=== PATIENT | female | born 1945 | race Caucasian/White ===

== ENCOUNTER 2021-02-09 11:41 | Inpatient (IN) ==
[2021-02-09] MEDS ORDERED: ACETAMINOPHEN 325 MG TAB PO PRN (12:32)
[2021-02-09] MEDS ORDERED: ONDANSETRON INJ 2 MG/ML 2 ML VIAL IV PRN (12:32)
[2021-02-09] MEDS ORDERED: POLYETHYLENE (MIRALAX) 17 GM PACK PO PRN (12:32)
[2021-02-09] MEDS ORDERED: POTASSIUM CHLORIDE 10 MEQ / 100ML WTR IV STA ×2 (12:43→13:04)
[2021-02-09] MEDS ORDERED: CARBOHYDRATES FOR HYPOGLYCEMIA PO PRN ×2 (12:44→16:30)
[2021-02-09] MEDS ORDERED: DEXTROSE 50% 50 ML SYRINGE IV PRN ×2 (12:44→16:30)
[2021-02-09] MEDS ORDERED: GLUCAGON FOR INJ 1 MG VIAL SQ PRN (12:44)
[2021-02-09] MEDS ORDERED: GLUCOSE 10 TABS/TUBE PO PRN ×2 (12:44→16:30)
[2021-02-09] MEDS ORDERED: GLUCOSE 40% GEL 15 GM TUBE PO PRN ×2 (12:44→16:30)
[2021-02-09] MEDS ORDERED: MAGNESIUM SULFATE / D5W 1 GM/100 ML BAG IV STA (13:03)
[2021-02-09 13:47] LABS: Appearance Urine Clear (Clear); Bacteria Urine Automated 4+ (Negative); Bilirubin Urine Negative (Negative); Blood Urine Negative (Negative); Cast Urine Automated 0 /lpf (0-5); Color Urine Yellow; Epithelial Cell Urine Auto 0-5 /lpf (0-5); Glucose Urine UA Negative (Negative); Ketones Urine Negative (Negative); Leukocyte Esterase Urine 3+ (Negative); Nitrite Urine Negative (Negative); Protein Urine Negative (Negative); RBC Urine Automated 0-4 /hpf (0-4); Specific Gravity Urine 1.011 (1.000-1.030); Urobilinogen Urine Negative (Negative); WBC Urine Automated >30 /hpf (0-5); pH Urine 7.5 (4.5-7.5)
--- NOTE | 2021-02-09 14:49 | XRay Report ---
XR chest 2V PA/lateral HISTORY: Shortness of breath. Evaluate for mass. COMPARISON: Chest 11/24/2019. FINDINGS: No pneumothorax. No pleural effusions. The lungs are hyperexpanded with apical predominant emphysematous changes. Interstitial thickening at the lung bases favor vascular crowding from the emp hysema. Otherwise, no focal lung consolidations to suggest pneumonia. No evidence for pulmonary edema . Stable right hilar prominence and a linear scarlike density within the right midlung zone. Old post traumatic changes again noted within the left humeral head/neck. IMPRESSION: No significant change compared to the prior study. No acute process. Emphysema. ACT 112: Negative or not required by law. Electronically signed by: Austin Pacheco M.D. 02/09/2021 2:48 PM
[2021-02-09 15:27] LABS: Base Excess ABG 10.1 mEq/L (-9-1.8); HCO3 ABG 33 mmol/L (19-24); Oxygen Saturation ABG 99.1 % (90-95); PCO2 ABG 38 mmHg (35-46); PO2 ABG 137 mmHg (80-95)
[2021-02-09 15:36] LABS: Allen Test Pos (Pos)
[2021-02-09 15:38] LABS: pH ABG 7.56 (7.35-7.45)
--- NOTE | 2021-02-09 16:13 | History & Physical Report ---
Date of Service February 09, 2021 Assessment & Plan (1) Metabolic alkalosis: Plan: pt has a significant metabolic alkalosis secondary to dirlevy conley in the face of her typically compensated respiratory acidosis, making it difficult to compensate, will be given acetazolamide to help reduce serum bicarbinate levels given Ph is > 7.55 (2) Hyponatremia: Plan: Patient has severe hyponatremia her only symptoms are fatigue patient's urine sodium however is curiously low. Patient be volume restricted she appears euvolemic on exam awaiting osmolalities nephrology consultation is considering hypertonic saline certainly need to replete her other electrolytes (3) Hypokalemia: Plan: Patient's hypokalemia is significant she has received diuretics as an outpatient will currently replete with 30 mEq IV she received 20 p.o. in the emergency department she is due to receive another 80 p.o. over the next 12 hours (4) Chronic respiratory failure with hypoxia, on home O2 therapy: Plan: Patient suffers from COPD secondary to tobacco use she typically is on 3 L of oxygen at home with 4 L with exertion. (5) COPD (chronic obstructive pulmonary disease): Plan: Patient will continue on her inhaled medications at this time, she typically is on fluticasone salmeterol she will be offered duo nebs as needed if need be Patient is in a metabolic alkalosis at this point in time Dr. Carbajal saw the patient was ordered acetazolamide, (6) Lower extremity edema: (7) DVT prophylaxis: Plan: (Abuse for DVT prevention Plan: Clear etiology of lower extremity edema certainly in the face of oxygen requiring chronic lung disease cor pulmonale or pulmonary hypertension may be at play echocardiogram will be pending to evaluate right-sided heart pressures. Another consideration could be made thromboembolism as the patient recently had orthopedic surgery. Considerations for CT scan of the chest could be undertaken given the previous [facility] the [facility]. History of Present Illness Primary Care Provider: [facility] 75-year-old female who is a resident of [facility] for subacute rehab after sustaining a right hip fracture and repair November 29, 2020. Since November the patient's had progressive lower extremity swelling. She reportedly went to [facility] on DVT prevention after her hip. Patient subsequently had increasing shortness of breath and was referred to Dr. Francisco Carbajal for evaluation of his baseline COPD who typically wears 3 L of oxygen at rest and 4 L with exertion. When at Dr. Carbajal's office he noticed her outpatient laboratories had shown significant hyponatremia and hypokalemia and recommended she come to the hospital for evaluation. The patient's only complaint is severe fatigue she has a resting tremor which various medications have been tried to reduce she denies drinking excessive water she states she has had normal bowel and bladder function for her without excess of either she however does have a poor appetite and has been depressed lately. [facility] did [facility] her antidepressant and they have been trying various agents including ropinirole primidone and gabapentin to help tremors and restless leg. Interestingly the patient also said Covid this past August after having 1 of 2 vaccines. I personally spoke to Dr. Carbajal and Dr. Setpan Bennett regarding her hyponatremia. Dr. Ziegler rattling machine tender requests that if the patient's urine osmolality is not significantly low to give her 150 cc of 3% saline over 3 hours Allergies Allergy/AdvReac Type Severity Reaction Status Date / Time NSAIDS (Non-Steroidal AdvReac Gastrointestinal Verified 02/09/21 10:57 Anti-Inflamma Upset Sulfa (Sulfonamide AdvReac Gastrointestinal Verified 02/09/21 10:57 Antibiotics) Upset Home Medications Medication Instructions Recorded Confirmed Type alprazolam 0.5 mg tablet 0.5 mg PO Q12 11/24/19 02/09/21 History atorvastatin 10 mg tablet 10 mg PO HS 11/24/19 02/09/21 History calcium carbonate 500 mg (1,250 1 tab PO BID 11/24/19 02/09/21 History mg)-vitamin D3 200 unit tablet (Oyster Shell Calcium-Vit D3) citalopram 40 mg tablet 40 mg PO QAM 11/24/19 02/09/21 History cyanocobalamin (vitamin B-12) 1,000 mcg PO QAM 11/24/19 02/09/21 History 1,000 mcg tablet (Vitamin B-12) fluticasone propionate 115 2 puff INHALATION BID 11/24/19 02/09/21 History mcg-salmeterol 21 mcg/actuation HFA inhaler (Advair HFA) metformin 500 mg tablet 500 mg PO BID 11/24/19 02/09/21 History multivitamin (Multiple Vitamins) 1 tab PO QAM 11/24/19 02/09/21 History acetaminophen 500 mg tablet 1,000 mg PO TID PRN 02/09/21 02/09/21 History (Tylenol Extra Strength) aripiprazole 10 mg tablet 10 mg PO QAM 02/09/21 02/09/21 History cholecalciferol (vitamin D3) 125 5,000 unit PO QAM 02/09/21 02/09/21 History mcg (5,000 unit) capsule furosemide 20 mg tablet 40 mg PO BID PRN tab 02/09/21 02/09/21 History latanoprost 0.005 % eye drops 1 drp OPHTHALMIC (EYE) DAILY 02/09/21 02/09/21 History magnesium hydroxide 400 mg/5 mL 5 ml PO DAILY PRN 02/09/21 02/09/21 History oral suspension (Milk of Magnesia) metolazone 2.5 mg tablet 2.5 mg PO QAM PRN tab 02/09/21 02/09/21 History metoprolol tartrate 25 mg tablet 12.5 mg PO BID tab 02/09/21 02/09/21 History omeprazole 20 mg capsule,delayed 20 mg PO QAM 02/09/21 02/09/21 History release ondansetron HCl 4 mg tablet 4 mg PO Q4H PRN 02/09/21 02/09/21 History (Zofran) oxycodone 5 mg capsule 5 mg PO Q8H PRN 02/09/21 02/09/21 History oxycodone 5 mg capsule 10 mg PO Q6H PRN 02/09/21 02/09/21 History potassium chloride 20 mEq oral 40 meq PO TID 02/09/21 02/09/21 History packet primidone 50 mg tablet 50 mg PO QAM PRN tab 02/09/21 02/09/21 History ropinirole 0.25 mg tablet 0.25 mg PO HS 02/09/21 02/09/21 History trazodone 50 mg tablet 75 mg PO DAILY tab 02/09/21 02/09/21 History Past Med/Surg History Medical History Benzodiazepine dependence Breast CA Chronic respiratory failure with hypoxia, on home O2 therapy COPD (chronic obstructive pulmonary disease) Diverticulosis Glaucoma Hyperlipidemia Hypertension IBS (irritable bowel syndrome) Insomnia Nodule of right lung Osteoporosis RLS (restless legs syndrome) Rosacea Sensorineural deafness Tremor Urethral prolapse Urinary incontinence Vitamin D deficiency Surgical History H/O colonoscopy H/O right cataract extraction H/O right mastectomy History of esophagogastroduodenoscopy (EGD) History of tonsillectomy Hx of tubal ligation Status post myringotomy with insertion of tube Family History Other Cancer Colonic polyp Coronary heart disease Hypertension IBS (irritable bowel syndrome) Stroke Social History Smoking Status: Former smoker Tobacco Type: Cigarettes Number of Years Since Quit: 4; Hx Alcohol Use: No Preferred Language: Georgian Communication Ability: Effective Litigation Specialist Required: No Beliefs That Will Affect Care: None [facility] Current Living Situation Comment[facility] Feels Safe at Home: Yes Assistive Devices: Oxygen - Continuous Review of Systems Review of Systems: Mild distress and moderate fatigue no headache, no visual changes no speech or swallowing issues no chest pain, pressure or palpitations Baseline shortness of breath baseline sputum production with no change in color quantity or consistency, cough or wheezes no abdominal pain, nausea or vomiting, diarrhea or constipation no dysuria, hematuria or frequency Improving hip pain bilateral lower extremity swelling to knees no back pain, CVA tenderness or radicular pain no bruising, bleeding or rashes no focal signs of weakness or numbness or altered sensation no complaints of anxiety or depression.. Physical Exam Physical Exam: The patient appeared well nourished and normally developed. Vital signs as documented. Head exam is normocephalic atraumatic Neck is without JVD, thyromegaly, or carotid bruits. Lungs are clear to auscultation, no focal loss of breath sounds Cardiac exam, Rhythm is regular.. No murmurs, rubs or gallops. Abdominal exam reveals normal bowel sounds, soft non tender, no masses Extremities are trace to 1+ bilaterally lower extremity edema, both pedal pulses are present Neurologic exam is alert and oriented, he is of some clinical manifestations of parkinsonism. She does have some resting tremor but no pill-rolling tremor seems to extinguish when attention is paid to it Psychologically is without concerns for anxiety or depression Results & Data Results & Data ([facility]) Vital Signs (Past 12 Hours) Vital Signs Temp Pulse Resp BP Pulse Ox 02/09/21 11:46 97.9 F 73 18 107/63 99 Diagnostic Findings Chest X-Ray 02/09/21 12:46 XR chest 2V PA/lateral HISTORY: Shortness of breath. Evaluate for mass. COMPARISON: Chest 11/24/2019. FINDINGS: No pneumothorax. No pleural effusions. The lungs are hyperexpanded with apical predominant emphysematous changes. Interstitial thickening at the lung bases favor vascular crowding from the emphysema. Otherwise, no focal lung consolidations to suggest pneumonia. No evidence for pulmonary edema. Stable right hilar prominence and a linear scarlike density within the right midlung zone. Old posttraumatic changes again noted within the left humeral head/neck. IMPRESSION: No significant change compared to the prior study. No acute process. Emphysema. ACT 112: Negative or not required by law. Electronically signed by: Austin Pacheco M.D. 02/09/2021 2:48 PM Code Status & VTE Plan Code Status DNR VTE Prophylaxis Plan VTE Prophylaxis will be ordered: Yes PG Care Time/CCT Total # of Minutes Spent Total Time Spent with Patient: Total time spent is greater than 50% in coordination of care (as documented) at patient's floor/unit and/or counseling patient: Coding Level of Care Code 78365 Initial Inpt Care Lvl 3 Diagnoses Hyponatremia E87.1 Hypokalemia E87.6 Chronic respiratory failure with hypoxia, on home O2 therapy J96.11; Z99.81 COPD (chronic obstructive pulmonary disease) J44.9 COPD type: unspecified COPD Lower extremity edema R60.0 Metabolic alkalosis E87.3 DVT prophylaxis Z29.9 (1) COPD (chronic obstructive pulmonary disease) COPD type: unspecified COPD Qualified Code(s): J44.9 - Chronic obstructive pulmonary disease, unspecified
[2021-02-09] MEDS ORDERED: POTASSIUM CHLORIDE 10 MEQ / 100ML WTR IV ONE (16:19)
[2021-02-09 16:30] LABS: BUN Creatinine Ratio 14.1 (10-20); Blood Urea Nitrogen 13 mg/dl (7-18); Calcium 8.7 mg/dl (8.5-10.1); Carbon Dioxide 35 mmol/L (21-32); Chloride 70 mmol/L (98-107); Est GFR (African American) 73.5 ml/min; Est GFR (Non-African American) 63.4 ml/min; Glucose 169 mg/dl (70-99); Sodium 114 mmol/L (136-145)
[2021-02-09] MEDS ORDERED: GLUCAGON FOR INJ 1 MG VIAL IM PRN (16:30)
[2021-02-09] MEDS: POTASSIUM CHLORIDE / WTR 10 MEQ/100 ML PLCT IV SCH ×2 (16:46→17:46)
--- NOTE | 2021-02-09 19:36 | Nephrology Consultation ---
Date of Consultation February 09, 2021 Assessment & Plan (1) Hyponatremia: Severe, chronic hyponatremia. Assessment suggests that Haylee may have mild symptoms including confusion, mild nausea, and poor appetite. She has a normal serum creatinine. Dysnatremia is related to diuretic use, notably the use of metolazone. This has been complicated by poor solute intake. Urine sodium is low at 15. She is intravascularly contracted and will need to be closely monitored as hypokalemia and intravascular volume are corrected. She certainly has the ability to autocorrect. Urine osmolality suggestive of decreased EAV as well as possible SIADH. Certainly multiple medications as well as underlying lung disease may contribute to SIADH. At this time, goal will be slow immediate correction of ~2-3 mmol/L. Avoid correction >0.5 mmol/L/hr. A bolus of 150 ml 3% saline is ordered to infuse over 3 hours. Metabolic profile will then be rechecked and monitored every 4 hours. TTE pending. (2) Hypokalemia: Attributed to diuretics and poor oral intake. IV replacement has been provided repeat labs pending. (3) Metabolic alkalosis: Related to volume contraction and diuretics. Acetazolimide has been provided. I expect this to improve with IV salt replacement as well. History of Present Illness Reason for Consultation: Hyponatremia Requesting Physician: aJmes Spivey Attending Physician: James Spivey History of Present Illness Mrs. Haylee Plaza is a 75 year old female with COPD, significant smoking history, dementia, depression, RLS, NIDDM, OA/DJD who was referred from the lmonology clinic to the ER today for evaluation of hyponatremia. I discussed the patient's condition with Dr. Carbajal earlier today. Haylee is a resident at [facility] following [facility]IF for a right hip fracture in November. Since admission to subacute rehab, she has experienced progressive lower extremity edema. She has been on increasing doses of diuretics and was referred to Dr. Carbajal for additional evaluation. Laboratory studies over the past month have demonstrated progressive hyponatremia and hypokalemia. Serum sodium: 136 on January 31; 130 on February 02; 125 on February 06; and 116 on February 08. I discussed the patient's condition and plan of care with Dr. Spivey earlier today. I saw and evaluated Haylee in the ER this evening. She was not aware of the reason for the admission. She states that her breathing is comfortable. She denies any GI symptoms, including diarrhea. She does note that her appetite has been very poor. aHylee states that she has been feeling well recently. She is a very poor hi storian however. She told Stephen was able to tell me her name and date of . She did not know the date including month or year. She told me that she lives in [place] and after I asked if she was a resident at [facility] recalled the facility. She was not able to tell me the name of the hospital or the SNF that she resides. She was not able to name the president. She did tell me that she has been very tired and depressed recently. She also noted that she has been struggling with severe RLS. It is noted that citalopram was recently increased and various medications including ropinirole, primidone, and gabapentin have been used to control tremors and restless legs. In the ER, she was treated with 30 mEq IV KCl and 1 gram magnesium sulfate. Serum sodium 114 mmol/L and potassium 3.0 mmol/L. Urine osmolality 290. ABG demonstrating a metabolic alkalosis with pH 7.55 for which acetazolamide was prescribed. Allergies Allergy/AdvReac Type Severity Reaction Status Date / Time NSAIDS (Non-Steroidal AdvReac Gastrointestinal Verified 02/09/21 10:57 Anti-Inflamma Upset Sulfa (Sulfonamide AdvReac Gastrointestinal Verified 02/09/21 10:57 Antibiotics) Upset Home Medications Medication Instructions Recorded Confirmed Type alprazolam 0.5 mg tablet 0.5 mg PO Q12 11/24/19 02/09/21 History atorvastatin 10 mg tablet 10 mg PO HS 11/24/19 02/09/21 History calcium carbonate 500 mg (1,250 1 tab PO BID 11/24/19 02/09/21 History mg)-vitamin D3 200 unit tablet (Oyster Shell Calcium-Vit D3) citalopram 40 mg tablet 40 mg PO QAM 11/24/19 02/09/21 History cyanocobalamin (vitamin B-12) 1,000 mcg PO QAM 11/24/19 02/09/21 History 1,000 mcg tablet (Vitamin B-12) fluticasone propionate 115 2 puff INHALATION BID 11/24/19 02/09/21 History mcg-salmeterol 21 mcg/actuation HFA inhaler (Advair HFA) metformin 500 mg tablet 500 mg PO BID 11/24/19 02/09/21 History multivitamin (Multiple Vitamins) 1 tab PO QAM 11/24/19 02/09/21 History acetaminophen 500 mg tablet 1,000 mg PO TID PRN 02/09/21 02/09/21 History (Tylenol Extra Strength) aripiprazole 10 mg tablet 10 mg PO QAM 02/09/21 02/09/21 History cholecalciferol (vitamin D3) 125 5,000 unit PO QAM 02/09/21 02/09/21 History mcg (5,000 unit) capsule furosemide 20 mg tablet 40 mg PO BID PRN tab 02/09/21 02/09/21 History latanoprost 0.005 % eye drops 1 drp OPHTHALMIC (EYE) DAILY 02/09/21 02/09/21 History magnesium hydroxide 400 mg/5 mL 5 ml PO DAILY PRN 02/09/21 02/09/21 History oral suspension (Milk of Magnesia) metolazone 2.5 mg tablet 2.5 mg PO QAM PRN tab 02/09/21 02/09/21 History metoprolol tartrate 25 mg tablet 12.5 mg PO BID tab 02/09/21 02/09/21 History omeprazole 20 mg capsule,delayed 20 mg PO QAM 02/09/21 02/09/21 History release ondansetron HCl 4 mg tablet 4 mg PO Q4H PRN 02/09/21 02/09/21 History (Zofran) oxycodone 5 mg capsule 5 mg PO Q8H PRN 02/09/21 02/09/21 History oxycodone 5 mg capsule 10 mg PO Q6H PRN 02/09/21 02/09/21 History potassium chloride 20 mEq oral 40 meq PO TID 02/09/21 02/09/21 History packet primidone 50 mg tablet 50 mg PO QAM PRN tab 02/09/21 02/09/21 History ropinirole 0.25 mg tablet 0.25 mg PO HS 02/09/21 02/09/21 History trazodone 50 mg tablet 75 mg PO DAILY tab 02/09/21 02/09/21 History Patient History Medical History Benzodiazepine dependence Breast CA Chronic respiratory failure with hypoxia, on home O2 therapy COPD (chronic obstructive pulmonary disease) Diverticulosis Glaucoma Hyperlipidemia Hypertension IBS (irritable bowel syndrome) Insomnia Nodule of right lung Osteoporosis RLS (restless legs syndrome) Rosacea Sensorineural deafness Tremor Urethral prolapse Urinary incontinence Vitamin D deficiency Surgical History H/O colonoscopy H/O right cataract extraction H/O right mastectomy History of esophagogastroduodenoscopy (EGD) History of tonsillectomy Hx of tubal ligation Status post myringotomy with insertion of tube Family History Other Cancer Colonic polyp Coronary heart disease Hypertension IBS (irritable bowel syndrome) Stroke Social History Smoking Status: Former smoker Tobacco Type: Cigarettes Number of Years Since Quit: 4; Hx Alcohol Use: No Preferred Language: Irish Feels Safe at Home: Yes Review of Systems Constitutional: + fatigue and + anorexia; no weight loss, no weight gain and no problem reported Eyes: no problem reported Ear, Nose, Mouth, Throat: no problem reported Respiratory: no problem reported Cardiovascular: no problem reported Gastrointestinal: no problem reported Musculoskeletal: no problem reported Integumentary: no problem reported Neurologic: no problem reported Psychiatric: no problem reported Endocrine: no problem reported Hematologic / Lymphatic: no problem reported Physical Exam Constitutional: well developed; no acute distress Eyes: no scleral abnormality and no corneal abnormality ENMT: Mouth: no oral mucosal abnormality and oral mucous membranes not dry Neck: normal visual inspection and trachea midline Respiratory: normal respiratory effort Auscultation: lungs clear to auscultation bilaterally Cardiovascular: Rate/Rhythm: regular rate Heart Sounds: normal S1 and normal S2 Extremities: + edema Musculoskeletal: Extremities: no cyanosis and no clubbing Skin: normal turgor; no lesions Neurologic: Motor/Sensory: no tremor and no asterixis Psychiatric: Orientation: alert and oriented x 3 Results & Data ([facility]) Vital Signs (Past 12 Hours) Vital Signs Temp Pulse Resp BP Pulse Ox 02/09/21 17:00 70 15 119/57 L 98 02/09/21 16:30 71 14 113/49 L 97 02/09/21 16:00 74 22 111/55 L 95 02/09/21 15:30 76 25 H 96 02/09/21 15:01 77 17 95 02/09/21 14:30 78 18 110/62 97 02/09/21 14:00 75 17 116/63 93 02/09/21 11:46 36.6 C 73 18 107/63 99 Laboratory Results Laboratory Results - last 24 hr 02/09/21 02/09/21 02/09/21 12:50 12:50 13:24 ABG pH ABG pCO2 ABG pO2 ABG HCO3 ABG O2 Saturation ABG Base Excess Tico Test Barometric Pressure Oxygen Given Sodium Potassium Chloride Carbon Dioxide Anion Gap BUN Creatinine Est Cr Clr Drug Dosing Est GFR ( Amer) Est GFR (Non-Af Amer) BUN/Creatinine Ratio Glucose POC Glucose Osmolality Calcium Urine Color Yellow Urine Appearance Clear Urine pH 7.5 Ur Specific Rolla 1.011 Urine Protein Negative Urine Glucose (UA) Negative Urine Ketones Negative Urine Blood Negative Urine Nitrite Negative Urine Bilirubin Negative Urine Urobilinogen Negative Ur Leukocyte Esterase 3+ H Urine WBC (Auto) >30 H Urine RBC (Auto) 0-4 U Hyaline Cast (Auto) 0 U Epithel Cells (Auto) 0-5 Urine Bacteria (Auto) 4+ H Urine Osmolality Ur Random Sodium COVID-19 Eval Order Covid19 at [facility] SARS-CoV-2 (PCR) NEGATIVE 02/09/21 02/09/21 02/09/21 13:24 13:24 15:12 ABG pH ABG pCO2 ABG pO2 ABG HCO3 ABG O2 Saturation ABG Base Excess Tico Test Barometric Pressure Oxygen Given Sodium Potassium Chloride Carbon Dioxide Anion Gap BUN Creatinine Est Cr Clr Drug Dosing Est GFR ( Amer) Est GFR (Non-Af Amer) BUN/Creatinine Ratio Glucose POC Glucose Osmolality Cancelled Calcium Urine Color Urine Appearance Urine pH Ur Specific Roll[place] Urine Protein Urine Glucose (UA) Urine Ketones Urine Blood Urine Nitrite Urine Bilirubin Urine Urobilinogen Ur Leukocyte Esterase Urine WBC (Auto) Urine RBC (Auto) U Hyaline Cast (Auto) U Epithel Cells (Auto) Urine Bacteria (Auto) Urine Osmolality 297 L Ur Random Sodium 15 COVID-19 Eval Order SARS-CoV-2 (PCR) 02/09/21 02/09/21 02/09/21 15:12 15:57 15:57 ABG pH 7.56 H* ABG pCO2 38 ABG pO2 137 H ABG HCO3 33 H ABG O2 Saturation 99.1 H ABG Base Excess 10.1 H Tico Test Pos Barometric Pressure 734.2 Oxygen Given 4L Sodium 114 L* Potassium 3.0 L Chloride 70 L Carbon Dioxide 35 H Anion Gap 10.0 BUN 13 Creatinine 0.90 Est Cr Clr Drug Dosing Not Reportable Est GFR ( Amer) 73.5 Est GFR (Non-Af Amer) 63.4 BUN/Creatinine Ratio 14.1 Glucose 169 H POC Glucose Osmolality 250 L Calcium 8.7 Urine Color Urine Appearance Urine pH Ur Specific Roll[place] Urine Protein Urine Glucose (UA) Urine Ketones Urine Blood Urine Nitrite Urine Bilirubin Urine Urobilinogen Ur Leukocyte Esterase Urine WBC (Auto) Urine RBC (Auto) U Hyaline Cast (Auto) U Epithel Cells (Auto) Urine Bacteria (Auto) Urine Osmolality Ur Random Sodium COVID-19 Eval Order SARS-CoV-2 (PCR) 02/09/21 02/09/21 18:22 19:34 ABG pH ABG pCO2 ABG pO2 ABG HCO3 ABG O2 Saturation ABG Base Excess Tico Test Barometric Pressure Oxygen Given Sodium Pending Potassium Pending Chloride Pending Carbon Dioxide Pending Anion Gap Pending BUN Pending Creatinine Pending Est Cr Clr Drug Dosing Pending Est GFR ( Amer) Pending Est GFR (Non-Af Amer) Pending BUN/Creatinine Ratio Pending Glucose Pending POC Glucose 180 H Osmolality Calcium Pending Urine Color Urine Appearance Urine pH Ur Specific Roll[place] Urine Protein Urine Glucose (UA) Urine Ketones Urine Blood Urine Nitrite Urine Bilirubin Urine Urobilinogen Ur Leukocyte Esterase Urine WBC (Auto) Urine RBC (Auto) U Hyaline Cast (Auto) U Epithel Cells (Auto) Urine Bacteria (Auto) Urine Osmolality Ur Random Sodium COVID-19 Eval Order SARS-CoV-2 (PCR) PG Care Time/CCT Total # of Minutes Spent Total Time Spent with Patient: Total time spent is greater than 50% in coordination of care (as documented) at patient's floor/unit and/or counseling patient: 40 minutes Coding Level of Care Code 47906 Inpt Consult Level 5 Diagnoses Hypokalemia E87.6 Hyponatremia E87.1 Metabolic alkalosis E87.3
[2021-02-09] MEDS ORDERED: SODIUM CHLORIDE 3 % 500 ML IV SCH (20:00)
[2021-02-09] MEDS ORDERED: PATIENT'S HEIGHT AND/OR WEIGHT NEEDED SCH (20:00)
[2021-02-09 20:31] LABS: BUN Creatinine Ratio 16.5 (10-20); Calcium 8.9 mg/dl (8.5-10.1); Creatinine Clr Calc Pharmacy 67.4 ml/min; Est GFR (African American) 90.2 ml/min; Est GFR (Non-African American) 77.8 ml/min; Potassium 3.2 mmol/L (3.5-5.1)
[2021-02-09] MEDS ORDERED: POTASSIUM CHLORIDE CRTAB 20 MEQ TABCR PO SCH ×2 (21:00)
[2021-02-09] MEDS: INSULIN ASPART 100 UNITS/ML 3 ML PEN SC SCH ×2 (22:16→22:18)
[2021-02-09] MEDS: ENOXAPARIN INJ 40 MG/0.4 ML SYR SQ SCH (22:19)
[2021-02-09] MEDS: acetaZOLAMIDE 250 MG TAB PO SCH (22:20)
[2021-02-09] MEDS: METOPROLOL TARTRATE 25 MG TAB PO SCH (22:20)
[2021-02-10] LABS: BUN Creatinine Ratio 16.3 (10-20); Calcium 8.8 mg/dl (8.5-10.1); Creatinine Clr Calc Pharmacy 72.1 ml/min; Est GFR (African American) 97.9 ml/min; Est GFR (Non-African American) 84.5 ml/min; Potassium 2.7 mmol/L (3.5-5.1)
[2021-02-10] MEDS ORDERED: SODIUM CHLORIDE 3 % 500 ML IV SCH (00:30)
[2021-02-10] MEDS: POTASSIUM CHLORIDE / WTR 10 MEQ/100 ML PLCT IV SCH ×9 (00:40→12:35)
[2021-02-10 03:46] LABS: Hematocrit (blood only) 28.6 % (37-47); Hemoglobin 9.1 g/dL (12.0-16.0); Mean Corpuscular Hgb Conc 31.8 g/dL (32-36); Mean Corpuscular Volume 69.1 fL (80-100); Mean Platelet Volume 9.8 fL (7.4-10.4); Platelet Count 305 K/uL (130-400); RDW Coefficient of Variation 15.1 % (11.5-14.5); RDW Standard Deviation 37.9 fL (36.4-46.3); Red Blood Count 4.14 M/uL (4.2-5.4); White Blood Count 8.43 K/uL (4.8-10.8)
[2021-02-10 04:09] LABS: BUN Creatinine Ratio 17.9 (10-20); Calcium 8.6 mg/dl (8.5-10.1); Creatinine Clr Calc Pharmacy 77.6 ml/min; Est GFR (African American) 101.6 ml/min; Est GFR (Non-African American) 87.6 ml/min; Magnesium 2.1 mg/dl (1.8-2.4); Potassium 2.7 mmol/L (3.5-5.1)
[2021-02-10] MEDS ORDERED: POTASSIUM CHLORIDE CRTAB 20 MEQ TABCR PO STA (04:21)
[2021-02-10 04:42] LABS: Phosphorus 2.7 mg/dl (2.5-4.9)
[2021-02-10] MEDS ORDERED: POTASSIUM CHLORIDE 10 MEQ / 100ML WTR IV STA (07:22)
[2021-02-10] MEDS: FLUTICASONE/VILANTEROL 200/25MCG 14 PUFFS/INHALER INH SCH (08:13)
[2021-02-10] MEDS: acetaZOLAMIDE 250 MG TAB PO SCH ×2 (08:14→16:10)
[2021-02-10] MEDS: METOPROLOL TARTRATE 25 MG TAB PO SCH ×2 (08:14→21:04)
[2021-02-10] MEDS: MULTIVITAMIN TAB PO SCH (08:15)
[2021-02-10 08:16] LABS: Estimated Average Glucose 169 mg/dl; Hemoglobin A1C 7.5 % (4.5-5.6)
[2021-02-10] MEDS: POTASSIUM CHLORIDE CRTAB 20 MEQ TABCR PO SCH ×3 (08:16→21:04)
[2021-02-10] MEDS: INSULIN ASPART 100 UNITS/ML 3 ML PEN SC SCH ×4 (08:20→21:13)
--- NOTE | 2021-02-10 08:40 | Pulmonology Progress Note ---
Date of Service February 10, 2021 Assessment & Plan (1) COPD (chronic obstructive pulmonary disease): Plan: Impression: 75-year-old female with advanced COPD admitted with symptomatic hyponatremia. Her x-ray is stable. Recommendations: 1. COPD: Continue Breo. We will add Incruse to her regimen. She is not wheezing or bronchospastic currently. No indication for steroids or antibiotics at this point time. 2. Chronic hypoxemic respiratory failure: Continue supplemental oxygen titrated to keep saturations at or above 88%. 3. Management of the patient's electrolyte abnormalities and acid-base status is deferred to nephrology and the patient's primary admitting service. Defer evaluation of her lower extremity edema to the primary service as well. Patient's respiratory status appears to be stable at this point time. I think that her dyspnea may be attributable to her underlying electrolyte abnormalities. Recommend PT and OT evaluations. We will follow up with her tomorrow COPD type: unspecified COPD Qualified Code(s): J44.9 - Chronic obstructive pulmonary disease, unspecified (2) Chronic respiratory failure with hypoxia, on home O2 therapy: (3) Metabolic alkalosis: Admission and Anticipated Discharge Date Admission Date: February 09, 2021 Subjective Patient seen and examined. EMR reviewed. The patient is sitting up at the bedside. She complains of continued shortness of breath and generalized malaise. She is not coughing or expectorating significant phlegm. Review of Systems Review of Systems: Unchanged from prior Physical Exam Constitutional: well developed; no acute distress Eyes: no scleral abnormality and no corneal abnormality ENMT: Mouth: no oral mucosal abnormality and oral mucous membranes not dry Neck: normal visual inspection and trachea midline Respiratory: normal respiratory effort Auscultation: lungs clear to auscultation bilaterally Cardiovascular: Rate/Rhythm: regular rate Heart Sounds: normal S1 and normal S2 Extremities: + edema Musculoskeletal: Extremities: no cyanosis and no clubbing Skin: normal turgor; no lesions Neurologic: Motor/Sensory: no tremor and no asterixis Psychiatric: Orientation: alert and oriented x 3 Results & Data Results & Data ([facility]) Vital Signs (Past 12 Hours) Vital Signs Temp Pulse Pulse Pulse Resp BP Pulse Ox 02/10/21 08:00 36.7 C 88 18 102/63 99 02/10/21 06:12 70 02/10/21 03:54 36.6 C 70 18 120/71 96 07/15/21 23:37 37.0 C 18 110/66 95 Laboratory Results 02/10/21 03:34 Arterial blood gas 7.5 6/38/137/33 Sodium last evening was 117 with potassium of 2.7. Chemistries this morning are pending Serum osmolality 250 Hemoglobin A1c 7.5 Urine awesome to 97 Urine sodium 15 Diagnostic Findings Chest x-ray was independently reviewed. It demonstrated emphysematous changes with no acute findings. PG Care Time/CCT Total # of Minutes Spent Total Time Spent with Patient: Total time spent is greater than 50% in coordination of care (as documented) at patient's floor/unit and/or counseling patient: Coding Level of Care Code 99544 Subseq Hosp Care Lvl 3 Diagnoses COPD (chronic obstructive pulmonary disease) J44.9 COPD type: unspecified COPD Chronic respiratory failure with hypoxia, on home O2 therapy J96.11; Z99.81 Metabolic alkalosis E87.3
[2021-02-10 09:29] LABS: BUN Creatinine Ratio 15.1 (10-20); Calcium 8.2 mg/dl (8.5-10.1); Creatinine Clr Calc Pharmacy 73.2 ml/min; Est GFR (African American) 99.6 ml/min; Potassium 3.1 mmol/L (3.5-5.1)
[2021-02-10] MEDS ORDERED: SODIUM CHLORIDE 1 GM TABLET PO STA ×2 (10:05→17:28)
[2021-02-10] MEDS: UMECLIDINIUM BROMIDE 62.5MCG/BLISTER 7 PUFFS/INHALER INH SCH (10:05)
--- NOTE | 2021-02-10 10:09 | Nephrology Progress Note ---
Date of Service February 10, 2021 Assessment & Plan (1) Hyponatremia: Plan: Attributed to diuretics and poor oral solute intake. Appropriate improvement overnight with fluid restriction and 150 ml of hypertonic saline. Haylee continues to require a large amount of potassium replacement this AM. Prior to most recent labs, 20 mEq of potassium had been given IV. An additional 30 mEq IV and 40 mEq PO are ordered. I have ordered 1 gm of PO NaCl and a repeat metabolic profile for this afternoon. Urine osmolality will also be measured, I suspect she may start to correct since diuretics have been held and intravascular volume restored. Volume status acceptable. Continue to hold diuretics. Encourage dietary protein intake. Daily fluid restriction 1.2 L. TTE pending. (2) Hypokalemia: Plan: IV and PO replacement ordered. Repeat labs this afternoon including K+ and Mg+. (3) Metabolic alkalosis: Plan: Related to volume contraction and diuretics. Acetazolamide has been provided. Admission and Anticipated Discharge Date Admission Date: February 09, 2021 Subjective No acute events overnight. Haylee was upset and emotional this AM. She is frustrated about being in the hospital and her IVs are making her uncomfortable. Appetite remains poor. She denies any shortness of breath. No nausea reported. No GI complaints. Review of Systems Constitutional: + anorexia; no problem reported Eyes: no problem reported Ear, Nose, Mouth, Throat: no problem reported Respiratory: no problem reported Cardiovascular: no problem reported Gastrointestinal: no problem reported Musculoskeletal: no problem reported Integumentary: no problem reported Neurologic: no problem reported Psychiatric: no problem reported Endocrine: no problem reported Hematologic / Lymphatic: no problem reported Physical Exam Constitutional: well developed; no acute distress Eyes: no scleral abnormality and no corneal abnormality ENMT: Mouth: no oral mucosal abnormality and oral mucous membranes not dry Neck: normal visual inspection and trachea midline Respiratory: normal respiratory effort Auscultation: lungs clear to auscultation bilaterally Cardiovascular: Rate/Rhythm: regular rate Heart Sounds: normal S1 and normal S2 Extremities: + edema Musculoskeletal: Extremities: no cyanosis and no clubbing Skin: normal turgor; no lesions Neurologic: Motor/Sensory: no tremor and no asterixis Psychiatric: Orientation: alert and oriented x 3 Results & Data ([facility]) Vital Signs (Past 12 Hours) Vital Signs Temp Pulse Pulse Pulse Resp BP Pulse Ox 02/10/21 08:00 36.7 C 87 88 18 102/63 99 02/10/21 06:12 70 02/10/21 03:54 36.6 C 70 18 120/71 96 02/09/21 23:37 37.0 C 18 110/66 95 Laboratory Results Laboratory Results - last 24 hr 02/09/21 02/09/21 02/09/21 12:50 12:50 13:24 WBC RBC Hgb Hct MCV MCH MCHC RDW Std Deviation RDW Coeff of Zen Plt Count MPV ABG pH ABG pCO2 ABG pO2 ABG HCO3 ABG O2 Saturation ABG Base Excess [place] Test Barometric Pressure Oxygen Given Sodium Potassium Chloride Carbon Dioxide Anion Gap BUN Creatinine Est Cr Clr Drug Dosing Est GFR ( Amer) Est GFR (Non-Af Amer) BUN/Creatinine Ratio Glucose POC Glucose Estimat Average Glucose Hemoglobin A1c Osmolality Calcium Phosphorus Magnesium Urine Color Yellow Urine Appearance Clear Urine pH 7.5 Ur Specific [place] 1.011 Urine Protein Negative Urine Glucose (UA) Negative Urine Ketones Negative Urine Blood Negative Urine Nitrite Negative Urine Bilirubin Negative Urine Urobilinogen Negative Ur Leukocyte Esterase 3+ H Urine WBC (Auto) >30 H Urine RBC (Auto) 0-4 U Hyaline Cast (Auto) 0 U Epithel Cells (Auto) 0-5 Urine Bacteria (Auto) 4+ H Urine Osmolality Ur Random Sodium Nasal Screen MRSA (PCR) COVID-19 Eval Order Covid19 at [facility] SARS-CoV-2 (PCR) NEGATIVE 02/09/21 02/09/21 02/09/21 13:24 13:24 15:12 WBC RBC Hgb Hct MCV MCH MCHC RDW Std Deviation RDW Coeff of Zen Plt Count MPV ABG pH ABG pCO2 ABG pO2 ABG HCO3 ABG O2 Saturation ABG Base Excess [place] Test Barometric Pressure Oxygen Given Sodium Potassium Chloride Carbon Dioxide Anion Gap BUN Creatinine Est Cr Clr Drug Dosing Est GFR ( Amer) Est GFR (Non-Af Amer) BUN/Creatinine Ratio Glucose POC Glucose Estimat Average Glucose Hemoglobin A1c Osmolality Cancelled Calcium Phosphorus Magnesium Urine Color Urine Appearance Urine pH Ur Specific [place] Urine Protein Urine Glucose (UA) Urine Ketones Urine Blood Urine Nitrite Urine Bilirubin Urine Urobilinogen Ur Leukocyte Esterase Urine WBC (Auto) Urine RBC (Auto) U Hyaline Cast (Auto) U Epithel Cells (Auto) Urine Bacteria (Auto) Urine Osmolality 297 L Ur Random Sodium 15 Nasal Screen MRSA (PCR) COVID-19 Eval Order SARS-CoV-2 (PCR) 02/09/21 02/09/21 02/09/21 15:12 15:57 15:57 WBC RBC Hgb Hct MCV MCH MCHC RDW Std Deviation RDW Coeff of Zen Plt Count MPV ABG pH 7.56 H* ABG pCO2 38 ABG pO2 137 H ABG HCO3 33 H ABG O2 Saturation 99.1 H ABG Base Excess 10.1 H [place]ico Test Pos Barometric Pressure 734.2 Oxygen Given 4L Sodium 114 L* Potassium 3.0 L Chloride 70 L Carbon Dioxide 35 H Anion Gap 10.0 BUN 13 Creatinine 0.90 Est Cr Clr Drug Dosing Not Reportable Est GFR ( Amer) 73.5 Est GFR (Non-Af Amer) 63.4 BUN/Creatinine Ratio 14.1 Glucose 169 H POC Glucose Estimat Average Glucose Hemoglobin A1c Osmolality 250 L Calcium 8.7 Phosphorus Magnesium Urine Color Urine Appearance Urine pH Ur Specific [place] Urine Protein Urine Glucose (UA) Urine Ketones Urine Blood Urine Nitrite Urine Bilirubin Urine Urobilinogen Ur Leukocyte Esterase Urine WBC (Auto) Urine RBC (Auto) U Hyaline Cast (Auto) U Epithel Cells (Auto) Urine Bacteria (Auto) Urine Osmolality Ur Random Sodium Nasal Screen MRSA (PCR) COVID-19 Eval Order SARS-CoV-2 (PCR) 02/09/21 02/09/21 02/09/21 18:22 19:34 20:00 WBC RBC Hgb Hct MCV MCH MCHC RDW Std Deviation RDW Coeff of Zen Plt Count MPV ABG pH ABG pCO2 ABG pO2 ABG HCO3 ABG O2 Saturation ABG Base Excess [place] Test Barometric Pressure Oxygen Given Sodium 117 L* Potassium 3.2 L Chloride 73 L Carbon Dioxide 36 H Anion Gap 8.0 BUN 13 Creatinine 0.76 Est Cr Clr Drug Dosing 67.4 Est GFR ( Amer) 90.2 Est GFR (Non-Af Amer) 77.8 BUN/Creatinine Ratio 16.5 Glucose 152 H POC Glucose 180 H Estimat Average Glucose Hemoglobin A1c Osmolality Calcium 8.9 Phosphorus Magnesium Urine Color Urine Appearance Urine pH Ur Specific [place] Urine Protein Urine Glucose (UA) Urine Ketones Urine Blood Urine Nitrite Urine Bilirubin Urine Urobilinogen Ur Leukocyte Esterase Urine WBC (Auto) Urine RBC (Auto) U Hyaline Cast (Auto) U Epithel Cells (Auto) Urine Bacteria (Auto) Urine Osmolality Ur Random Sodium Nasal Screen MRSA (PCR) Negative COVID-19 Eval Order SARS-CoV-2 (PCR) 02/09/21 02/09/21 02/10/21 20:23 23:04 03:34 WBC 8.43 RBC 4.14 L Hgb 9.1 L Hct 28.6 L MCV 69.1 L MCH 22.0 L MCHC 31.8 L RDW Std Deviation 37.9 RDW Coeff of Zen 15.1 H Plt Count 305 MPV 9.8 ABG pH ABG pCO2 ABG pO2 ABG HCO3 ABG O2 Saturation ABG Base Excess [place] Test Barometric Pressure Oxygen Given Sodium 117 L* Potassium 2.7 L D Chloride 73 L Carbon Dioxide 36 H Anion Gap 8.0 BUN 12 Creatinine 0.71 Est Cr Clr Drug Dosing 72.1 Est GFR ( Amer) 97.9 Est GFR (Non-Af Amer) 84.5 BUN/Creatinine Ratio 16.3 Glucose 153 H POC Glucose 169 H Estimat Average Glucose Hemoglobin A1c Osmolality Calcium 8.8 Phosphorus Magnesium Urine Color Urine Appearance Urine pH Ur Specific [place] Urine Protein Urine Glucose (UA) Urine Ketones Urine Blood Urine Nitrite Urine Bilirubin Urine Urobilinogen Ur Leukocyte Esterase Urine WBC (Auto) Urine RBC (Auto) U Hyaline Cast (Auto) U Epithel Cells (Auto) Urine Bacteria (Auto) Urine Osmolality Ur Random Sodium Nasal Screen MRSA (PCR) COVID-19 Eval Order SARS-CoV-2 (PCR) 02/10/21 02/10/21 02/10/21 03:34 03:34 07:14 WBC RBC Hgb Hct MCV MCH MCHC RDW Std Deviation RDW Coeff of Zen Plt Count MPV ABG pH ABG pCO2 ABG pO2 ABG HCO3 ABG O2 Saturation ABG Base Excess [place] Test Barometric Pressure Oxygen Given Sodium 119 L* Potassium 2.7 L Chloride 79 L Carbon Dioxide 34 H Anion Gap 5.0 BUN 12 Creatinine 0.66 Est Cr Clr Drug Dosing 77.6 Est GFR ( Amer) 101.6 Est GFR (Non-Af Amer) 87.6 BUN/Creatinine Ratio 17.9 Glucose 137 H POC Glucose 170 H Estimat Average Glucose 169 Hemoglobin A1c 7.5 H Osmolality Calcium 8.6 Phosphorus 2.7 Magnesium 2.1 Urine Color Urine Appearance Urine pH Ur Specific [place] Urine Protein Urine Glucose (UA) Urine Ketones Urine Blood Urine Nitrite Urine Bilirubin Urine Urobilinogen Ur Leukocyte Esterase Urine WBC (Auto) Urine RBC (Auto) U Hyaline Cast (Auto) U Epithel Cells (Auto) Urine Bacteria (Auto) Urine Osmolality Ur Random Sodium Nasal Screen MRSA (PCR) COVID-19 Eval Order SARS-CoV-2 (PCR) 02/10/21 08:14 WBC RBC Hgb Hct MCV MCH MCHC RDW Std Deviation RDW Coeff of Zen Plt Count MPV ABG pH ABG pCO2 ABG pO2 ABG HCO3 ABG O2 Saturation ABG Base Excess [place] Test Barometric Pressure Oxygen Given Sodium 118 L* Potassium 3.1 L Chloride 80 L Carbon Dioxide 29 Anion Gap 8.0 BUN 11 Creatinine 0.70 Est Cr Clr Drug Dosing 73.2 Est GFR ( Amer) 99.6 Est GFR (Non-Af Amer) 86.0 BUN/Creatinine Ratio 15.1 Glucose 180 H POC Glucose Estimat Average Glucose Hemoglobin A1c Osmolality Calcium 8.2 L Phosphorus Magnesium Urine Color Urine Appearance Urine pH Ur Specific [place] Urine Protein Urine Glucose (UA) Urine Ketones Urine Blood Urine Nitrite Urine Bilirubin Urine Urobilinogen Ur Leukocyte Esterase Urine WBC (Auto) Urine RBC (Auto) U Hyaline Cast (Auto) U Epithel Cells (Auto) Urine Bacteria (Auto) Urine Osmolality Ur Random Sodium Nasal Screen MRSA (PCR) COVID-19 Eval Order SARS-CoV-2 (PCR) PG Care Time/CCT Total # of Minutes Spent Total Time Spent with Patient: Total time spent is greater than 50% in coordination of care (as documented) at patient's floor/unit and/or counseling patient: Coding Level of Care Code 90878 Subseq Hosp Care Lvl 3 Diagnoses Hyponatremia E87.1 Hypokalemia E87.6 Metabolic alkalosis E87.3
--- NOTE | 2021-02-10 12:21 | XCELERA ---
[id number]
--- NOTE | 2021-02-10 13:18 | Electrocardiogram Report ---
Test Reason : Blood Pressure : / mmHG Vent. Rate : 073 BPM Atrial Rate : 073 BPM P-R Int : 120 ms QRS Dur : 078 ms QT Int : 444 ms P-R-T Axes : 074 068 080 degrees QTc Int : 489 ms Poor data quality, interpretation may be adversely affected Sinus rhythm with Premature atrial complexes Nonspecific ST abnormality Abnormal ECG When compared with ECG of 25-NOV-2019 00:19, Premature atrial complexes are now Present Confirmed by Kobe Aguilar ([id number]) on 02/10/2021 1:17:59 PM Referred By: [facility] Confirmed By:Ashish Aguilar
[2021-02-10 15:55] LABS: Albumin Level 3.6 gm/dl (3.4-5.0); BUN Creatinine Ratio 18.4 (10-20); Calcium 8.8 mg/dl (8.5-10.1); Creatinine Clr Calc Pharmacy 81.3 ml/min; Est GFR (African American) 103.1 ml/min; Phosphorus 2.4 mg/dl (2.5-4.9); Potassium 3.6 mmol/L (3.5-5.1)
[2021-02-10] MEDS ORDERED: POTASSIUM PHOS 3 MMOL/1 ML INFUSION IV STA (17:28)
[2021-02-10] MEDS ORDERED: POTASSIUM PHOSPHATE 15 MMOL in SODIUM CHLORIDE 0.9% 250 ML IV ONE (18:00)
--- NOTE | 2021-02-10 19:42 | Hospitalist Progress Note ---
Date of Service February 10, 2021 Assessment & Plan (1) Metabolic alkalosis: Plan: pt has a significant metabolic alkalosis secondary to manolo conley in the face of her typically compensated respiratory acidosis, making it difficult to compensate, will be given acetazolamide to help reduce serum bicarbinate levels given Ph is > 7.55 Patient continues to be stable her serum bicarbonate is reduced after acetazolamide. (2) Hyponatremia: Plan: Patient has severe hyponatremia her only symptoms are fatigue patient sodium has improved. Nephrology has given oral sodium chloride 1 g p.o. (3) Hypokalemia: Plan: Patient's hypokalemia replete at this time she is receive significant potassium replacement we will continue to follow (4) Chronic respiratory failure with hypoxia, on home O2 therapy: Plan: Patient suffers from COPD secondary to tobacco use she typically is on 3 L of oxygen at home with [address] Collins started Umeclidinium [place] 1 puffs (0.1429 INHALER) she remains on her beta agonist steroid inhaler (5) COPD (chronic obstructive pulmonary disease): Plan: Patient will continue on her inhaled medications at this time, she typically is on fluticasone Vilanterol, addition of Umeclidinium she will be offered duo nebs as needed if need be Patient is in a metabolic alkalosis at this point in time Dr. Carbajal saw the patient was ordered acetazolamide, (6) Lower extremity edema: Plan: Echocardiogram does not support significant cor pulmonale for lower extremity edema at this time (7) DVT prophylaxis: Plan: (Abuse for DVT prevention Admission and Anticipated Discharge Date Admission Date: February 09, 2021 Subjective Patient does not feel much different overnight her numbers are improving. She is not having no shortness of breath. She did not have significant issues with restless legs or tremor despite cessation of many of her medications that were targeted treating this. Nephrology is pleased with her improvement although being cautiously optimistic with her hyponatremia. Review of Systems Review of Systems: Mild distress and moderate fatigue no headache, no visual changes no speech or swallowing issues no chest pain, pressure or palpitations Baseline shortness of breath baseline sputum production with no change in color quantity or consistency, cough or wheezes no abdominal pain, nausea or vomiting, diarrhea or constipation no dysuria, hematuria or frequency Improving hip pain bilateral lower extremity swelling to knees no back pain, CVA tenderness or radicular pain no bruising, bleeding or rashes no focal signs of weakness or numbness or altered sensation no complaints of anxiety or depression.. Physical Exam Physical Exam: The patient appeared well nourished and normally developed. Vital signs as documented. Head exam is normocephalic atraumatic Neck is without JVD, thyromegaly, or carotid bruits. Lungs are clear to auscultation, no focal loss of breath sounds Cardiac exam, Rhythm is regular.. No murmurs, rubs or gallops. Abdominal exam reveals normal bowel sounds, soft non tender, no masses Extremities are trace to 1+ bilaterally lower extremity edema, both pedal pulses are present Neurologic exam is alert and oriented, he is of some clinical manifestations of parkinsonism. She does have some resting tremor but no pill-rolling tremor seems to extinguish when attention is paid to it Psychologically is without concerns for anxiety or depression Results & Data Results & Data ([facility]) Vital Signs (Past 12 Hours) Vital Signs Temp Pulse Pulse Resp BP Pulse Ox 02/10/21 19:08 98.2 F 93 H 19 111/79 97 02/10/21 15:49 98.6 F 78 20 124/73 98 02/10/21 12:00 98.2 F 87 18 119/59 L 98 02/10/21 08:00 98.1 F 87 88 18 102/63 99 PG Care Time/CCT Total # of Minutes Spent Total Time Spent with Patient: Total time spent is greater than 50% in coordination of care (as documented) at patient's floor/unit and/or counseling patient: Coding Level of Care Code 11815 Subseq Hosp Care Lvl 3 Diagnoses Metabolic alkalosis E87.3 Hyponatremia E87.1 Hypokalemia E87.6 Chronic respiratory failure with hypoxia, on home O2 therapy J96.11; Z99.81 COPD (chronic obstructive pulmonary disease) J44.9 COPD type: unspecified COPD Lower extremity edema R60.0 DVT prophylaxis Z29.9 (1) COPD (chronic obstructive pulmonary disease) COPD type: unspecified COPD Qualified Code(s): J44.9 - Chronic obstructive pulmonary disease, unspecified
[2021-02-10] MEDS: ENOXAPARIN INJ 40 MG/0.4 ML SYR SQ SCH (21:04)
[2021-02-10] MEDS: LATANOPROST 0.005% OP SOLN 2.5 ML BTL OP SCH (21:05)
[2021-02-10] MEDS: traZODone HCL 50 MG TAB PO SCH (21:12)
[2021-02-11] MEDS: INSULIN ASPART 100 UNITS/ML 3 ML PEN SC SCH ×4 (07:53→20:59)
[2021-02-11] MEDS: MULTIVITAMIN TAB PO SCH (08:02)
[2021-02-11] MEDS: POTASSIUM CHLORIDE CRTAB 20 MEQ TABCR PO SCH (08:02)
[2021-02-11] MEDS: acetaZOLAMIDE 250 MG TAB PO SCH (08:02)
[2021-02-11] MEDS: METOPROLOL TARTRATE 25 MG TAB PO SCH ×2 (08:03→20:45)
[2021-02-11] MEDS: UMECLIDINIUM BROMIDE 62.5MCG/BLISTER 7 PUFFS/INHALER INH SCH (08:04)
[2021-02-11] MEDS: FLUTICASONE/VILANTEROL 200/25MCG 14 PUFFS/INHALER INH SCH (08:04)
[2021-02-11 08:32] LABS: Hematocrit (blood only) 30.2 % (37-47); Hemoglobin 9.2 g/dL (12.0-16.0); Mean Corpuscular Hgb Conc 30.5 g/dL (32-36); Mean Corpuscular Volume 72.2 fL (80-100); Mean Platelet Volume 10.4 fL (7.4-10.4); Platelet Count 330 K/uL (130-400); RDW Coefficient of Variation 15.8 % (11.5-14.5); RDW Standard Deviation 41.2 fL (36.4-46.3); Red Blood Count 4.18 M/uL (4.2-5.4); White Blood Count 4.98 K/uL (4.8-10.8)
[2021-02-11 09:15] LABS: BUN Creatinine Ratio 14.1 (10-20); Calcium 9.1 mg/dl (8.5-10.1); Creatinine Clr Calc Pharmacy 75.2 ml/min; Est GFR (African American) 101.1 ml/min; Est GFR (Non-African American) 87.2 ml/min; Magnesium 2.2 mg/dl (1.8-2.4); Potassium 3.7 mmol/L (3.5-5.1)
--- NOTE | 2021-02-11 10:35 | Pulmonology Progress Note ---
Date of Service February 11, 2021 Assessment & Plan (1) COPD (chronic obstructive pulmonary disease): Plan: Impression: 75-year-old female with advanced COPD admitted with symptomatic hyponatremia. She is improved with the addition of Incruse to her regimen. Recommendations: 1. COPD: Continue Breo and Incruse. She should be discharged on this regimen. She is not wheezing or bronchospastic currently. No indication for steroids or antibiotics at this point time. 2. Chronic hypoxemic respiratory failure: Continue supplemental oxygen titrated to keep saturations at or above 88%. 3. Management of the patient's electrolyte abnormalities and acid-base status i s deferred to nephrology and the patient's primary admitting service. Defer evaluation of her lower extremity edema to the primary service as well. Patient's respiratory status appears to be stable at this point time. Pulmonary will sign off at this point in time. I will be happy to see her back in the outpatient setting to follow her obstructive lung disease. Feel free to call us with additional questions. COPD type: unspecified COPD Qualified Code(s): J44.9 - Chronic obstructive pulmonary disease, unspecified (2) Chronic respiratory failure with hypoxia, on home O2 therapy: (3) Metabolic alkalosis: Admission and Anticipated Discharge Date Admission Date: February 09, 2021 Subjective Patient seen and examined. EMR reviewed. Patient states her breathing is better. She feels the increase is be beneficial. She is not coughing wheezing or expectorating phlegm. No chest pain or palpitations. Her respiratory status is stable. Review of Systems Review of Systems: Unchanged from prior Physical Exam Constitutional: well developed; no acute distress Eyes: no scleral abnormality and no corneal abnormality ENMT: Mouth: no oral mucosal abnormality and oral mucous membranes not dry Neck: normal visual inspection and trachea midline Respiratory: normal respiratory effort Auscultation: lungs clear to auscultation bilaterally Cardiovascular: Rate/Rhythm: regular rate Heart Sounds: normal S1 and normal S2 Extremities: + edema Musculoskeletal: Extremities: no cyanosis and no clubbing Skin: normal turgor; no lesions Neurologic: Motor/Sensory: no tremor and no asterixis Psychiatric: Orientation: alert and oriented x 3 Results & Data Results & Data ([facility]) Vital Signs (Past 12 Hours) Vital Signs Temp Pulse Pulse Resp BP Pulse Ox 02/11/21 08:18 36.5 C 90 18 105/56 L 100 02/11/21 07:30 62 02/11/21 04:10 36.8 C 68 19 99/56 L 97 02/10/21 23:30 37.0 C 70 17 108/66 100 Laboratory Results 02/11/21 07:40 02/11/21 07:40 PG Care Time/CCT Total # of Minutes Spent Total Time Spent with Patient: Total time spent is greater than 50% in coordination of care (as documented) at patient's floor/unit and/or counseling patient: Coding Level of Care Code 19999 Subseq Hosp Care Lvl 2 Diagnoses COPD (chronic obstructive pulmonary disease) J44.9 COPD type: unspecified COPD Chronic respiratory failure with hypoxia, on home O2 therapy J96.11; Z99.81 Metabolic alkalosis E87.3
--- NOTE | 2021-02-11 10:36 | Nephrology Progress Note ---
Date of Service February 11, 2021 Assessment & Plan (1) Hyponatremia: Plan: * Attributed to thiazide diuretic and poor oral solute intake * Serum sodium is improved. Will provide 2g NaCl po x1 this am * Clinically volume contracted. Continue to hold diuretics. Avoid thiazide diuretics due to hyponatremia * Daily fluid restriction 1.2 L * TTE 02/10: LVEF 60-65%. Normal LV and RV systolic function, mild dilation of IVC (2) Hypokalemia: Plan: * K and Mg have corrected. Will monitor * Will reduce KCl to 40 mEq daily (3) Metabolic alkalosis: Plan: * Related to volume contraction and diuretics. Improved following Acetazolamide administration Admission and Anticipated Discharge Date Admission Date: February 09, 2021 Subjective Ms. Plaza was seen & examined in her hospital room this morning. She reports improved strength and denies GI upset from NaCl tablet. Review of Systems Constitutional: no fever and no weakness Eyes: no problem reported Ear, Nose, Mouth, Throat: no problem reported Respiratory: no cough and no dyspnea Cardiovascular: no chest pain, no palpitations and no edema Gastrointestinal: no abdominal pain, no nausea, no vomiting and no diarrhea/loose stools Genitourinary: no dysuria and no hematuria Musculoskeletal: no back pain Integumentary: no rash Neurologic: no confusion Physical Exam Constitutional: not in distress Eyes: PERRL, conjunctivae normal, anicteric sclerae ENMT: Mouth: + dry oral mucous membranes Neck: trachea midline, no thyromegaly Respiratory: normal respiratory effort, lungs clear to auscultation Cardiovascular: RRR, no murmur, no edema Gastrointestinal (Abdomen): normal bowel sounds, soft, nontender, no hepatosplenomegaly Musculoskeletal: Extremities: no cyanosis Skin: + turgor decreased Neurologic: awake; not confused Results & Data ([facility]) Vital Signs (Past 12 Hours) Vital Signs Temp Pulse Pulse Resp BP Pulse Ox 02/11/21 08:18 36.5 C 90 18 105/56 L 100 02/11/21 07:30 62 02/11/21 04:10 36.8 C 68 19 99/56 L 97 02/10/21 23:30 37.0 C 70 17 108/66 100 Laboratory Tests 02/11/21 02/11/21 02/11/21 07:40 07:40 07:40 WBC 4.98 Hgb 9.2 L Hct 30.2 L Plt Count 330 Sodium 129 L D Potassium 3.7 Chloride 97 L Carbon Dioxide 27 BUN 10 Creatinine 0.67 Glucose 147 H Calcium 9.1 Phosphorus 3.4 D Magnesium 2.2 PG Care Time/CCT Total # of Minutes Spent Total Time Spent with Patient: Total time spent is greater than 50% in coordination of care (as documented) at patient's floor/unit and/or counseling patient: Coding Level of Care Code 47127 Subseq Hosp Care Lvl 3 Diagnoses Hyponatremia E87.1 Hypokalemia E87.6 Metabolic alkalosis E87.3
[2021-02-11] MEDS ORDERED: SODIUM CHLORIDE 1 GM TABLET PO ONE (10:44)
--- NOTE | 2021-02-11 16:04 | Hospitalist Progress Note ---
Date of Service February 11, 2021 Assessment & Plan (1) Metabolic alkalosis: Plan: pt has a significant metabolic alkalosis secondary to manolo conley in the face of her typically compensated respiratory acidosis, making it difficult to compensate, will be given acetazolamide to help reduce serum bicarbinate levels given Ph is > 7.55 Patient continues to be stable her serum bicarbonate is reduced after acetazolamide. We will stop acetazolamide and see if her bicarbonate remains in reasonable range (2) Hyponatremia: Plan: Patient has severe hyponatremia her only symptoms are fatigue patient sodium has improved. Nephrology has given oral sodium chloride 1 g p.o. no GI upset from sodium tablets sodium is improved but still below 130 (3) Hypokalemia: Plan: Patient's hypokalemia replete at this time she is replete (4) Chronic respiratory failure with hypoxia, on home O2 therapy: Plan: Patient suffers from COPD secondary to tobacco use she typically is on 3 L of oxygen at home with [address] Collins started Umeclidinium [place] 1 puffs (0.1429 INHALER) she remains on her beta agonist steroid inhaler (5) COPD (chronic obstructive pulmonary disease): Plan: Patient will continue on her inhaled medications at this time, she typically is on fluticasone Vilanterol, addition of Umeclidinium she will be offered duo nebs as needed if need be Patient is in a metabolic alkalosis at this point in time Dr. Carbajal saw the patient was ordered acetazolamide, hold this now and see what her bicarbonate does (6) Lower extremity edema: Plan: Echocardiogram does not support significant cor pulmonale for lower extremity edema at this time (7) UTI (urinary tract infection): Plan: Urinary tract infection present on admission patient has some urinary incontinence we will treat her Citrobacter with cefdinir p.o. (8) DVT prophylaxis: Plan: Enoxaparin for DVT prevention Patient is markedly deconditioned will need PT OT evaluations to determine her fitness to return back to [facility] facility Admission and Anticipated Discharge Date Admission Date: February 09, 2021 Subjective Mrs. Plaza was seen twice today once in the presence of her daughter. She still is fairly motionless she was having some mild swallowing trouble after eating lunch and she does have some resting tremor which goes away with intention. Her electrolytes have improved dramatically her lower extremity swelling is slight she is at her baseline oxygen level but she is markedly deconditioned and was found incidentally to have a urinary tract infection present on admission of Citrobacter Review of Systems Review of Systems: Mild distress and moderate fatigue no headache, no visual changes no speech or swallowing issues no chest pain, pressure or palpitations Baseline shortness of breath baseline sputum production with no change in color quantity or consistency, cough or wheezes, occasionally is post prandial coughing no abdominal pain, nausea or vomiting, diarrhea or constipation no dysuria, hematuria or frequency Improving hip pain bilateral lower extremity swelling to knees no back pain, CVA tenderness or radicular pain no bruising, bleeding or rashes no focal signs of weakness or numbness or altered sensation no complaints of anxiety or depression.. Physical Exam Physical Exam: The patient appeared well nourished and normally developed. Vital signs as documented. Head exam is normocephalic atraumatic Neck is without JVD, thyromegaly, or carotid bruits. Lungs are clear to auscultation, no focal loss of breath sounds Cardiac exam, Rhythm is regular.. No murmurs, rubs or gallops. Abdominal exam reveals normal bowel sounds, soft non tender, no masses Extremities are trace to 1+ bilaterally lower extremity edema, both pedal pulses are present Neurologic exam is alert and oriented, he is of some clinical manifestations of parkinsonism. She does have some resting tremor but no pill-rolling tremor seems to extinguish when attention is paid to it Psychologically is without concerns for anxiety or depression Results & Data Results & Data ([facility]) Vital Signs (Past 12 Hours) Vital Signs Temp Pulse Pulse Resp BP Pulse Ox 02/11/21 15:00 84 02/11/21 12:14 98.2 F 106 H 18 103/57 L 96 02/11/21 08:18 97.7 F 90 18 105/56 L 100 02/11/21 07:30 62 02/11/21 04:10 98.2 F 68 19 99/56 L 97 PG Care Time/CCT Total # of Minutes Spent Total Time Spent with Patient: Total time spent is greater than 50% in coordination of care (as documented) at patient's floor/unit and/or counseling patient: Coding Level of Care Code 90692 Subseq Hosp Care Lvl 3 Diagnoses Metabolic alkalosis E87.3 Hyponatremia E87.1 Hypokalemia E87.6 Chronic respiratory failure with hypoxia, on home O2 therapy J96.11; Z99.81 COPD (chronic obstructive pulmonary disease) J44.9 COPD type: unspecified COPD Lower extremity edema R60.0 DVT prophylaxis Z29.9 UTI (urinary tract infection) N39.0 (1) COPD (chronic obstructive pulmonary disease) COPD type: unspecified COPD Qualified Code(s): J44.9 - Chronic obstructive pulmonary disease, unspecified
[2021-02-11] MEDS: traZODone HCL 50 MG TAB PO SCH (20:44)
[2021-02-11] MEDS: ENOXAPARIN INJ 40 MG/0.4 ML SYR SQ SCH (20:45)
[2021-02-11] MEDS: LATANOPROST 0.005% OP SOLN 2.5 ML BTL OP SCH (20:46)
[2021-02-11] MEDS: CEFDINIR 300 MG CAP PO SCH (20:59)
[2021-02-12 06:37] LABS: Hemoglobin 8.6 g/dL (12.0-16.0); Mean Corpuscular Hemoglobin 21.5 pg (25-34); Mean Corpuscular Hgb Conc 29.7 g/dL (32-36); Mean Corpuscular Volume 72.5 fL (80-100); Mean Platelet Volume 10.4 fL (7.4-10.4); Platelet Count 316 K/uL (130-400); RDW Coefficient of Variation 16.4 % (11.5-14.5); RDW Standard Deviation 42.9 fL (36.4-46.3); White Blood Count 6.31 K/uL (4.8-10.8)
[2021-02-12 07:21] LABS: BUN Creatinine Ratio 22.8 (10-20); Calcium 9.1 mg/dl (8.5-10.1); Creatinine Clr Calc Pharmacy 68.1 ml/min; Est GFR (African American) 93.2 ml/min; Est GFR (Non-African American) 80.4 ml/min; Potassium 4.3 mmol/L (3.5-5.1)
[2021-02-12] MEDS: UMECLIDINIUM BROMIDE 62.5MCG/BLISTER 7 PUFFS/INHALER INH SCH (07:54)
[2021-02-12] MEDS: FLUTICASONE/VILANTEROL 200/25MCG 14 PUFFS/INHALER INH SCH (07:55)
[2021-02-12] MEDS: METOPROLOL TARTRATE 25 MG TAB PO SCH (07:56)
[2021-02-12] MEDS: CEFDINIR 300 MG CAP PO SCH ×2 (07:57→20:48)
[2021-02-12] MEDS: MULTIVITAMIN TAB PO SCH (07:59)
[2021-02-12] MEDS ORDERED: PANTOprazole 40 MG in SYRINGE 0 ML IV ONE (08:00)
[2021-02-12] MEDS ORDERED: POTASSIUM CHLORIDE CRTAB 20 MEQ TABCR PO SCH (09:00)
[2021-02-12] MEDS: INSULIN ASPART 100 UNITS/ML 3 ML PEN SC SCH ×4 (09:21→20:55)
--- NOTE | 2021-02-12 09:28 | Nephrology Progress Note ---
Date of Service February 12, 2021 Assessment & Plan (1) Hyponatremia: Plan: * Attributed to thiazide diuretic and poor oral solute intake * Corrected. Will stop NaCl supplement and recheck serum sodium in am * Continue to hold diuretics. Avoid thiazide diuretics due to hyponatremia * Daily fluid restriction 1.2 L * TTE 02/10: LVEF 60-65%. Normal LV and RV systolic function, mild dilation of IVC (2) Hypokalemia: Plan: * Corrected. Will stop KCl suplement (3) Metabolic alkalosis: Plan: * Corrected. Remains stable off Acetazolamide (4) Anemia: Plan: * Hgb trending down. Will order iron studies Admission and Anticipated Discharge Date Admission Date: February 09, 2021 Subjective Ms. Plaza was seen & examined in her hospital room this morning. She was sitting up in a chair eating breakfast. She remains weak but voiced no other medical concerns. Review of Systems Constitutional: no fever Eyes: no problem reported Ear, Nose, Mouth, Throat: no problem reported Respiratory: no cough and no dyspnea Cardiovascular: no chest pain, no palpitations and no edema Gastrointestinal: no abdominal pain, no nausea, no vomiting and no diarrhea/loose stools Genitourinary: no dysuria and no hematuria Musculoskeletal: no back pain Integumentary: no rash Neurologic: no confusion Psychiatric: no problem reported Endocrine: no problem reported Hematologic / Lymphatic: no problem reported Physical Exam Constitutional: not in distress Eyes: PERRL, conjunctivae normal, anicteric sclerae ENMT: Mouth: + dry oral mucous membranes Neck: trachea midline, no thyromegaly Respiratory: normal respiratory effort, lungs clear to auscultation Cardiovascular: RRR, no murmur, no edema Gastrointestinal (Abdomen): normal bowel sounds, soft, nontender, no hepatosplenomegaly Musculoskeletal: Extremities: no cyanosis Skin: + turgor decreased Neurologic: awake; not confused Results & Data ([place]) Vital Signs (Past 12 Hours) Vital Signs Temp Pulse Resp BP Pulse Ox 02/12/21 07:33 36.7 C 80 16 93/57 L 98 02/11/21 22:54 36.8 C 69 16 103/67 100 Laboratory Results Laboratory Tests 02/12/21 02/12/21 05:23 05:23 WBC 6.31 Hgb 8.6 L Hct 29.0 L Plt Count 316 Sodium 136 D Potassium 4.3 D Chloride 105 Carbon Dioxide 26 BUN 17 D Creatinine 0.74 Glucose 138 H PG Care Time/CCT Total # of Minutes Spent Total Time Spent with Patient: Total time spent is greater than 50% in coordination of care (as documented) at patient's floor/unit and/or counseling patient: Coding Level of Care Code 35574 Subseq Hosp Care Lvl 3 Diagnoses Hyponatremia E87.1 Hypokalemia E87.6 Metabolic alkalosis E87.3 Anemia D64.9
--- NOTE | 2021-02-12 12:43 | Hospitalist Progress Note ---
Date of Service February 12, 2021 Assessment & Plan (1) Metabolic alkalosis: Plan: pt has a significant metabolic alkalosis secondary to manolo conley in the face of her typically compensated respiratory acidosis, making it difficult to compensate, will be given acetazolamide to help reduce serum bicarbinate levels given Ph is > 7.55 Patient continues to be stable. 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 Collins started Umeclidinium [place] 1 puffs (0.1429 INHALER) she remains on her beta agonist steroid inhaler (5) COPD (chronic obstructive pulmonary disease): Plan: Patient will continue on her inhaled medications at this time, she typically is on fluticasone Vilanterol, addition of Umeclidinium she will be offered duo nebs as needed if need be (6) Lower extremity edema: Plan: Echocardiogram does not support significant cor pulmonale for lower extremity edema at this time. lower blood pressure will stop metopolol (7) UTI (urinary tract infection): Plan: Urinary tract infection present on admission patient has some urinary incontinence we will treat her Citrobacter with cefdinir p.o. (8) DVT prophylaxis: Plan: Enoxaparin for DVT prevention Patient is markedly deconditioned will need PT OT evaluations to determine her fitness to return back to [facility] facility (9) Parkinsonian features: Plan: will try 1/2 dose of sinemet 25/100 tid and see how symptoms improve Admission and Anticipated Discharge Date Admission Date: February 09, 2021 Subjective this pt has no complaints she is still bothered by her tremor and objectively she has a fairly expressionless face, is in agreement to try some sinemet for Parkinsonism, incidentally her BP is low and will stop metoprolol Review of Systems Review of Systems: Mild distress and moderate fatigue no headache, no visual changes no speech or swallowing issues no chest pain, pressure or palpitations Baseline shortness of breath baseline sputum production with no change in color quantity or consistency, cough or wheezes, occasionally is post prandial coughing no abdominal pain, nausea or vomiting, diarrhea or constipation no dysuria, hematuria or frequency Improving hip pain bilateral lower extremity swelling to knees no back pain, CVA tenderness or radicular pain no bruising, bleeding or rashes no focal signs of weakness or numbness or altered sensation no complaints of anxiety or depression.. Physical Exam Physical Exam: The patient appeared well nourished and normally developed. Vital signs as documented. Head exam is normocephalic atraumatic Neck is without JVD, thyromegaly, or carotid bruits. Lungs are clear to auscultation, no focal loss of breath sounds Cardiac exam, Rhythm is regular.. No murmurs, rubs or gallops. Abdominal exam reveals normal bowel sounds, soft non tender, no masses Extremities are trace to 1+ bilaterally lower extremity edema, both pedal pulses are present Neurologic exam is alert and oriented, he is of some clinical manifestations of parkinsonism. She does have some resting tremor but no pill-rolling tremor seems to extinguish when attention is paid to it Psychologically is without concerns for anxiety or depression Results & Data Results & Data ([facility]) Vital Signs (Past 12 Hours) Vital Signs Temp Pulse Resp BP Pulse Ox 02/12/21 07:33 98.1 F 80 16 93/57 L 98 PG Care Time/CCT Total # of Minutes Spent Total Time Spent with Patient: Total time spent is greater than 50% in coordination of care (as documented) at patient's floor/unit and/or counseling patient: Coding Level of Care Code 93092 Subseq Hosp Care Lvl 3 Diagnoses Metabolic alkalosis E87.3 Hyponatremia E87.1 Hypokalemia E87.6 Chronic respiratory failure with hypoxia, on home O2 therapy J96.11; Z99.81 COPD (chronic obstructive pulmonary disease) J44.9 COPD type: unspecified COPD Lower extremity edema R60.0 UTI (urinary tract infection) N39.0 DVT prophylaxis Z29.9 Parkinsonian features R25.9 (1) COPD (chronic obstructive pulmonary disease) COPD type: unspecified COPD Qualified Code(s): J44.9 - Chronic obstructive pulmonary disease, unspecified
[2021-02-12] MEDS: CARBIDOPA/LEVODOPA 25/100MG TAB PO SCH ×2 (16:20→20:47)
[2021-02-12] MEDS: PANTOprazole 40 MG TAB PO SCH ×2 (20:49)
[2021-02-12] MEDS: LATANOPROST 0.005% OP SOLN 2.5 ML BTL OP SCH (20:49)
[2021-02-12] MEDS: traZODone HCL 50 MG TAB PO SCH (20:53)
[2021-02-13 08:16] LABS: Hematocrit (blood only) 29.6 % (37-47); Hemoglobin 8.8 g/dL (12.0-16.0); Mean Corpuscular Hemoglobin 21.9 pg (25-34); Mean Corpuscular Hgb Conc 29.7 g/dL (32-36); Mean Corpuscular Volume 73.8 fL (80-100); Mean Platelet Volume 9.8 fL (7.4-10.4); Platelet Count 337 K/uL (130-400); RDW Coefficient of Variation 16.5 % (11.5-14.5); RDW Standard Deviation 44.3 fL (36.4-46.3); Red Blood Count 4.01 M/uL (4.2-5.4); White Blood Count 5.98 K/uL (4.8-10.8)
[2021-02-13 08:46] LABS: BUN Creatinine Ratio 19.3 (10-20); Creatinine Clr Calc Pharmacy 68.1 ml/min; Est GFR (African American) 93.2 ml/min; Est GFR (Non-African American) 80.4 ml/min
[2021-02-13 08:51] LABS: Ferritin 10.9 ng/ml (8-388)
[2021-02-13] MEDS: FLUTICASONE/VILANTEROL 200/25MCG 14 PUFFS/INHALER INH SCH (09:27)
[2021-02-13] MEDS: UMECLIDINIUM BROMIDE 62.5MCG/BLISTER 7 PUFFS/INHALER INH SCH (09:27)
[2021-02-13] MEDS: PANTOprazole 40 MG TAB PO SCH ×2 (09:28→21:03)
[2021-02-13] MEDS: CARBIDOPA/LEVODOPA 25/100MG TAB PO SCH ×3 (09:28→21:03)
[2021-02-13] MEDS: MULTIVITAMIN TAB PO SCH (09:28)
[2021-02-13] MEDS: CEFDINIR 300 MG CAP PO SCH ×2 (09:28→21:03)
[2021-02-13] MEDS: INSULIN ASPART 100 UNITS/ML 3 ML PEN SC SCH ×4 (09:29→21:06)
--- NOTE | 2021-02-13 09:55 | Nephrology Progress Note ---
Date of Service February 13, 2021 Assessment & Plan (1) Hyponatremia: Plan: * Attributed to thiazide diuretic and poor oral solute intake * Serum sodium remains acceptable off NaCl supplement * Continue to hold diuretics. Avoid thiazide diuretics due to hyponatremia * OK to liberalize oral fluid restriction to 2L/day * TTE 02/10: LVEF 60-65%. Normal LV and RV systolic function, mild dilation of IVC * No further Nephrology evaluation indicated at this time. Will sign off. Please call if further assistance is needed (2) Anemia: Plan: * Hgb trending down. Iron saturation 6% w/ ferritin 10 * Will order Venofer 200 mg IV daily x 5 doses Admission and Anticipated Discharge Date Admission Date: February 09, 2021 Subjective Ms. Plaza was seen & examined in her hospital room this morning. She was sitting up in a chair eating breakfast. She remains weak but voiced no other medical concerns. Review of Systems Constitutional: no fever Eyes: no problem reported Ear, Nose, Mouth, Throat: no problem reported Respiratory: no cough and no dyspnea Cardiovascular: no chest pain, no palpitations and no edema Gastrointestinal: no abdominal pain, no nausea, no vomiting and no d iarrhea/loose stools Genitourinary: no dysuria and no hematuria Musculoskeletal: no back pain Integumentary: no rash Neurologic: no confusion Psychiatric: no problem reported Endocrine: no problem reported Hematologic / Lymphatic: no problem reported Physical Exam Constitutional: not in distress Eyes: PERRL, conjunctivae normal, anicteric sclerae ENMT: Mouth: + dry oral mucous membranes Neck: trachea midline, no thyromegaly Respiratory: normal respiratory effort, lungs clear to auscultation Cardiovascular: RRR, no murmur, no edema Gastrointestinal (Abdomen): normal bowel sounds, soft, nontender, no hepatosplenomegaly Musculoskeletal: Extremities: no cyanosis Skin: + turgor decreased Neurologic: awake; not confused Results & Data ([facility]) Vital Signs (Past 12 Hours) Vital Signs Temp Pulse Resp BP Pulse Ox 02/13/21 06:31 36.9 C 79 16 126/78 99 Laboratory Results Laboratory Tests 02/13/21 02/13/21 08:00 08:00 WBC 5.98 Hgb 8.8 L Hct 29.6 L Plt Count 337 Sodium 138 Potassium 4.0 Chloride 108 H Carbon Dioxide 23 BUN 14 Creatinine 0.74 Glucose 126 H Calcium 9.0 Transferrin % Sat 6 L Ferritin 10.9 PG Care Time/CCT Total # of Minutes Spent Total Time Spent with Patient: Total time spent is greater than 50% in coordination of care (as documented) at patient's floor/unit and/or counseling patient: Coding Diagnoses Hyponatremia E87.1 Anemia D64.9
[2021-02-13] MEDS: IRON SUCROSE 200 MG in 0.9 % SODIUM CHLORIDE 100 ML IV SCH (10:49)
--- NOTE | 2021-02-13 16:57 | Hospitalist Progress Note ---
Date of Service February 13, 2021 Assessment & Plan (1) Metabolic alkalosis: Plan: pt has a significant metabolic alkalosis secondary to dirlevy conley in the face of her typically compensated respiratory acidosis, making it difficult to compensate, will be given acetazolamide to help reduce serum bicarbinate levels given Ph is > 7.55 Patient continues to be stable. 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 Collins started Umeclidinium [place] 1 puffs (0.1429 INHALER) she remains on her beta agonist steroid inhaler (5) COPD (chronic obstructive pulmonary disease): Plan: Patient will continue on her inhaled medications at this time, she typically is on fluticasone Vilanterol, addition of Umeclidinium she will be offered duo nebs as needed if need be (6) Lower extremity edema: Plan: Echocardiogram does not support significant cor pulmonale for lower extremity edema at this time. lower blood pressure will stop metopolol (7) UTI (urinary tract infection): Plan: Urinary tract infection present on admission patient has some urinary incontinence we will treat her Citrobacter with cefdinir p.o. (8) DVT prophylaxis: Plan: Enoxaparin for DVT prevention PT OT evaluations [facility] (9) Parkinsonian features: Plan: will try 1/2 dose of sinemet 25/100 tid and see how symptoms improve Admission and Anticipated Discharge Date Admission Date: February 09, 2021 Subjective Ms. Plaza was seen & examined in her hospital room this morning. She was sitting up in a chair eating breakfast. She remains weak but voiced no other medical concerns. Review of Systems Review of Systems: Mild distress and moderate fatigue no headache, no visual changes no speech or swallowing issues no chest pain, pressure or palpitations Baseline shortness of breath baseline sputum production with no change in color quantity or consistency, cough or wheezes, occasionally is post prandial coughing no abdominal pain, nausea or vomiting, diarrhea or constipation no dysuria, hematuria or frequency Improving hip pain bilateral lower extremity swelling to knees no back pain, CVA tenderness or radicular pain no bruising, bleeding or rashes no focal signs of weakness or numbness or altered sensation no complaints of anxiety or depression.. Physical Exam Physical Exam: The patient appeared well nourished and normally developed. Vital signs as documented. Head exam is normocephalic atraumatic Neck is without JVD, thyromegaly, or carotid bruits. Lungs are clear to auscultation, no focal loss of breath sounds Cardiac exam, Rhythm is regular.. No murmurs, rubs or gallops. Abdominal exam reveals normal bowel sounds, soft non tender, no masses Extremities are trace to 1+ bilaterally lower extremity edema, both pedal pulses are present Neurologic exam is alert and oriented, he is of some clinical manifestations of parkinsonism. She does have some resting tremor but no pill-rolling tremor seems to extinguish when attention is paid to it Psychologically is without concerns for anxiety or depression Results & Data Results & Data ([facility]) Vital Signs (Past 12 Hours) Vital Signs Temp Pulse Resp BP Pulse Ox 02/13/21 15:47 98.4 F 81 16 122/66 98 02/13/21 06:31 98.4 F 79 16 126/78 99 PG Care Time/CCT Total # of Minutes Spent Total Time Spent with Patient: Total time spent is greater than 50% in coordination of care (as documented) at patient's floor/unit and/or counseling patient: Coding Level of Care Code 45313 Subseq Hosp Care Lvl 2 Diagnoses Metabolic alkalosis E87.3 Hyponatremia E87.1 Hypokalemia E87.6 Chronic respiratory failure with hypoxia, on home O2 therapy J96.11; Z99.81 COPD (chronic obstructive pulmonary disease) J44.9 COPD type: unspecified COPD Lower extremity edema R60.0 UTI (urinary tract infection) N39.0 DVT prophylaxis Z29.9 Parkinsonian features R25.9 (1) COPD (chronic obstructive pulmonary disease) COPD type: unspecified COPD Qualified Code(s): J44.9 - Chronic obstructive pulmonary disease, unspecified
[2021-02-13] MEDS ORDERED: MELATONIN 3 MG TAB PO SCH (21:00)
[2021-02-13] MEDS: LATANOPROST 0.005% OP SOLN 2.5 ML BTL OP SCH (21:04)
[2021-02-13] MEDS: traZODone HCL 50 MG TAB PO SCH (21:11)
[2021-02-14 08:04] VITALS: BP 99/62; TEMP 97.7; O2SAT 99
[2021-02-14] MEDS: FLUTICASONE/VILANTEROL 200/25MCG 14 PUFFS/INHALER INH SCH (08:47)
[2021-02-14] MEDS: IRON SUCROSE 200 MG in 0.9 % SODIUM CHLORIDE 100 ML IV SCH (08:47)
[2021-02-14] MEDS: INSULIN ASPART 100 UNITS/ML 3 ML PEN SC SCH ×3 (08:48→18:06)
[2021-02-14] MEDS: UMECLIDINIUM BROMIDE 62.5MCG/BLISTER 7 PUFFS/INHALER INH SCH (08:48)
[2021-02-14] MEDS: PANTOprazole 40 MG TAB PO SCH (08:49)
[2021-02-14] MEDS: MULTIVITAMIN TAB PO SCH (08:49)
[2021-02-14] MEDS: CARBIDOPA/LEVODOPA 25/100MG TAB PO SCH ×2 (08:49→13:20)
[2021-02-14] MEDS: CEFDINIR 300 MG CAP PO SCH (08:49)
[2021-02-14 11:15] LABS: Hematocrit (blood only) 29.6 % (37-47); Hemoglobin 8.9 g/dL (12.0-16.0)
--- NOTE | 2021-02-14 16:24 | Discharge Summary ---
Date of Service February 14, 2021 Admission HPI Per Admitting Provider 75-year-old female who is a resident of [facility] for subacute rehab after sustaining a right hip fracture and repair November 29, 2020. Since November the patient's had progressive lower extremity swelling. She reportedly went to [facility] on DVT prevention after her hip. Patient subsequently had increasing shortness of breath and was referred to Dr. Francisco Carbajal for evaluation of his baseline COPD who typically wears 3 L of oxygen at rest and 4 L with exertion. When at Dr. Carbajal's office he noticed her outpatient laboratories had shown significant hyponatremia and hypokalemia and recommended she come to the hospital for evaluation. The patient's only complaint is severe fatigue she has a resting tremor which various medications have been tried to reduce she denies drinking excessive water she states she has had normal bowel and bladder function for her without excess of either she however does have a poor appetite and has been depressed lately. At the [facility] they did increase her antidep ressant and they have been trying various agents including ropinirole primidone and gabapentin to help tremors and restless leg. Interestingly the patient also said Covid this past August after having 1 of 2 vaccines. I personally spoke to Dr. Carbajal and Dr. Stepan Bennett regarding her hyponatremia. Dr. Ziegler print developer requests that if the patient's urine osmolality is not significantly low to give her 150 cc of 3% saline over 3 hours Admission Exam Per Admitting Provider The patient appeared well nourished and normally developed. Vital signs as documented. Head exam is normocephalic atraumatic Neck is without JVD, thyromegaly, or carotid bruits. Lungs are clear to auscultation, no focal loss of breath sounds Cardiac exam, Rhythm is regular.. No murmurs, rubs or gallops. Abdominal exam reveals normal bowel sounds, soft non tender, no masses Extremities are trace to 1+ bilaterally lower extremity edema, both pedal pulses are present Neurologic exam is alert and oriented, he is of some clinical manifestations of parkinsonism. She does have some resting tremor but no pill-rolling tremor seems to extinguish when attention is paid to it Psychologically is without concerns for anxiety or depression Principal Diagnosis Working diagnoses: 1. Electrolyte abnormalityhyponatremia, hypokalemiathought to be related to diuretic therapy 2. Metabolic alkalosislikely due to overdiuresis 3. Iron deficiency anemia 4. Chronic respiratory failure with hypoxemia and chronic O2 therapy 5. COPD 6. Pansensitive UTI Discharge Exam General: Resting comfortably in her hospital bed. NAD. Neck: No JVD. Negative hepatojugular reflex Cardiac: RRR with 1/6 TAWANDA Lungs: Speaking full sentences and comfortably on supplemental oxygen. CTA with end expiratory wheezes (baseline per patient) Abdomen: Normoactive X4. Soft and nontender in all quadrants. Extremities: No peripheral clubbing cyanosis or edema Neuro: A&O X4 cranial nerves II through XII are grossly intact no focal neuro deficits Skin: No obvious skin lesions or rashes Discharge Data Allergies Allergy/AdvReac Type Severity Reaction Status Date / Time NSAIDS (Non-Steroidal AdvReac Gastrointestinal Verified 02/09/21 10:57 Anti-Inflamma Upset Sulfa (Sulfonamide AdvReac Gastrointestinal Verified 02/09/21 10:57 Antibiotics) Upset Consultations 02/09/21 15:27 Consult Nephrology Routine Initial consult: Severe, chronic hyponatremia. Assessment suggests that Haylee may have mild symptoms including confusion, mild nausea, and poor appetite. She has a normal serum creatinine. Dysnatremia is related to diuretic use, notably the use of metolazone. This has been complicated by poor solute intake. Urine sodium is low at 15. She is intravascularly contracted and will need to be closely monitored as hypokalemia and intravascular volume are corrected. She certainly has the ability to autocorrect. Urine osmolality suggestive of decreased EAV as well as possible SIADH. Certainly multiple medications as well as underlying lung disease may contribute to SIADH. At this time, goal will be slow immediate correction of ~2-3 mmol/L. Avoid correction >0.5 mmol/L/hr. A bolus of 150 ml 3% saline is ordered to infuse over 3 hours. Metabolic profile will then be rechecked and monitored every 4 hours. Subsequent nephrology visit: Attributed to diuretics and poor oral solute intake. Appropriate improvement overnight with fluid restriction and 150 ml of hypertonic saline. Haylee continues to require a large amount of potassium replacement this AM. Prior to most recent labs, 20 mEq of potassium had been given IV. An additional 30 mEq IV and 40 mEq PO are ordered. I have ordered 1 gm of PO NaCl and a repeat metabolic profile for this afternoon. Urine osmolality will also be measured, I suspect she may start to correct since diuretics have been held and intravascular volume restored. Volume status acceptable. Continue to hold diuretics. Encourage dietary protein intake. Daily fluid restriction 1.2 L. Subsequent nephrology visit: Attributed to thiazide diuretic and poor oral solute intake Serum sodium is improved. Will provide 2g NaCl po x1 this am Clinically volume contracted. Continue to hold diuretics. Avoid thiazide diuretics due to hyponatremia Daily fluid restriction 1.2 L TTE 02/10: LVEF 60-65%. Normal LV and RV systolic function, mild dilation of IVC Subsequent nephrology visit: Attributed to thiazide diuretic and poor oral solute intake Serum sodium remains acceptable off NaCl supplement Continue to hold diuretics. Avoid thiazide diuretics due to hyponatremia OK to liberalize oral fluid restriction to 2L/day TTE 02/10: LVEF 60-65%. Normal LV and RV systolic function, mild dilation of IVC No further Nephrology evaluation indicated at this time. Will sign off. Please call if further assistance is needed 02/09/21 16:13 Consult Pulmonology Routine Recommendations: 1. COPD: Continue Breo. We will add Incruse to her regimen. She is not wheezing or bronchospastic currently. No indication for steroids or antibiotics at this point time. 2. Chronic hypoxemic respiratory failure: Continue supplemental oxygen titrated to keep saturations at or above 88%. 3. Management of the patient's electrolyte abnormalities and acid-base status is deferred to nephrology and the patient's primary admitting service. Defer evaluation of her lower extremity edema to the primary service as well. Ordered Studies Echocardiogram: EF preserved at 60 to 65%. LV systolic function normal. Right ventricular systolic pressure normal. The inferior vena cava is mildly dilated. CXR: No acute cardiopulmonary process. Emphysema noted. Urine Culture Final 02/11/21-1142 Organism 1 Citrobacter freundii Saxton Count >100,000 CFU/ml Sens Sensitivities to Follow C freundii RX M.I.C. --- --------- Cefepime S <=2 Ceftriaxone S <=1 Ciprofloxacin S <=0.25 Ertapenem S <=0.5 Gentamicin S <=4 Levofloxacin S <=0.5 Meropenem S <=1 Nitrofurantoin S <=32 Tobramycin S <=4 Trimeth/Sulfa S <=2/38 Pip/Tazo S <=16 S = SENSITIVE I = INTERMEDIATE R = RESISTANT Hospital Course (1) Metabolic alkalosis: pt had a significant metabolic alkalosis secondary to diruesis jarvis in the face of her typically compensated respiratory acidosis, making it difficult to compensate, was given acetazolamide to help reduce serum bicarbinate levels given Ph is > 7.55 Labs stabilized. (2) Hyponatremia: resolved per nephrology, thought to be secondary to Diuretic therapy (Lasix, Zaroxolyn, and HCTZ). Diuretic therapy stopped Initially corrected with hypertonic saline and salt tablets. Once corrected, salt tablets stopped and patient placed on a fluid restricted diet. Sodium level remained stable Should be followed as an outpatient and if persistently lowconsider referral back to nephrology (3) Hypokalemia: Replaced/resolved (4) Chronic respiratory failure with hypoxia, on home O2 therapy: Patient suffers from COPD secondary to tobacco use she typically is on 3 L of oxygen at home with 4 L with exertion. Per pulmonology, Advair transitioned to Breo with the addition of Incruse (5) COPD (chronic obstructive pulmonary disease): See above (6) Lower extremity edema: Echocardiogram does not support significant cor pulmonale for lower extremity edema at this time. lower blood pressure will stop metopolol (7) UTI (urinary tract infection): Urinary tract infection present on admission patient has some urinary incontinence we will treat her Citrobacter with cefdinir p.o. (8) Anemia: * Iron level lowgiven Venofer and started on oral iron supplementation * Recommend follow-up with GI for updated EGD/colonoscopy pending labs remained stable * Recommend follow-up labs to trend * Continue PPI therapy (9) Parkinsonian features: will try 1/2 dose of sinemet 25/100 tid and see how symptoms improve Can uptitrate at discretion of house physician (10) DVT prophylaxis: Enoxaparin for DVT prevention PT OT evaluations anticipate return to [facility]day * Discharge back to [facility] today * See recommendations as outlined below Total Time Total Time Spent Total Time Spent (In Minutes): 60 minutes Discharge Plan Discharge Items Patient Disposition: Transfer Group Home Fac Reason For Visit: HYPONATREMIA, HYPOKALEMIA Discharge Diagnosis: 1. Electrolyte Abnormality- resolved. Likely related to Lasix/HCZT Activity: Resume your previous activity Non-emergency contact: Primary Care Provider and Highway Construction Inspector Call non-emergency contact if: you have any medication questions and your symptoms worsen Follow-up/Referrals: [facility] [Primary Care Provider] - Diet: Other - See Diet Comment Fluids: 2000ml (8 cups) Addtl Attending Provider Instructions: - Maintain a fluid restricted diet (2L/day) - avoid diuretics for edema (lasix and Zaroxolyn stopped)-->Encourage leg elevation - started on Iron supplementation - started on Sinemet 0.5 tab TID--> uptitration as needed by house Physician - Advair changed to Breo with addition of Incruse - D/C metoprolol (not needed for BP) - recommend FU labs to trend (at discretion of house physician): CBC, BMP, Mag-->to FU on hgb and electrolytes - can consider FU with Nephrology if patient with persistent hyponatremia - Follow up with Ortho as scheduled - follow up with House Physician within 24-48 hours - Recommend Patient FU with GI in future for EGD/Colonoscopy Pending Studies at Discharge: No Stand-Alone Forms: My [facility] Skilled Items Patient informed of condition?: Yes DNR: Yes Discharge Level of Care: Skilled Communicable Disease: No Discharge Prognosis: Stable Lines: None Urinary Catheter: No Medications and DC Order Prescriptions: New cefdinir 300 mg Capsule 300 mg PO BID Qty: 8 RF: 0 Incruse Ellipta 62.5 mcg/actuation Blister With Device 1 puff inhalation DAILY Qty: 1 RF: 0 ferrous sulfate 325 mg (65 mg iron) tablet 325 mg PO BID Qty: 60 RF: 0 carbidopa-levodopa [Sinemet] 25-100 mg Tablet 0.5 tab PO TID Qty: 60 RF: 0 pantoprazole 40 mg Tablet,Delayed Release (Dr/Ec) 40 mg PO BID Qty: 60 RF: 0 Breo Ellipta 200-25 mcg/dose Blister With Device 1 puff inhalation DAILY Qty: 1 RF: 0 Continued latanoprost 0.005 % drops 1 drp ophthalmic (eye) DAILY RF: 0 magnesium hydroxide [Milk of Magnesia] 400 mg/5 mL suspension 5 ml PO DAILY PRN (Reason: Constipation) RF: 0 oxycodone 5 mg capsule 10 mg PO Q6H PRN (Reason: Pain (Scale Score 7-10)) RF: 0 primidone 50 mg tablet 50 mg PO QAM PRN (Reason: Tremor(S)) RF: 0 ropinirole 0.25 mg tablet 0.25 mg PO HS RF: 0 trazodone 50 mg tablet 75 mg PO DAILY RF: 0 cholecalciferol (vitamin D3) 125 mcg (5,000 unit) capsule 5,000 unit PO QAM RF: 0 ondansetron HCl [Zofran] 4 mg tablet 4 mg PO Q4H PRN (Reason: Nausea And Vomiting) RF: 0 atorvastatin 10 mg tablet 10 mg PO HS RF: 0 metformin 500 mg tablet 500 mg PO BID RF: 0 citalopram 40 mg tablet 40 mg PO QAM RF: 0 multivitamin [Multiple Vitamins] Tablet 1 tab PO QAM RF: 0 alprazolam 0.5 mg Tablet 0.5 mg PO Q12 RF: 0 cyanocobalamin (vitamin B-12) [Vitamin B-12] 1,000 mcg Tablet 1,000 mcg PO QAM RF: 0 calcium carbonate-vitamin D3 [Oyster Shell Calcium-Vit D3] 500 mg(1,250mg) - 200 unit Tablet 1 tab PO BID RF: 0 acetaminophen [Tylenol Extra Strength] 500 mg Tablet 1,000 mg PO TID PRN (Reason: Pain) RF: 0 oxycodone 5 mg capsule 5 mg PO Q8H PRN (Reason: Pain (Scale Score 4-6)) RF: 0 aripiprazole 10 mg tablet 10 mg PO QAM RF: 0 Discontinued metolazone 2.5 mg tablet 2.5 mg PO QAM PRN (Reason: Edema) RF: 0 metoprolol tartrate 25 mg tablet 12.5 mg PO BID RF: 0 omeprazole 20 mg capsule,delayed release(DR/EC) 20 mg PO QAM RF: 0 potassium chloride 20 mEq packet 40 meq PO TID RF: 0 Advair HFA 115-21 mcg/actuation HFA aerosol inhaler 2 puff INHALATION BID RF: 0 furosemide 20 mg tablet 40 mg PO BID PRN (Reason: Edema) RF: 0 Discharge Orders: Discharge Order (Routine); Ordered 02/14/21 Ordered By: Jahaira Shaikh/Other Patient Handouts: A1C, Managing Type 2 Diabetes Admission Data Admit Date/Time: 02/09/21 12:33 Attending Provider: Jean Ramirez Admit Provider: James Spivey Primary Care Provider: [facility] Other Providers: Stepan Hardwick ; Francisco Carbajal Other Interventions: Discharge Summary Assessment (RN) Last Done: 02/14/21 18:08 Supervising Physician Co-Signing Physician Notes Patient seen and examined on the day of discharge. I agree with the discharge summary by Jahaira PERRY. I have reviewed the chart including labs, imaging and plans for discharge. patient doing well, she is alert, Na stable discussed plans for discharge with her and her daughter at the bedside - Hyponatremia: due to diuretic use with Lasix, Zaroxolyn, HCTZ corrected with fluid restriction, NaCl tablets continue to follow Na levels at rehab Coding Level of Care Code D/C DAY MANAGEMENT >30 MINS Diagnoses Metabolic alkalosis E87.3 Hyponatremia E87.1 Hypokalemia E87.6 Chronic respiratory failure with hypoxia, on home O2 therapy J96.11; Z99.81 COPD (chronic obstructive pulmonary disease) J44.9 COPD type: unspecified COPD Lower extremity edema R60.0 UTI (urinary tract infection) N39.0 DVT prophylaxis Z29.9 Parkinsonian features R25.9 Anemia D64.9 Time Spent (min) 60
[2021-02-14 18:09] VITALS: PULSE 70
== END 2021-02-14 18:33 | DRG 641 ==
LOC: ED 11:41 → 2E 12:33 → SUATTDRO 12:33 → 2E 19:09 → 3N 02-11 16:04

== ENCOUNTER 2025-01-18 16:46 | Inpatient (IN) ==
--- NOTE | 2025-01-18 17:10 | Emergency Department Note ---
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 Patient states on Saturday morning just over 2 days ago began to experience shortness of breath symptoms. Was started on prednisone as well as azithromycin at the facility. Oxygen level has been somewhat variable and low at times. DuoNebs have been used by her report. Still feeling short of breath and generally weak. No syncope. Denies significant chest discomfort at this time or abdominal symptoms of nausea vomiting or diarrhea. Some sinus congestion reported. States she has not had breathing this bad in some time. While she does feel weak she denies confusion to me. PAST MEDICAL HISTORY: As noted above MEDICATIONS: Reviewed her medications include chronic oxygen SOCIAL HISTORY: Resides at [facility], former smoker PHYSICAL EXAM: GENERAL: alert and oriented fatigued appearance on stretcher with pursed lip breathing. Head: normocephalic and atraumatic EYES: No injection, discharge or icterus. NECK: Trachea midline. ENT: Mucous membranes pink and moist. LUNGS: Airway patent. No retractions. Breath sounds wheezing with pursed lip breathing noted mild tachypnea. HEART: Regular tachycardic rate and rhythm. No chest wall tenderness ABDOMEN: Soft and non-tender, without guarding or rebound. SKIN: Acyanotic, warm, dry, without rashes EXTREMITIES: Without tenderness or deformity with trace bilateral lower extremity edema. NEUROLOGICAL: No focal deficits. No aphasia. No facial droop or slurred speech. EK bpm sinus tachycardia. No PVC. No acute ST segment elevation or depression with some respiratory baseline artifact. QTc 485. CONTINUOUS CARDIAC MONITORING: was ordered and showed a heart rate of 90s-110s bpm in sinus tachycardia/normal sinus rhythm Patient's laboratory studies and imaging reviewed. Differential includes Reactive airway disease, pneumonia, pneumothorax, COPD, CHF, infections, cardiac ischemia, pulmonary embolism, musculoskeletal, gastrointestinal, as well as other pathologies. IMPRESSION/MEDICAL DECISION MAKING: Patient was observed breathing amount tachypnea here. Chronically on oxygen but evidently with some increasing requirements. Has been on prednisone as well as azithromycin for couple days. Chronic mild bilateral leg swelling but no significant chest pain. Given her work of breathing and wheeze given DuoNeb, additional steroid, and started on BiPAP at this time. EKG troponin are sent. Afebrile. No GI symptoms reported or urinary symptoms. Will complete a CTA to exclude occult pneumonia as well as PE. Blood work with new leukocytosis of 15 possibly infectious versus related to her steroid usage. Stable mild anemia. No VBG abnormality or hypercarbia. Mild hyponatremia 128 is noted with normal renal function and some pseudo component related to the elevated blood sugar in the mid 300s. No transaminitis. Lactate normal at 1.9. Calcitonin not elevated 0.11. Troponin normal. Chest x-ray questions possible bilateral pneumonia and CT angiogram of the chest without obvious evidence of pulmonary embolism but what appears to be some areas of multifocal pneumonia. Covered with a the dose of cefepime given her current stay at [place] [facility]. Patient has been receiving azithromycin already for atypical coverage. Will bring in for further care and is more comfortable on the BiPAP. Later transitioned back to nasal cannula the patient was agreeable with this plan. Hospitalist team was contacted. DIAGNOSIS: Acute on chronic hypoxic respiratory failure, multifocal pneumonia DISPOSITION: Hospitalist will evaluate Patient was agreeable with this plan. Critical Care I have personally spent 33 minutes of critical care time in the direct management of this patient. This includes bedside care, interpretation of diagnostic studies, and testing, discussion with consultants, patient, and family members, and other required patient management activities. These 33 minutes is in excess of all separately billable procedures. Past Med/Surg History Problem List (Updated 01/18/25 @ 22:37 by Mayo Randall M.D.) Multifocal pneumonia (Acute) Acute and chronic respiratory failure (Acute) Acute UTI (urinary tract infection) (Acute) Abnormal vaginal bleeding (Acute) Dyslipidemia Tendinopathy of rotator cuff Type 2 diabetes mellitus A1C 8.4% 08/03/2024 Cervical radicular pain Triceps strain Gross hematuria PMB (postmenopausal bleeding) COPD (chronic obstructive pulmonary disease) (Acute) Chronic respiratory failure with hypoxia, on home O2 therapy (Acute) Family history non-contributory Hyponatremia Tremor RLS (restless legs syndrome) UTI (urinary tract infection) Anemia Parkinsonian features Encounter for pre-operative examination Pulmonary nodule seen on imaging study Irritable bowel syndrome with diarrhea Hemorrhoids History of recurrent UTIs Parkinson's disease Anxiety Mixed stress and urge urinary incontinence Dyspnea Overactive bladder Recurrent UTI Antibiotic-resistant bacterial infection Medical History DVT prophylaxis Metabolic alkalosis Benzodiazepine dependence Urinary incontinence Vitamin D deficiency Osteoporosis Diverticulosis Rosacea Urethral prolapse Nodule of right lung Glaucoma Sensorineural deafness Breast CA Hypertension Hyperlipidemia Insomnia IBS (irritable bowel syndrome) Hypokalemia Lower extremity edema Surgical History H/O colonoscopy History of esophagogastroduodenoscopy (EGD) Hx of tubal ligation History of tonsillectomy H/O right cataract extraction Status post myringotomy with insertion of tube H/O right mastectomy Family History Other Cancer Colonic polyp Coronary heart disease Hypertension IBS (irritable bowel syndrome) Stroke Social History Smoking Status: Former smoker Tobacco Type: Cigarettes Age Started Using Tobacco: 18; Age Quit Using Tobacco: 69; packs per day: 1.5; Second Hand Exposure: No; Do You Dip or Chew Tobacco: No; Hx Alcohol Use: No Hx Substance Use: No Preferred Language: Venezuelan Communication Ability: Effective Bankruptcy Attorney Required: No Beliefs That Will Affect Care: None Current Living Situation: Care Home Current Living Situation Comment: [facility] Feels Safe at Home: Yes Assistive Devices: Denture - Upper, Oxygen - Continuous and Walker Allergies Allergies Allergy/AdvReac Type Severity Reaction Status Date / Time NSAIDS (Non-Steroidal AdvReac Intermediate Gastrointestinal Verified 01/18/25 18:59 Anti-Inflamma Upset Sulfa (Sulfonamide AdvReac Intermediate Gastrointestinal Verified 01/18/25 18:59 Antibiotics) Upset Home Meds Home Medications Medication Instructions Recorded Confirmed atorvastatin 10 mg tablet 10 mg PO HS 11/24/19 01/18/25 acetaminophen 500 mg tablet 1,000 mg PO Q8H PRN Fever Or Pain 02/09/21 01/18/25 (Tylenol Extra Strength) latanoprost 0.005 % eye drops 1 drp OPB DAILY 02/09/21 01/18/25 ascorbic acid (vitamin C) 1,000 mg 1 g PO DAILY 04/20/22 01/18/25 capsule tramadol 50 mg tablet 50 mg PO Q4H PRN Pain 09/20/22 01/18/25 docusate sodium 100 mg capsule 200 mg PO BID 03/12/23 01/18/25 triamcinolone acetonide 0.1 % 1 applic topical Q8H PRN Painful 03/12/23 01/18/25 topical cream Hemorrhoids arformoterol 15 mcg/2 mL solution 2 ml inhalation Q12H 10/16/23 01/18/25 for nebulization camphor 4.7 %-eucalyptus oil 1.2 1 applic topical Q8 PRN Congestion 10/16/23 01/18/25 %-menthol 2.6 % topical ointment (Vicks Vaporub) hydroxyzine HCl 25 mg tablet 25 mg PO Q8H PRN Anxiety 10/16/23 01/18/25 hydroxyzine pamoate 50 mg capsule 50 mg PO HS 10/16/23 01/18/25 ipratropium 0.5 mg-albuterol 3 mg 3 ml inhalation Q2H PRN 10/16/23 01/18/25 (2.5 mg base)/3 mL nebulization sob/wheezing soln loperamide 2 mg capsule 2 mg PO DIRECTED PRN loose stool 10/16/23 01/18/25 (Anti-Diarrheal (loperamide)) sodium chloride 0.65 % nasal spray 2 spray intranasal Q2H PRN dry 10/16/23 01/18/25 aerosol (Saline Nasal) nares sodium phosphates 19 gram-7 118 ml WI DAILY PRN Constipation 10/16/23 01/18/25 gram/118 mL enema (Fleet Enema) budesonide 0.5 mg/2 mL suspension 0.5 mg inhalation AMPM 11/02/23 01/18/25 for nebulization ondansetron HCl 4 mg tablet 4 mg PO Q4 PRN nausea/vomiting 11/02/23 01/18/25 ramelteon 8 mg tablet 8 mg PO HS 11/02/23 01/18/25 mirtazapine 7.5 mg tablet 7.5 mg PO HS 06/24/24 01/18/25 desvenlafaxine succinate 25 mg 50 mg PO QAM 08/04/24 01/18/25 tablet,extended release 24 hr (Pristiq) insulin glargine 100 unit/mL (3 50 unit subcut HS 08/04/24 01/18/25 mL) subcutaneous pen (Lantus Solostar U-100 Insulin) menthol 4 % topical gel (Biofreeze 1 applic topical Q4H PRN Muscle 08/04/24 01/18/25 (menthol)) Pain methenamine hippurate 1 gram tablet 1 g PO Q12H 08/04/24 01/18/25 spironolactone 50 mg tablet 50 mg PO BIDM 08/04/24 01/18/25 carboxymethylcellulose sodium 1 % 1 drp ophthalmic (eye) DIRECTED 08/11/24 01/18/25 eye drops (Artificial Tears PRN Dry Eyes (carboxymethylcellulose)) lamotrigine 150 mg tablet 150 mg PO DAILY 10/14/24 01/18/25 quetiapine 25 mg tablet 25 mg PO BID 10/14/24 01/18/25 pantoprazole 40 mg tablet,delayed 40 mg PO DAILYBB 12/22/24 01/18/25 release (Protonix) revefenacin 175 mcg/3 mL solution 175 mcg inhalation DAILY 12/22/24 01/18/25 for nebulization vibegron 75 mg tablet (Gemtesa) 75 mg PO DAILY 12/22/24 01/18/25 aluminum-mag hydroxide-simethicone 60 ml PO Q6H PRN Dyspepsia 01/08/25 01/18/25 200 mg-200 mg-20 mg/5 mL oral susp (Yvette-Lanta) calcium carbonate 500 mg PO DAILY 01/08/25 01/18/25 carbidopa 25 mg-levodopa 100 mg 1.5 tab PO QID 01/08/25 01/18/25 tablet (Sinemet) carboxymethylcellulose sodium 1 % 1 drp OPB QID 01/08/25 01/18/25 eye drops (Artificial Tears (carboxymethylcellulose)) denosumab 60 mg/mL subcutaneous 60 mg subcut .[id number] 01/08/25 01/18/25 syringe (Prolia) eluxadoline 100 mg tablet (Viberzi) 100 mg PO BID IBS-D 01/08/25 01/18/25 ergocalciferol (vitamin D2) 1,250 1,250 mcg PO WK 01/08/25 01/18/25 mcg (50,000 unit) capsule (Vitamin D2) hydrocortisone 1 % topical cream 1 applic topical Q6H PRN 01/08/25 01/18/25 (Preparation H Hydrocortisone) Hemorrhoids insulin lispro 100 unit/mL 1 sliding scale dose subcut UD 01/08/25 01/18/25 subcutaneous solution (Humalog HYPERGYLCEMIA U-100 Insulin) insulin lispro 100 unit/mL 5 unit subcut TIDM 01/08/25 01/18/25 subcutaneous solution (Humalog U-100 Insulin) menthol 7.5 mg lozenges (Eleanor 7.5 mg PO Q1H PRN COUGH/SORE THROAT 01/08/25 01/18/25 Cough Drops) pimavanserin 34 mg capsule 34 mg PO DAILY 01/08/25 01/18/25 (Nuplazid) sodium chloride-aloe vera nasal 1 applic topical TID 01/08/25 01/18/25 gel ([place] Saline nasal gel) Afrin (oxymetazoline) 2 spray intranasal Q12 PRN 01/18/25 01/18/25 Congestion Milk of Magnesia 30 ml PO DAILY PRN Constipation 01/18/25 01/18/25 azithromycin 250 mg tablet 250 mg PO DAILY 01/18/25 01/18/25 bisacodyl 10 mg rectal suppository 10 mg WI DAILY PRN Constipation 01/18/25 01/18/25 (Dulcolax (bisacodyl)) camphor 4.7 %-eucalyptus oil 1.2 1 applic topical Q8H PRN Congestion 01/18/25 01/18/25 %-menthol 2.6 % topical ointment (Vicks Vaporub) carbidopa ER 50 mg-levodopa 200 mg 1 tab PO DAILY 01/18/25 01/18/25 tablet,extended release guaifenesin 100 mg/5 mL oral 200 mg PO QID 01/18/25 01/18/25 liquid (Yvette-Tussin) ipratropium 0.5 mg-albuterol 3 mg 3 ml inhalation QID 01/18/25 01/18/25 (2.5 mg base)/3 mL nebulization soln prednisone 50 mg PO .FOR 2 DAYS 01/18/25 01/18/25 Previous Rx's Medication Instructions Recorded Oxygen Home #1 ea 04/06/21 Oxygen Home #1 ea 06/28/21 cranberry 500 mg capsule 500 mg PO DAILY #30 caps 10/05/21 ropinirole 1 mg tablet 1 mg PO HS 30 days #30 tabs 08/28/23 ensifentrine 3 mg/2.5 mL 3 mg (2.5 mL) inhalation BID #150 06/24/24 suspension for nebulization mL (Ohtuvayre) Results & Data (ED) Vital Signs Vital Signs - 24 hr 01/18/25 16:49 01/18/25 16:49 01/18/25 16:49 Temperature 37.4 C Temperature Source Oral Pulse Rate 108 H Pulse Rate [Right Finger] Pulse Rate from SpO2 Sensor Respiratory Rate 20 Respiratory Effort / Characteristics Spontaneous Labored Non-Labored Spontaneous Respiratory Depth Normal Normal Respiratory Pattern Regular Tachypnea Regular Blood Pressure 127/91 Blood Pressure [Left Arm] Blood Pressure Mean 103 Blood Pressure Mean [Left Arm] Blood Pressure Position Semi-fowlers Blood Pressure Position [Left Arm] Pulse Oximetry 96 Oxygen Delivery Method Nasal Cannula Room Air Oxygen Flow Rate 6 Fraction of Inspired Oxygen SaO2/FiO2 Ratio Sepsis Recent Fever Within 48 Hours No Sepsis New/Unexplained Change in Mental Status No Sepsis Action Taken by Nursing No Action Required 01/18/25 17:00 01/18/25 17:00 01/18/25 17:02 Temperature Temperature Source Pulse Rate 106 H 109 H Pulse Rate [Right Finger] Pulse Rate from SpO2 Sensor 107 H Respiratory Rate 21 20 Respiratory Effort / Characteristics Spontaneous Respiratory Depth Normal Respiratory Pattern Blood Pressure 147/87 H Blood Pressure [Left Arm] Blood Pressure Mean 101 Blood Pressure Mean [Left Arm] Blood Pressure Position Blood Pressure Position [Left Arm] Pulse Oximetry 93 95 Oxygen Delivery Method Oxygen Flow Rate Fraction of Inspired Oxygen 40 SaO2/FiO2 Ratio Sepsis Recent Fever Within 48 Hours Sepsis New/Unexplained Change in Mental Status Sepsis Action Taken by Nursing 01/18/25 17:15 01/18/25 17:17 01/18/25 17:27 Temperature Temperature Source Pulse Rate 108 H Pulse Rate [Right Finger] 109 H 107 H Pulse Rate from SpO2 Sensor Respiratory Rate 20 20 Respiratory Effort / Characteristics Non-Labored Spontaneous Respiratory Depth Respiratory Pattern Blood Pressure Blood Pressure [Left Arm] 149/89 H Blood Pressure Mean Blood Pressure Mean [Left Arm] 109 Blood Pressure Position Blood Pressure Position [Left Arm] Semi-fowlers Pulse Oximetry 96 98 Oxygen Delivery Method BiPAP BiPAP Oxygen Flow Rate Fraction of Inspired Oxygen 40 40 SaO2/FiO2 Ratio 245 Sepsis Recent Fever Within 48 Hours Sepsis New/Unexplained Change in Mental Status Sepsis Action Taken by Nursing 01/18/25 17:27 01/18/25 17:27 01/18/25 17:28 Temperature Temperature Source Pulse Rate 107 H 106 H Pulse Rate [Right Finger] Pulse Rate from SpO2 Sensor 107 H Respiratory Rate 21 21 Respiratory Effort / Characteristics Respiratory Depth Respiratory Pattern Blood Pressure 149/89 H Blood Pressure [Left Arm] Blood Pressure Mean 105 Blood Pressure Mean [Left Arm] Blood Pressure Position Blood Pressure Position [Left Arm] Pulse Oximetry 97 98 Oxygen Delivery Method BiPAP Oxygen Flow Rate Fraction of Inspired Oxygen 40 40 SaO2/FiO2 Ratio 242 Sepsis Recent Fever Within 48 Hours Sepsis New/Unexplained Change in Mental Status Sepsis Action Taken by Nursing 01/18/25 17:30 01/18/25 18:00 01/18/25 18:14 Temperature Temperature Source Pulse Rate 107 H 107 H Pulse Rate [Right Finger] Pulse Rate from SpO2 Sensor 107 H 112 H Respiratory Rate 21 22 Respiratory Effort / Characteristics Spontaneous Respiratory Depth Respiratory Pattern Regular Blood Pressure Blood Pressure [Left Arm] Blood Pressure Mean Blood Pressure Mean [Left Arm] Blood Pressure Position Blood Pressure Position [Left Arm] Pulse Oximetry 97 95 95 Oxygen Delivery Method Oxygen Flow Rate Fraction of Inspired Oxygen 40 SaO2/FiO2 Ratio Sepsis Recent Fever Within 48 Hours Sepsis New/Unexplained Change in Mental Status Sepsis Action Taken by Nursing 01/18/25 19:00 Temperature Temperature Source Pulse Rate Pulse Rate [Right Finger] 108 H Pulse Rate from SpO2 Sensor Respiratory Rate 26 H Respiratory Effort / Characteristics Labored Respiratory Depth Respiratory Pattern Blood Pressure Blood Pressure [Left Arm] 153/95 H Blood Pressure Mean Blood Pressure Mean [Left Arm] 114 Blood Pressure Position Blood Pressure Position [Left Arm] Pulse Oximetry 96 Oxygen Delivery Method BiPAP Oxygen Flow Rate Fraction of Inspired Oxygen SaO2/FiO2 Ratio Sepsis Recent Fever Within 48 Hours Sepsis New/Unexplained Change in Mental Status Sepsis Action Taken by Nursing Laboratory Data 01/18/25 17:14 01/18/25 17:14 Lab Results 01/18/25 01/18/25 01/18/25 Range/Units 17:14 17:19 17:21 WBC 15.84 H (4.8-10.8) K/ul RBC 4.07 L (4.20-5.40) M/uL Hgb 11.2 L (12.0-16.0) g/dl POC Hgb 11.9 L (12.0-16.0) g/dl Hct 34.5 L (37.0-47.0) % POC Hct 35 L (37-47) % MCV 84.8 (80.0-100.0) fL MCH 27.5 (25.0-34.0) pg MCHC 32.5 (32.0-36.0) g/dL RDW Std Deviation 39.0 (36.4-46.3) fL RDW Coeff of Zen 12.7 (11.5-14.5) % Plt Count 271 (130-400) K/uL MPV 9.8 (9.4-12.4) fL Immature Gran % (Auto) 0.5 % Neut % (Auto) 95.3 % Lymph % (Auto) 2.0 % [place] % (Auto) 2.0 % Eos % (Auto) 0.1 % Baso % (Auto) 0.1 % Neut # (Auto) 15.11 H (1.40-6.50) K/uL Lymph # (Auto) 0.31 L (1.20-3.40) K/uL [place] # (Auto) 0.31 (0.11-0.59) K/uL Eos # (Auto) 0.01 (0.00-0.50) K/uL Baso # (Auto) 0.02 (0.00-0.20) K/uL Immature Gran # (Auto) 0.08 (0.01-0.20) K/uL PT 10.9 (9.0-12.0) Seconds INR 1.0 (0.9-1.1) APTT 29 (21-31) Seconds PTT Ratio 1.1 VBG pH 7.38 (7.36-7.41) VBG pCO2 49 (38-50) mmHg VBG pO2 86 mmHg VBG HCO3 29 mmol/L VBG O2 Saturation 98.7 % VBG Base Excess 3.0 mEq/L POC Sodium 128 L (135-144) mmol/L Sodium 128 L (136-145) mmol/L POC Potassium 5.0 (3.3-5.0) mmol/L Potassium 5.0 (3.5-5.1) mmol/L POC Chloride 94 L (101-112) mmol/L Chloride 92 L (98-107) mmol/L Carbon Dioxide 28 (21-32) mmol/L POC Total CO2 27 (24-31) mmol/L Anion Gap 8 (3-11) POC Anion Gap 13.0 L (16-25) mmol/L POC BUN 17 (7-18) mg/dl BUN 17 (6-23) mg/dl Creatinine 0.94 (0.6-1.2) mg/dl POC Creatinine 0.9 (0.6-1.3) mg/dl Est Cr Clr Drug Dosing 56.5 ml/min eGFR 62.50 BUN/Creatinine Ratio 18.1 (10-20) Glucose 360 H* (70-99(Fasting)) mg/dl POC Glucose (other) 368 H* (70-99) mg/dl Osmolality 284 (280-300) mOsm/kg Lactate (0.4-2.0) mmol/L Calcium 9.3 (8.6-10.3) mg/dl POC Ioniz Calcium Jonny 1.09 L (1.12-1.32) mmol/l Total Bilirubin 0.3 (0.2-1.0) mg/dl AST 7 L (13-39) U/L ALT 5 L (7-52) U/L Alkaline Phosphatase 83 (34-104) U/L Troponin I High Sens 8.9 (0-14) pg/ml B-Natriuretic Peptide 126 H (0-100) pg/ml Total Protein 7.2 (6.0-8.3) gm/dl Albumin 3.7 (3.4-5.0) gm/dl Globulin 3.5 (2.5-4.0) gm/dl Albumin/Globulin Ratio 1.1 (0.9-2) Procalcitonin 0.11 (0-0.5) ng/ml Urine Color Urine Appearance (Clear) Urine pH (4.5-7.5) Ur Specific [place] (1.000-1.030) Urine Protein (Negative) Urine Glucose (UA) (Negative) Urine Ketones (Negative) Urine Blood (Negative) Urine Nitrite (Negative) Urine Bilirubin (Negative) Urine Urobilinogen (Negative) Ur Leukocyte Esterase (Negative) Urine WBC (Auto) (0-5) /hpf Urine RBC (Auto) (0-2) /hpf U Hyaline Cast (Auto) (0-2) /lpf U Epithel Cells (Auto) (0-2) /hpf Urine Bacteria (Auto) (None Seen) Urine Comment Nasal Screen MRSA (PCR) (Negative) Adenovirus (PCR) Not Detected (NotDetected) B. pertussis DNA (PCR) Not Detected (NotDetected) B.parapertussis DNA PCR Not Detected (NotDetected) C. pneumoniae DNA (PCR) Not Detected (NotDetected) Coronavirus OC43 (PCR) Not Detected (NotDetected) Coronavirus HKU1 (PCR) Not Detected (NotDetected) Coronavirus 229E (PCR) Not Detected (NotDetected) SARS-CoV-2 (PCR) Not Detected (NotDetected) Coronavirus NL63 (PCR) Not Detected (NotDetected) Human Metapneumovir PCR Not Detected (NotDetected) Influenza Type A (PCR) Not Detected (NotDetected) Influenza Type B (PCR) Not Detected (NotDetected) M. pneumoniae (PCR) Not Detected (NotDetected) Parainfluenza 1 (PCR) Not Detected (NotDetected) Parainfluenza 2 (PCR) Not Detected (NotDetected) Parainfluenza 3 (PCR) Not Detected (NotDetected) Parainfluenza 4 (PCR) Not Detected (NotDetected) RSV (PCR) Not Detected (NotDetected) Entero/Rhino (PCR) Not Detected (NotDetected) 01/18/25 01/18/25 01/18/25 Range/Units 17:48 18:47 19:13 WBC (4.8-10.8) K/ul RBC (4.20-5.40) M/uL Hgb (12.0-16.0) g/dl POC Hgb (12.0-16.0) g/dl Hct (37.0-47.0) % POC Hct (37-47) % MCV (80.0-100.0) fL MCH (25.0-34.0) pg MCHC (32.0-36.0) g/dL RDW Std Deviation (36.4-46.3) fL RDW Coeff of Zen (11.5-14.5) % Plt Count (130-400) K/uL MPV (9.4-12.4) fL Immature Gran % (Auto) % Neut % (Auto) % Lymph % (Auto) % [place] % (Auto) % Eos % (Auto) % Baso % (Auto) % Neut # (Auto) (1.40-6.50) K/uL Lymph # (Auto) (1.20-3.40) K/uL [place] # (Auto) (0.11-0.59) K/uL Eos # (Auto) (0.00-0.50) K/uL Baso # (Auto) (0.00-0.20) K/uL Immature Gran # (Auto) (0.01-0.20) K/uL PT (9.0-12.0) Seconds INR (0.9-1.1) APTT (21-31) Seconds PTT Ratio VBG pH (7.36-7.41) VBG pCO2 (38-50) mmHg VBG pO2 mmHg VBG HCO3 mmol/L VBG O2 Saturation % VBG Base Excess mEq/L POC Sodium (135-144) mmol/L Sodium (136-145) mmol/L POC Potassium (3.3-5.0) mmol/L Potassium (3.5-5.1) mmol/L POC Chloride (101-112) mmol/L Chloride (98-107) mmol/L Carbon Dioxide (21-32) mmol/L POC Total CO2 (24-31) mmol/L Anion Gap (3-11) POC Anion Gap (16-25) mmol/L POC BUN (7-18) mg/dl BUN (6-23) mg/dl Creatinine (0.6-1.2) mg/dl POC Creatinine (0.6-1.3) mg/dl Est Cr Clr Drug Dosing ml/min eGFR BUN/Creatinine Ratio (10-20) Glucose (70-99(Fasting)) mg/dl POC Glucose (other) (70-99) mg/dl Osmolality (280-300) mOsm/kg Lactate 1.9 (0.4-2.0) mmol/L Calcium (8.6-10.3) mg/dl POC Ioniz Calcium Jonny (1.12-1.32) mmol/l Total Bilirubin (0.2-1.0) mg/dl AST (13-39) U/L ALT (7-52) U/L Alkaline Phosphatase (34-104) U/L Troponin I High Sens (0-14) pg/ml B-Natriuretic Peptide (0-100) pg/ml Total Protein (6.0-8.3) gm/dl Albumin (3.4-5.0) gm/dl Globulin (2.5-4.0) gm/dl Albumin/Globulin Ratio (0.9-2) Procalcitonin (0-0.5) ng/ml Urine Color Yellow Urine Appearance Clear (Clear) Urine pH 6.0 (4.5-7.5) Ur Specific [place] 1.023 (1.000-1.030) Urine Protein Negative (Negative) Urine Glucose (UA) 2+ H (Negative) Urine Ketones Negative (Negative) Urine Blood Negative (Negative) Urine Nitrite Negative (Negative) Urine Bilirubin Negative (Negative) Urine Urobilinogen Negative (Negative) Ur Leukocyte Esterase Trace H (Negative) Urine WBC (Auto) 6-10 H (0-5) /hpf Urine RBC (Auto) 0-2 (0-2) /hpf U Hyaline Cast (Auto) 0-2 (0-2) /lpf U Epithel Cells (Auto) 0-2 (0-2) /hpf Urine Bacteria (Auto) None Seen (None Seen) Urine Comment Nasal Screen MRSA (PCR) Positive A (Negative) Adenovirus (PCR) (NotDetected) B. pertussis DNA (PCR) (NotDetected) B.parapertussis DNA PCR (NotDetected) C. pneumoniae DNA (PCR) (NotDetected) Coronavirus OC43 (PCR) (NotDetected) Coronavirus HKU1 (PCR) (NotDetected) Coronavirus 229E (PCR) (NotDetected) SARS-CoV-2 (PCR) (NotDetected) Coronavirus NL63 (PCR) (NotDetected) Human Metapneumovir PCR (NotDetected) Influenza Type A (PCR) (NotDetected) Influenza Type B (PCR) (NotDetected) M. pneumoniae (PCR) (NotDetected) Parainfluenza 1 (PCR) (NotDetected) Parainfluenza 2 (PCR) (NotDetected) Parainfluenza 3 (PCR) (NotDetected) Parainfluenza 4 (PCR) (NotDetected) RSV (PCR) (NotDetected) Entero/Rhino (PCR) (NotDetected) Administered Medications Albuterol (Albut/Ipratrop 3mg/0.5mg Neb 3 Ml Vial) 3 ml INH QIDR STEFANI; Protocol Stop: 02/17/25 21:29 Last Admin: 01/18/25 21:48 Dose: 3 ml Documented By: MECHELLE Budesonide (Budesonide 0.5 Mg/2 Ml Vial (Pulmicort)) 0.5 mg INH BIDR STEFANI Stop: 02/17/25 21:29 Last Admin: 01/18/25 21:48 Dose: 0.5 mg Documented By: MECHELLE Formoterol Fumarate (Formoterol 20 Mcg/2 Ml Vial) 20 mcg INH BIDR STEFANI Stop: 02/17/25 21:59 Last Admin: 01/18/25 21:49 Dose: Not Given Documented By: MECHELLE Discontinued Medications Albuterol (Albut/Ipratrop 3mg/0.5mg Neb 3 Ml Vial) 12 ml NEB ONE ONE; Protocol Stop: 01/18/25 16:58 Last Admin: 01/18/25 17:17 Dose: 12 ml Documented By: COLE Cefepime HCl (Maxipime 2000mg) 2,000 mg in 20 mls @ 5 mls/min IV NOW STA; Protocol Stop: 01/18/25 18:20 Last Admin: 01/18/25 18:50 Dose: 5 mls/min Documented By: KAPIL Sodium Chloride (Nss) 500 mls @ 999 mls/hr IV .Q31M ONE Stop: 01/18/25 19:36 Last Infusion: 01/18/25 20:14 Dose: Infused Documented By: Admin: 01/18/25 19:11 Dose: 999 mls/hr Documented By: YESENIA Ioversol (Optiray 320 125ml) 78 ml IV ONCE ONE Stop: 01/18/25 18:04 Last Admin: 01/18/25 18:08 Dose: 78 ml Documented By: MARIBEL Methylprednisolone (Methylprednisolone 125 Mg/2 Ml Vial) 60 mg IV NOW STA Stop: 01/18/25 16:58 Last Admin: 01/18/25 17:53 Dose: 60 mg Documented By: Imaging Data Radiologist's Impression: Chest X-Ray 01/18/25 16:56 EXAM: Portable AP chest radiograph TECHNIQUE: AP portable radiograph of the chest was obtained. INDICATION: Shortness of breath Comparison: Chest radiograph November 01, 2023 FINDINGS: LINES and TUBES: None. CARDIOVASCULAR: Cardiac silhouette is stably and mildly enlarged in size. Atherosclerosis of the thoracic aorta LUNGS/PLEURA: Redemonstrated lucencies over the lungs bilaterally, especially in the upper lobes, suggestive of emphysema. Peribronchial cuffing may be due to bronchiolitis. There are bibasilar densities that may represent atelectasis or pneumonia, increased from previous radiograph. No significant pleural fluid. No discernible pneumothorax. OSSEOUS/OTHER: No displaced acute osseous process identified. Chronic deformity of the left humerus centered about the surgical neck. Surgical clips are noted again over the right chest wall. IMPRESSION: Bibasilar densities have increased since the previous radiograph and may represent atelectasis or pneumonia. Peribronchial cuffing suggests bronchiolitis. Electronically signed by Vadim Somers 01-18-2025 5:24 PM Chest CTA 01/18/25 16:58 CT pulmonary angiogram with IV contrast History: Shortness of breath COMPARISON: None TECHNIQUE: CT angiography of the chest was performed without IV contrast followed by IV contrast, including 3D post processing CTA image reconstruction. Dose reduction techniques were achieved by using automatic exposure control and/or adjustment of mA and/or kV according to patient size and/or use of iterative reconstruction technique. FINDINGS: Diagnostic quality: Adequate There is no evidence for pulmonary embolism. The heart is not enlarged. There is no pericardial effusion. There are no abnormally enlarged hilar or mediastinal lymph nodes. The central tracheobronchial tree is clear. Severe centrilobular emphysema. Multifocal areas of patchy focal consolidative opacities are seen, including the right lower lobe, on axial image 39 is a 2 cm nodular opacity, and in the anterior lingula is a 2 cm nodular opacity on image 54. There is no pleural effusion. Limited visualized upper abdomen. No destructive osseous changes are seen. There is a right breast implant. IMPRESSION: No evidence for pulmonary embolism. Multifocal areas of opacity are favored infectious. Electronically signed by Kobe Lyon 01-18-2025 6:27 PM Discharge Plan Visit Data Chief Complaint: Shortness of Breath/Dyspnea ED Provider: Mayo Randall Discharge Problem: Acute and chronic respiratory failure, COPD (chronic obstructive pulmonary disease), Multifocal pneumonia Patient Disposition: Admitted As Inpatient Condition: Serious Discharge Instructions Interventions: ED Discharge Assessment Last Done: 01/18/25 20:04 Discharge Problem: Acute and chronic respiratory failure Qualifiers: Respiratory failure complication: hypoxia Qualified Code(s): J96.21 - Acute and chronic respiratory failure with hypoxia COPD (chronic obstructive pulmonary disease) Qualifiers: COPD type: unspecified COPD Qualified Code(s): J44.9 - Chronic obstructive pulmonary disease, unspecified
[2025-01-18] MEDS: ALBUT/IPRATROP 3MG/0.5MG NEB 3 ML VIAL NEB ONE (17:17)
[2025-01-18 17:24] LABS: HCO3 VBG 29 mmol/L; Hematocrit (blood only) 34.5 % (37.0-47.0); Hemoglobin 11.2 g/dl (12.0-16.0); Mean Corpuscular Hemoglobin 27.5 pg (25.0-34.0); Mean Corpuscular Hgb Conc 32.5 g/dL (32.0-36.0); Mean Corpuscular Volume 84.8 fL (80.0-100.0); Mean Platelet Volume 9.8 fL (9.4-12.4); Oxygen Saturation VBG 98.7 %; PCO2 VBG 49 mmHg (38-50); PO2 VBG 86 mmHg; Platelet Count 271 K/uL (130-400); RDW Coefficient of Variation 12.7 % (11.5-14.5); Red Blood Count 4.07 M/uL (4.20-5.40); White Blood Count 15.84 K/ul (4.8-10.8); pH VBG 7.38 (7.36-7.41)
--- NOTE | 2025-01-18 17:25 | XRay Report ---
EXAM: Portable AP chest radiograph TECHNIQUE: AP portable radiograph of the chest was obtained. INDICATION: Shortness of breath Comparison: Chest radiograph November 01, 2023 FINDINGS: LINES and TUBES: None. CARDIOVASCULAR: Cardiac silhouette is stably and mildly enlarged in size. Atherosclerosis of the thoracic aorta LUNGS/PLEURA: Redemonstrated lucencies over the lungs bilaterally, especially in the upper lobes, suggestive of emphysema. Peribronchial cuffing may be due to bronchiolitis. There are bibasilar densities that may represent atelectasis or pneumonia, increased from previous radiograph. No significant pleural fluid. No discernible pneumothorax. OSSEOUS/OTHER: No displaced acute osseous process identified. Chronic deformity of the left humerus centered about the surgical neck. Surgical clips are noted again over the right chest wall. IMPRESSION: Bibasilar densities have increased since the previous radiograph and may represent atelectasis or pneumonia. Peribronchial cuffing suggests bronchiolitis. Electronically signed by Vadim Somers 01-18-2025 5:24 PM
[2025-01-18 17:32] LABS: iSTAT Creatinine 0.9 mg/dl (0.6-1.3); iSTAT Hemoglobin 11.9 g/dl (12.0-16.0); iSTAT Ionized Calcium 1.09 mmol/l (1.12-1.32)
[2025-01-18 17:39] LABS: Albumin Level 3.7 gm/dl (3.4-5.0); Bilirubin,Total 0.3 mg/dl (0.2-1.0); Calcium 9.3 mg/dl (8.6-10.3)
[2025-01-18 17:42] LABS: Basophils # (auto) 0.02 K/uL (0.00-0.20); Basophils % (auto) 0.1 %; Eosinophils # (auto) 0.01 K/uL (0.00-0.50); Eosinophils % (auto) 0.1 %; Immature Granulocytes # (auto) 0.08 K/uL (0.01-0.20); Immature Granulocytes % (auto) 0.5 %; Lymphocytes # (auto) 0.31 K/uL (1.20-3.40); Monocytes # (auto) 0.31 K/uL (0.11-0.59); Neutrophils # (auto) 15.11 K/uL (1.40-6.50); Neutrophils % (auto) 95.3 %
[2025-01-18 17:48] LABS: Albumin Globulin Ratio 1.1 (0.9-2); BUN Creatinine Ratio 18.1 (10-20); Creatinine Clr Calc Pharmacy 56.5 ml/min; Globulin 3.5 gm/dl (2.5-4.0); Total Protein 7.2 gm/dl (6.0-8.3)
[2025-01-18] MEDS: methylPREDNISolone 125 MG/2 ML VIAL IV STA (17:53)
[2025-01-18 17:54] LABS: Troponin I High Sensitivity 8.9 pg/ml (0-14)
[2025-01-18] MEDS: OPTIRAY 320 125ml IV ONE (18:08)
[2025-01-18 18:16] LABS: Partial Thromboplastin Ratio 1.1; Partial Thromboplastin Time 29 Seconds (21-31); Prothrombin Time 10.9 Seconds (9.0-12.0)
--- NOTE | 2025-01-18 18:27 | CT Scan Report ---
CT pulmonary angiogram with IV contrast History: Shortness of breath COMPARISON: None TECHNIQUE: CT angiography of the chest was performed without IV contrast followed by IV contrast, including 3D post processing CTA image reconstruction. Dose reduction techniques were achieved by using automatic exposure control and/or adjustment of mA and/or kV according to patient size and/or use of iterative reconstruction technique. FINDINGS: Diagnostic quality: Adequate There is no evidence for pulmonary embolism. The heart is not enlarged. There is no pericardial effusion. There are no abnormally enlarged hilar or mediastinal lymph nodes. The central tracheobronchial tree is clear. Severe centrilobular emphysema. Multifocal areas of patchy focal consolidative opacities are seen, including the right lower lobe, on axial image 39 is a 2 cm nodular opacity, and in the anterior lingula is a 2 cm nodular opacity on image 54. There is no pleural effusion. Limited visualized upper abdomen. No destructive osseous changes are seen. There is a right breast implant. IMPRESSION: No evidence for pulmonary embolism. Multifocal areas of opacity are favored infectious. Electronically signed by Kobe Lyon 01-18-2025 6:27 PM
[2025-01-18 18:28] LABS: Adenovirus PCR Not Detected (NotDetected); Bordetella parapertussis PCR Not Detected (NotDetected); Bordetella pertussis PCR Not Detected (NotDetected); Chlamydia pneumoniae PCR Not Detected (NotDetected); Coronavirus 229E PCR Not Detected (NotDetected); Coronavirus CoV-2 (COVID19)PCR Not Detected (NotDetected); Coronavirus HKU1 PCR Not Detected (NotDetected); Coronavirus NL63 PCR Not Detected (NotDetected); Coronavirus OC43PCR Not Detected (NotDetected); Human Metapneumovirus PCR Not Detected (NotDetected); Influenza A PCR Not Detected (NotDetected); Influenza B PCR Not Detected (NotDetected); Mycoplasma pneumoniae PCR Not Detected (NotDetected); Parainfluenza Virus 1 PCR Not Detected (NotDetected); Parainfluenza Virus 2 PCR Not Detected (NotDetected); Parainfluenza Virus 3 PCR Not Detected (NotDetected); Parainfluenza Virus 4 PCR Not Detected (NotDetected); Respiratory Syncytial VirusPCR Not Detected (NotDetected); Rhinovirus/Enterovirus PCR Not Detected (NotDetected)
[2025-01-18] MEDS: CEFEPIME 2000MG 2,000 MG/20 ML SYR IV STA (18:50)
[2025-01-18 19:02] LABS: Appearance Urine Clear (Clear); Bacteria Urine Automated None Seen (None Seen); Bilirubin Urine Negative (Negative); Blood Urine Negative (Negative); Cast Urine Automated 0-2 /lpf (0-2); Color Urine Yellow; Epithelial Cell Urine Auto 0-2 /hpf (0-2); Glucose Urine UA 2+ (Negative); Ketones Urine Negative (Negative); Leukocyte Esterase Urine Trace (Negative); Nitrite Urine Negative (Negative); Protein Urine Negative (Negative); RBC Urine Automated 0-2 /hpf (0-2); Specific Gravity Urine 1.023 (1.000-1.030); Urobilinogen Urine Negative (Negative)
[2025-01-18] MEDS: SODIUM CHLORIDE 0.9% 500 ML IV ONE (19:11)
--- NOTE | 2025-01-18 19:47 | History & Physical Report ---
Date of Service January 18, 2025 Assessment & Plan (1) Chronic respiratory failure with hypoxia, on home O2 therapy: (2) Type 2 diabetes mellitus: (3) Parkinson's disease: (4) Hyponatremia: Plan 79-year-old female presents with acute on chronic respiratory failure with hypoxia multifocal pneumonia. She resides at [facility] [place] is a longstanding history of COPD diabetes Parkinson's disease depression and persistent hyponatremia for which she is also hyponatremic worse than her usual baseline today. #Acute on chronic respiratory failure with hypoxia and multifocal pneumonia. Patient is slightly more tachypneic has a low-grade temperature and fever likely represents sepsis. Patient will be placed on cefepime therapy with doxycycline her typical azithromycin which is for chronic lung disease is held. She is on Solu-Medrol 40 twice daily and inhaled medications for COPD. Blood cultures are obtained and pending, procalcitonin is unremarkable. The patient is on DuoNebs twice daily performist Carolin #Hyponatremia. Patient will be temporarily fluid restricted she is have serum and urine awesome and random urine sodium pending TSH was checked earlier in the year was normal #Diabetes send poor control due to hyperglycemia from steroids. Patient will sommers ve an additional dose of glargine this evening her glargine dose will be split up into 25 twice daily and she will be on insulin sliding scale with carbohydrate coverage. #Parkinson's disease continues on Sinemet therapy and ropinirole for restless leg syndrome #For depression she takes mirtazapine Lamictal quetiapine and desvenlafaxine DVT prevention is heparin therapy History of Present Illness Primary Care Provider: [facility] 79-year-old female who resides at [facility], presents with acute on chronic respiratory failure with hypoxia and multifocal pneumonia. The patient has a history of diabetes Parkinson's disease frequent urinary tract infections. She states her long care from Dr. Kale Carbajal at [facility] but pulmonary medicine. She was rescued in the emergency department with BiPAP and has been given steroids and cefepime therapy. Patient says she has had productive sputum for some yellow mucus. In the emergency department she was of good mentation able to speak to me through the BiPAP mask says that she is thirsty she still has audible wheezes Allergies Allergy/AdvReac Type Severity Reaction Status Date / Time NSAIDS (Non-Steroidal AdvReac Intermediate Gastrointestinal Verified 01/18/25 18 :59 Anti-Inflamma Upset Sulfa (Sulfonamide AdvReac Intermediate Gastrointestinal Verified 01/18/25 18:59 Antibiotics) Upset Home Medications Medication Instructions Recorded Confirmed Type atorvastatin 10 mg tablet 10 mg PO HS 11/24/19 01/18/25 History acetaminophen 500 mg tablet 1,000 mg PO Q8H PRN Fever Or Pain 02/09/21 01/18/25 History (Tylenol Extra Strength) latanoprost 0.005 % eye drops 1 drp OPB DAILY 02/09/21 01/18/25 History Oxygen Home #1 ea 04/06/21 12/22/24 Rx Oxygen Home #1 ea 06/28/21 11/11/24 Rx cranberry 500 mg capsule 500 mg PO DAILY #30 caps 10/05/21 01/18/25 Rx ascorbic acid (vitamin C) 1,000 mg 1 g PO DAILY 04/20/22 01/18/25 History capsule tramadol 50 mg tablet 50 mg PO Q4H PRN Pain 09/20/22 01/18/25 History docusate sodium 100 mg capsule 200 mg PO BID 03/12/23 01/18/25 History triamcinolone acetonide 0.1 % 1 applic topical Q8H PRN Painful 03/12/23 01/18/25 History topical cream Hemorrhoids ropinirole 1 mg tablet 1 mg PO HS 30 days #30 tabs 08/28/23 01/18/25 Rx arformoterol 15 mcg/2 mL solution 2 ml inhalation Q12H 10/16/23 01/18/25 History for nebulization camphor 4.7 %-eucalyptus oil 1.2 1 applic topical Q8 PRN Congestion 10/16/23 01/18/25 History %-menthol 2.6 % topical ointment (Vicks Vaporub) hydroxyzine HCl 25 mg tablet 25 mg PO Q8H PRN Anxiety 10/16/23 01/18/25 History hydroxyzine pamoate 50 mg capsule 50 mg PO HS 10/16/23 01/18/25 History ipratropium 0.5 mg-albuterol 3 mg 3 ml inhalation Q2H PRN 10/16/23 01/18/25 History (2.5 mg base)/3 mL nebulization sob/wheezing soln loperamide 2 mg capsule 2 mg PO DIRECTED PRN loose stool 10/16/23 01/18/25 History (Anti-Diarrheal (loperamide)) sodium chloride 0.65 % nasal spray 2 spray intranasal Q2H PRN dry 10/16/23 01/18/25 History aerosol (Saline Nasal) nares sodium phosphates 19 gram-7 118 ml DE DAILY PRN Constipation 10/16/23 01/18/25 History gram/118 mL enema (Fleet Enema) budesonide 0.5 mg/2 mL suspension 0.5 mg inhalation AMPM 11/02/23 01/18/25 History for nebulization ondansetron HCl 4 mg tablet 4 mg PO Q4 PRN nausea/vomiting 11/02/23 01/18/25 History ramelteon 8 mg tablet 8 mg PO HS 11/02/23 01/18/25 History ensifentrine 3 mg/2.5 mL 3 mg (2.5 mL) inhalation BID #150 06/24/24 01/18/25 Rx suspension for nebulization mL (Ohtuvayre) mirtazapine 7.5 mg tablet 7.5 mg PO HS 06/24/24 01/18/25 History desvenlafaxine succinate 25 mg 50 mg PO QAM 08/04/24 01/18/25 History tablet,extended release 24 hr (Pristiq) insulin glargine 100 unit/mL (3 50 unit subcut HS 08/04/24 01/18/25 History mL) subcutaneous pen (Lantus Solostar U-100 Insulin) menthol 4 % topical gel (Biofreeze 1 applic topical Q4H PRN Muscle 08/04/24 01/18/25 History (menthol)) Pain methenamine hippurate 1 gram tablet 1 g PO Q12H 08/04/24 01/18/25 History spironolactone 50 mg tablet 50 mg PO BIDM 08/04/24 01/18/25 History carboxymethylcellulose sodium 1 % 1 drp ophthalmic (eye) DIRECTED 08/11/24 01/18/25 History eye drops (Artificial Tears PRN Dry Eyes (carboxymethylcellulose)) lamotrigine 150 mg tablet 150 mg PO DAILY 10/14/24 01/18/25 History quetiapine 25 mg tablet 25 mg PO BID 10/14/24 01/18/25 History pantoprazole 40 mg tablet,delayed 40 mg PO DAILYBB 12/22/24 01/18/25 History release (Protonix) revefenacin 175 mcg/3 mL solution 175 mcg inhalation DAILY 12/22/24 01/18/25 History for nebulization vibegron 75 mg tablet (Gemtesa) 75 mg PO DAILY 12/22/24 01/18/25 History aluminum-mag hydroxide-simethicone 60 ml PO Q6H PRN Dyspepsia 01/08/25 01/18/25 History 200 mg-200 mg-20 mg/5 mL oral susp (Yvette-Lanta) calcium carbonate 500 mg PO DAILY 01/08/25 01/18/25 History carbidopa 25 mg-levodopa 100 mg 1.5 tab PO QID 01/08/25 01/18/25 History tablet (Sinemet) carboxymethylcellulose sodium 1 % 1 drp OPB QID 01/08/25 01/18/25 History eye drops (Artificial Tears (carboxymethylcellulose)) denosumab 60 mg/mL subcutaneous 60 mg subcut .[id number] 01/08/25 01/18/25 History syringe (Prolia) eluxadoline 100 mg tablet (Viberzi) 100 mg PO BID IBS-D 01/08/25 01/18/25 History ergocalciferol (vitamin D2) 1,250 1,250 mcg PO WK 01/08/25 01/18/25 History mcg (50,000 unit) capsule (Vitamin D2) hydrocortisone 1 % topical cream 1 applic topical Q6H PRN 01/08/25 01/18/25 History (Preparation H Hydrocortisone) Hemorrhoids insulin lispro 100 unit/mL 1 sliding scale dose subcut UD 01/08/25 01/18/25 History subcutaneous solution (Humalog HYPERGYLCEMIA U-100 Insulin) insulin lispro 100 unit/mL 5 unit subcut TIDM 01/08/25 01/18/25 History subcutaneous solution (Humalog U-100 Insulin) menthol 7.5 mg lozenges (Taswell 7.5 mg PO Q1H PRN COUGH/SORE THROAT 01/08/25 01/18/25 History Cough Drops) pimavanserin 34 mg capsule 34 mg PO DAILY 01/08/25 01/18/25 History (Nuplazid) sodium chloride-aloe vera nasal 1 applic topical TID 01/08/25 01/18/25 History gel (Acra Saline nasal gel) Afrin (oxymetazoline) 2 spray intranasal Q12 PRN 01/18/25 01/18/25 History Congestion Milk of Magnesia 30 ml PO DAILY PRN Constipation 01/18/25 01/18/25 History azithromycin 250 mg tablet 250 mg PO DAILY 01/18/25 01/18/25 History bisacodyl 10 mg rectal suppository 10 mg DE DAILY PRN Constipation 01/18/25 01/18/25 History (Dulcolax (bisacodyl)) camphor 4.7 %-eucalyptus oil 1.2 1 applic topical Q8H PRN Congestion 01/18/25 01/18/25 History %-menthol 2.6 % topical ointment (Vicks Vaporub) carbidopa ER 50 mg-levodopa 200 mg 1 tab PO DAILY 01/18/25 01/18/25 History tablet,extended release guaifenesin 100 mg/5 mL oral 200 mg PO QID 01/18/25 01/18/25 History liquid (Yvette-Tussin) ipratropium 0.5 mg-albuterol 3 mg 3 ml inhalation QID 01/18/25 01/18/25 History (2.5 mg base)/3 mL nebulization soln prednisone 50 mg PO .FOR 2 DAYS 01/18/25 01/18/25 History Past Med/Surg History Problem List (Updated 01/08/25 @ 17:52 by Rohit Dodge MD) Acute UTI (urinary tract infection) (Acute) Abnormal vaginal bleeding (Acute) Dyslipidemia Tendinopathy of rotator cuff Type 2 diabetes mellitus A1C 8.4% 08/03/2024 Cervical radicular pain Triceps strain Gross hematuria PMB (postmenopausal bleeding) COPD (chronic obstructive pulmonary disease) (Acute) Chronic respiratory failure with hypoxia, on home O2 therapy (Acute) Family history non-contributory Hyponatremia Tremor RLS (restless legs syndrome) UTI (urinary tract infection) Anemia Parkinsonian features Encounter for pre-operative examination Pulmonary nodule seen on imaging study Irritable bowel syndrome with diarrhea Hemorrhoids History of recurrent UTIs Parkinson's disease Anxiety Mixed stress and urge urinary incontinence Dyspnea Overactive bladder Recurrent UTI Antibiotic-resistant bacterial infection Medical History DVT prophylaxis Metabolic alkalosis Benzodiazepine dependence Urinary incontinence Vitamin D deficiency Osteoporosis Diverticulosis Rosacea Urethral prolapse Nodule of right lung Glaucoma Sensorineural deafness Breast CA Hypertension Hyperlipidemia Insomnia IBS (irritable bowel syndrome) Hypokalemia Lower extremity edema Surgical History H/O colonoscopy History of esophagogastroduodenoscopy (EGD) Hx of tubal ligation History of tonsillectomy H/O right cataract extraction Status post myringotomy with insertion of tube H/O right mastectomy Family History Other Cancer Colonic polyp Coronary heart disease Hypertension IBS (irritable bowel syndrome) Stroke Social History Smoking Status: Former smoker Tobacco Type: Cigarettes Age Started Using Tobacco: 18; Age Quit Using Tobacco: 69; packs per day: 1.5; Second Hand Exposure: No; Do You Dip or Chew Tobacco: No; Hx Alcohol Use: No Hx Substance Use: Yes ([facility]) Last Used Substance: Days (ago) Substance Use Type Other:: anxiety and pain medication used as needed Preferred Language: Amharic Communication Ability: Effective Brick Chimney Builder Required: No Beliefs That Will Affect Care: None Current Living Situation: Retirement Current Living Situation Comment: [facility] Feels Safe at Home: Yes Assistive Devices: Oxygen - Continuous Review of Systems Review of Systems: Review of systems patient says she has had increasing shortness of breath yellow productive mucus and wheezing over the last few days otherwise she is on 3 to 4 L of oxygen following Dr. Carbajal Physical Exam Physical Exam: The patient appeared well nourished and normally developed. She was in moderate respiratory distress Vital signs as documented. Head exam is normocephalic atraumatic Neck is without JVD, thyromegaly, or carotid bruits. Lungs are bilateral wheezes with good excursion with BiPAP Cardiac exam, Rhythm is regular.. No murmurs, rubs or gallops. Abdominal exam reveals normal bowel sounds, soft non tender, no masses Extremities are 1+ bilateral edema and both pedal pulses are present Neurologic exam is alert and oriented, no focal loss of strength or sensation Skin is without bruises or rashes Psychologically is without concerns for anxiety or depression.. Results & Data Results & Data Vital Signs (Past 12 Hours) Vital Signs Temp Pulse Pulse Resp BP BP Pulse Ox 01/18/25 19:00 108 H 26 H 153/95 H 96 01/18/25 18:14 107 H 22 95 01/18/25 18:00 95 01/18/25 17:30 107 H 21 97 01/18/25 17:28 149/89 H 01/18/25 17:27 106 H 21 98 01/18/25 17:27 107 H 21 97 01/18/25 17:27 107 H 20 149/89 H 98 01/18/25 17:17 109 H 20 96 01/18/25 17:15 108 H 01/18/25 17:02 109 H 20 95 01/18/25 17:00 147/87 H 01/18/25 17:00 106 H 21 93 01/18/25 16:49 01/18/25 16:49 99.3 F 108 H 20 127/91 96 O2 Del Method O2 Flow Rate FiO2 01/18/25 19:00 BiPAP 01/18/25 18:14 40 01/18/25 18:00 01/18/25 17:30 01/18/25 17:28 01/18/25 17:27 40 01/18/25 17:27 BiPAP 40 01/18/25 17:27 BiPAP 40 01/18/25 17:17 BiPAP 40 01/18/25 17:15 01/18/25 17:02 40 01/18/25 17:00 01/18/25 17:00 01/18/25 16:49 Room Air 01/18/25 16:49 Nasal Cannula 6 Laboratory Results Reviewed CBC chemistry CTA and chest x-ray Code Status & VTE Plan VTE Prophylaxis Plan VTE Prophylaxis will be ordered: Yes PG Care Time/CCT Total # of Minutes Spent Total Time Spent with Patient: Total time spent is greater than 50% in coordination of care (as documented) at patient's floor/unit and/or counseling patient: Coding Level of Care Code 68814 INT INP/OBS CARE 3/75MIN Diagnoses Chronic respiratory failure with hypoxia, on home O2 therapy J96.11; Z99.81 Type 2 diabetes mellitus without complication, with long-term current use of insulin E11.9; Z79.4 Diabetes mellitus complication status: without complication Diabetes mellitus long-term insulin use: with long-term use Parkinson's disease G20 Hyponatremia E87.1 (2) Type 2 diabetes mellitus Diabetes mellitus complication status: without complication Diabetes mellitus long-term insulin use: with director long term care use Qualified Code(s): E11.9 - Type 2 diabetes mellitus without complications; Z79.4 - [facility] (current) use of ins ulin
[2025-01-18] MEDS ORDERED: GLUCAGON FOR INJ 1 MG VIAL SQ PRN (20:49)
[2025-01-18] MEDS ORDERED: ACETAMINOPHEN 325 MG TAB PO PRN (20:49)
[2025-01-18] MEDS ORDERED: SOD PHOSPHATE/SOD BIPHOSPHATE ENEMA 132 ML BTL PR PRN (20:49)
[2025-01-18] MEDS ORDERED: GLUCOSE 10 TAB/TUBE PO PRN (20:49)
[2025-01-18] MEDS ORDERED: SODIUM CHLORIDE 0.65% NA SOLN 45 ML (OCEAN) PRN (20:49)
[2025-01-18] MEDS ORDERED: GLUCOSE 40% GEL 15 GM TUBE PO PRN (20:49)
[2025-01-18] MEDS ORDERED: bisacodyL 10 MG SUPP PR PRN (20:49)
[2025-01-18] MEDS ORDERED: TRIAMCINOLONE ACET 0.1% CR 15 GM TUBE TOP PRN (20:49)
[2025-01-18] MEDS ORDERED: ALBUT/IPRATROP 3MG/0.5MG NEB 3 ML VIAL NEB PRN (20:49)
[2025-01-18] MEDS ORDERED: LOPERAMIDE HCL 2 MG CAP PO PRN (20:49)
[2025-01-18] MEDS ORDERED: DEXTROSE 50% 50 ML SYRINGE IV PRN (20:49)
[2025-01-18] MEDS ORDERED: methylPREDNISolone 125 MG/2 ML VIAL IV SCH (21:00)
[2025-01-18] MEDS: BUDESONIDE 0.5 MG/2 ML VIAL (PULMICORT) INH SCH (21:48)
[2025-01-18] MEDS: ALBUT/IPRATROP 3MG/0.5MG NEB 3 ML VIAL INH SCH (21:48)
[2025-01-18] MEDS: FORMOTEROL 20 MCG/2 ML VIAL INH SCH (21:49)
[2025-01-18] MEDS ORDERED: HYDROCORTISONE HC 2.5% CRM 30GM TUBE EXT PRN (22:08)
[2025-01-18] MEDS: HEPARIN SOD 5,000 UNIT/0.5 ML VIAL SQ SCH (22:16)
[2025-01-18] MEDS: LATANOPROST 0.005% OP SOLN 2.5 ML BTL OPB SCH (22:18)
[2025-01-18] MEDS: LANTUS PER UNIT CHARGE SQ ONE (22:18)
[2025-01-18] MEDS: INSULIN ASPART PER UNIT CHARGE SC SCH (22:19)
[2025-01-18] MEDS: MIRTAZAPINE TAB 15 MG TAB PO SCH (22:21)
[2025-01-18] MEDS: CARBIDOPA/LEVODOPA 25/100MG TAB PO SCH (22:21)
[2025-01-18] MEDS: rOPINIRole HCL 1 MG TABLET PO SCH (22:22)
[2025-01-18] MEDS: QUEtiapine FUMARATE 25 MG TABLET PO SCH (22:22)
[2025-01-18] MEDS: hydrOXYzine HCl 25 MG TAB PO SCH (22:22)
[2025-01-18] MEDS: ACETAMINOPHEN 500 MG TAB PO PRN (22:26)
[2025-01-18] MEDS: DOCUSATE SODIUM 100 MG CAP PO SCH (22:29)
[2025-01-19] MEDS: ALBUT/IPRATROP 3MG/0.5MG NEB 3 ML VIAL INH PRN (04:43)
[2025-01-19] MEDS: traMADol HCL 50 MG TABLET PO PRN (05:12)
[2025-01-19] MEDS: CEFEPIME 2000MG 2,000 MG/20 ML SYR IV SCH ×2 (05:42→13:25)
[2025-01-19] MEDS: methylPREDNISolone 40 MG in SYRINGE 0 ML IV SCH (05:42)
[2025-01-19] MEDS: DOXYCYCLINE HYCLATE 100 MG in DEXTROSE 5% MINI-B 100 ML IV SCH (05:43)
[2025-01-19 06:09] LABS: Hematocrit (blood only) 34.8 % (37.0-47.0); Hemoglobin 11.3 g/dl (12.0-16.0); Mean Corpuscular Hemoglobin 27.7 pg (25.0-34.0); Mean Corpuscular Hgb Conc 32.5 g/dL (32.0-36.0); Mean Corpuscular Volume 85.3 fL (80.0-100.0); Mean Platelet Volume 10.2 fL (9.4-12.4); Platelet Count 287 K/uL (130-400); RDW Coefficient of Variation 12.7 % (11.5-14.5); RDW Standard Deviation 39.8 fL (36.4-46.3); Red Blood Count 4.08 M/uL (4.20-5.40)
[2025-01-19 06:28] LABS: Calcium 9.2 mg/dl (8.6-10.3); Potassium 5.2 mmol/L (3.5-5.1)
[2025-01-19 06:33] LABS: BUN Creatinine Ratio 20.3 (10-20); Creatinine Clr Calc Pharmacy 66.3 ml/min
[2025-01-19] MEDS: LANTUS PER UNIT CHARGE SC SCH (08:25)
[2025-01-19] MEDS: lamoTRIgine 100 MG TAB PO SCH (08:27)
[2025-01-19] MEDS: CALCIUM CARBONATE 1250MG TAB PO SCH (08:29)
[2025-01-19] MEDS: ASCORBIC ACID 500 MG TAB PO SCH (08:29)
[2025-01-19] MEDS: CARBIDOPA/LEVODOPA 50/200MG EXT REL TAB PO SCH (08:30)
[2025-01-19] MEDS: PANTOprazole 40 MG TAB PO SCH (08:30)
[2025-01-19] MEDS: ARTIFICIAL TEARS OP SCH (11:00)
--- NOTE | 2025-01-19 13:40 | Hospitalist Progress Note ---
Date of Service January 19, 2025 Assessment & Plan (1) Multifocal pneumonia: (2) Chronic respiratory failure with hypoxia, on home O2 therapy: (3) Type 2 diabetes mellitus: (4) Parkinson's disease: (5) Hyponatremia: (6) Acute and chronic respiratory failure: Plan 79-year-old female presents with acute on chronic respiratory failure with hypoxia multifocal pneumonia. She resides at [facility] is a longstanding history of COPD diabetes Parkinson's disease depression and persistent hyponatremia for which she is also hyponatremic worse than her usual baseline today. # Multifocal PNA Patient presents with SOB Found to have multifocal PNA on x ray cultures obtained started empirically on cefepime and Doxycycline COPD excaerbation Excaerbation due to PNA continue treatment as above still some wheeze on exam continue duonebds sheduled and prn, soluledrol #Acute on chronic respiratory failure with hypoxia Secondary to COPD and PNA Continue supplementa oxygen wean as tolerated #Hyponatremia. Patient will be temporarily fluid restricted she is have serum and urine awesome and random urine sodium pending TSH was checked earlier in the year was normal #Diabetes send poor control due to hyperglycemia from steroids. Patient will have an additional dose of glargine this evening her glargine dose will be split up into 25 twice daily and she will be on insulin sliding scale with carbohydrate coverage. #Parkinson's disease continues on Sinemet therapy and ropinirole for restless leg syndrome #For depression she takes mirtazapine Lamictal quetiapine and desvenlafaxine DVT prevention is heparin therapy Admission and Anticipated Discharge Date Admission Date: January 18, 2025 Subjective patient seen and examined, says she feels better Review of Systems Review of Systems: All systems reviewed are negative, apart from the ones contained in the history. Physical Exam Physical Exam: The patient is awake, alert and oriented 3, well developed and well nourished, normocephalic and atraumatic, lying in bed and in no acute distress. HEENT--PERRL, EOMI, mucous membranes and oropharynx mildly dry Neck--supple. No JVD. No bruits. Thyroid normal, trachea midline, no adenopathy. Heart--normal S1 and S2. No murmurs, rubs or gallops. Lungs--reduced air entry on auscultation some wheeze Abdomen--normal bowel sounds and soft. Extremities--no cyanosis or clubbing. No edema. Dermatologic--normal skin turgor, normal color, no abnormal lymph nodes, no rash. Neurologic--cranial nerves II through XII grossly intact. Rheumatologic--normal range of motion. Psychiatric--normal affect. Results & Data Results & Data Vital Signs (Past 12 Hours) Vital Signs Temp Pulse Pulse Resp BP Pulse Ox O2 Del Method 01/19/25 11:32 97.9 F 106 H 18 167/78 H 94 Nasal Cannula 01/19/25 10:36 92 H 17 95 Nasal Cannula 01/19/25 08:00 82 01/19/25 08:00 Nasal Cannula 01/19/25 07:17 98.1 F 58 L 18 131/81 94 Oxymask 01/19/25 07:04 91 H 17 96 Oxymask 01/19/25 04:44 90 18 97 Oxymask 01/19/25 04:28 97.9 F 93 H 18 149/79 H 96 Oxymask O2 Flow Rate 01/19/25 11:32 01/19/25 10:36 4 01/19/25 08:00 01/19/25 08:00 4 01/19/25 07:17 01/19/25 07:04 7 01/19/25 04:44 6 01/19/25 04:28 PG Care Time/CCT Total # of Minutes Spent Total Time Spent with Patient: Total time spent is greater than 50% in coordination of care (as documented) at patient's floor/unit and/or counseling patient: Coding Level of Care Code 57259 SUB INP/OBS CARE 2/35MIN Diagnoses Multifocal pneumonia J18.9 Chronic respiratory failure with hypoxia, on home O2 therapy J96.11; Z99.81 Type 2 diabetes mellitus without complication, with long-term current use of insulin E11.9; Z79.4 Diabetes mellitus intermodal dispatcher insulin use: with longterm use Diabetes mellitus complication status: without complication Parkinson's disease G20 Hyponatremia E87.1 Acute and chronic respiratory failure J96.21 Respiratory failure complication: hypoxia Time Spent (min) 35 (3) Type 2 diabetes mellitus Diabetes mellitus longterm insulin use: with intermodal dispatcher use Diabetes mellitus complication status: without complication Qualified Code(s): E11.9 - Type 2 diabetes mellitus without complications; Z79.4 - [facility] (current) use of insulin (6) Acute and chronic respiratory failure Respiratory failure complication: hypoxia Qualified Code(s): J96.21 - Acute and chronic respiratory failure with hypoxia
[2025-01-19] MEDS: COUGH DROP (SUGAR FREE) LOZ 24 LOZ/1 BOX BUCCAL PRN (23:24)
[2025-01-20] MEDS: OXYMETAZOLINE 0.05% 30 ML BTL NAE PRN (05:57)
[2025-01-20 06:18] LABS: Hematocrit (blood only) 38.4 % (37.0-47.0); Hemoglobin 11.9 g/dl (12.0-16.0); Mean Corpuscular Hemoglobin 26.9 pg (25.0-34.0); Mean Corpuscular Volume 86.9 fL (80.0-100.0); Mean Platelet Volume 9.7 fL (9.4-12.4); Platelet Count 357 K/uL (130-400); RDW Coefficient of Variation 12.9 % (11.5-14.5); RDW Standard Deviation 41.1 fL (36.4-46.3); Red Blood Count 4.42 M/uL (4.20-5.40); White Blood Count 15.29 K/ul (4.8-10.8)
[2025-01-20 06:43] LABS: Calcium 9.7 mg/dl (8.6-10.3); Creatinine Clr Calc Pharmacy 57.4 ml/min; Potassium 4.9 mmol/L (3.5-5.1)
[2025-01-20] MEDS: ALPRAZolam 0.25 MG TABLET PO PRN (09:58)
--- NOTE | 2025-01-20 11:38 | Hospitalist Progress Note ---
Date of Service January 20, 2025 Assessment & Plan (1) Multifocal pneumonia: (2) Chronic respiratory failure with hypoxia, on home O2 therapy: (3) Type 2 diabetes mellitus: (4) Parkinson's disease: (5) Hyponatremia: (6) Acute and chronic respiratory failure: Plan 79-year-old female presents with acute on chronic respiratory failure with hypoxia multifocal pneumonia. She resides at [facility] is a longstanding history of COPD diabetes Parkinson's disease depression and persistent hyponatremia for which she is also hyponatremic worse than her usual baseline today. # Multifocal PNA Patient presents with SOB Found to have multifocal PNA on x ray cultures obtained started empirically on cefepime and Doxycycline clinically feels better COPD exacerbation Exacerbation due to PNA continue treatment as above still some wheeze on exam continue duonebds sheduled and prn, soluledrol #Acute on chronic respiratory failure with hypoxia Secondary to COPD and PNA Continue supplemental oxygen wean as tolerated Leucocytosis I think this is driven mostly by the steroids she is afebrile #Hyponatremia. Resolved UTI Had ESBL UTI a couple of weeks ago Treated with Fosfamycin #Diabetes send poor control due to hyperglycemia from steroids. Patient will have an additional dose of glargine this evening her glargine dose will be split up into 25 twice daily and she will be on insulin sliding scale with carbohydrate coverage. #Parkinson's disease continues on Sinemet therapy and ropinirole for restless leg syndrome #For depression she takes mirtazapine Lamictal quetiapine and desvenlafaxine DVT prevention is heparin therapy Disposition: Hopefully d/c in the next 48 hrs Admission and Anticipated Discharge Date Admission Date: January 18, 2025 Subjective patient seen and examined, says she feels better, although was a bit teary, saying she has been going through a lot Review of Systems Review of Systems: All systems reviewed are negative, apart from the ones contained in the history. Physical Exam Physical Exam: The patient is awake, alert and oriented 3, well developed and well nourished, normocephalic and atraumatic, lying in bed and in no acute distress. HEENT--PERRL, EOMI, mucous membranes and oropharynx mildly dry Neck--supple. No JVD. No bruits. Thyroid normal, trachea midline, no adenopathy. Heart--normal S1 and S2. No murmurs, rubs or gallops. Lungs--reduced air entry on auscultation some wheeze Abdomen--normal bowel sounds and soft. Extremities--no cyanosis or clubbing. No edema. Dermatologic--normal skin turgor, normal color, no abnormal lymph nodes, no rash. Neurologic--cranial nerves II through XII grossly intact. Rheumatologic--normal range of motion. Psychiatric--normal affect. Results & Data Results & Data Vital Signs (Past 12 Hours) Vital Signs Temp Pulse Pulse Resp BP Pulse Ox O2 Del Method 01/20/25 11:15 89 18 96 Nasal Cannula 01/20/25 08:00 89 01/20/25 08:00 Nasal Cannula 01/20/25 07:17 97.9 F 100 H 22 158/69 H 95 Nasal Cannula 01/20/25 07:14 100 H 20 95 Nasal Cannula 01/20/25 03:23 98.4 F 79 20 126/78 94 Nasal Cannula O2 Flow Rate 01/20/25 11:15 4 01/20/25 08:00 01/20/25 08:00 4 01/20/25 07:17 4 01/20/25 07:14 4 01/20/25 03:23 4 PG Care Time/CCT Total # of Minutes Spent Total Time Spent with Patient: Total time spent is greater than 50% in coordination of care (as documented) at patient's floor/unit and/or counseling patient: Coding Level of Care Code 72119 SUB INP/OBS CARE 2/35MIN Diagnoses Multifocal pneumonia J18.9 Chronic respiratory failure with hypoxia, on home O2 therapy J96.11; Z99.81 Type 2 diabetes mellitus without complication, with long-term current use of insulin E11.9; Z79.4 Diabetes mellitus usp insulin use: with usp use Diabetes mellitus complication status: without complication Parkinson's disease G20 Hyponatremia E87.1 Acute and chronic respiratory failure J96.21 Respiratory failure complication: hypoxia Time Spent (min) 35 (3) Type 2 diabetes mellitus Diabetes mellitus usp insulin use: with usp use Diabetes mellitus complication status: without complication Qualified Code(s): E11.9 - Type 2 diabetes mellitus without complications; Z79.4 - technician terminal and repeater (current) use of insulin (6) Acute and chronic respiratory failure Respiratory failure complication: hypoxia Qualified Code(s): J96.21 - Acute and chronic respiratory failure with hypoxia
--- NOTE | 2025-01-20 15:52 | Electrocardiogram Report ---
Test Reason : Blood Pressure : */* mmHG Vent. Rate : 108 BPM Atrial Rate : 108 BPM P-R Int : 144 ms QRS Dur : 78 ms QT Int : 362 ms P-R-T Axes : 83 68 83 degrees QTcB Int : 485 ms Sinus tachycardia Otherwise normal ECG When compared with ECG of 01-Nov-2023 22:16, Vent. rate has increased by 41 bpm Confirmed by Kai Mejia ([id number]) on 01/20/2025 3:52:20 PM Referred By: [facility] Confirmed By: Kai Mejia
[2025-01-20] MEDS: CEFEPIME 2000MG 2,000 MG/20 ML SYR IV SCH (17:14)
[2025-01-20] MEDS ORDERED: SULFAMETHOXAZOLE/TRIMETHOPRIM DS 800/160MG TAB PO SCH (21:00)
[2025-01-21 06:27] LABS: Hematocrit (blood only) 38.7 % (37.0-47.0); Hemoglobin 12.5 g/dl (12.0-16.0); Mean Corpuscular Hemoglobin 27.6 pg (25.0-34.0); Mean Corpuscular Hgb Conc 32.3 g/dL (32.0-36.0); Mean Corpuscular Volume 85.4 fL (80.0-100.0); Mean Platelet Volume 9.6 fL (9.4-12.4); Platelet Count 359 K/uL (130-400); RDW Standard Deviation 40.3 fL (36.4-46.3); Red Blood Count 4.53 M/uL (4.20-5.40); White Blood Count 13.47 K/ul (4.8-10.8)
[2025-01-21 06:41] LABS: BUN Creatinine Ratio 22.7 (10-20); Calcium 9.4 mg/dl (8.6-10.3); Creatinine Clr Calc Pharmacy 58.7 ml/min
[2025-01-21] MEDS: ONDANSETRON INJ 2 MG/ML 2 ML VIAL IV PRN (08:34)
[2025-01-21] MEDS: DOXYCYCLINE HYCLATE 100 MG CAP PO SCH (12:22)
[2025-01-21] MEDS ORDERED: ALBUT/IPRATROP 3MG/0.5MG NEB 3 ML VIAL NEB PRN (14:18)
[2025-01-21] MEDS ORDERED: levoFLOXacin 750 MG TAB PO SCH (17:00)
[2025-01-21] MEDS: cefUROXime axetil 500 MG TAB PO SCH (20:27)
--- NOTE | 2025-01-21 21:41 | Hospitalist Progress Note ---
Date of Service January 21, 2025 Assessment & Plan (1) Multifocal pneumonia: (2) Chronic respiratory failure with hypoxia, on home O2 therapy: (3) Type 2 diabetes mellitus: (4) Parkinson's disease: (5) Hyponatremia: (6) Acute and chronic respiratory failure: Plan 79-year-old female presents with acute on chronic respiratory failure with hypoxia multifocal pneumonia. She resides at [facility] is a longstanding history of COPD diabetes Parkinson's disease depression and persistent hyponatremia for which she is also hyponatremic worse than her usual baseline today. # Multifocal PNA Patient presents with SOB Found to have multifocal PNA on x ray cultures obtained started empirically on cefepime and Doxycycline clinically feels better but not at baseline. will continue to monitor Transitioned cefepime to oral antibiotics: cefuroxime and doxy COPD exacerbation Exacerbation due to PNA continue treatment as above still some wheeze on exam continue duonebds sheduled and prn, soluledrol #Acute on chronic respiratory failure with hypoxia Secondary to COPD and PNA Continue supplemental oxygen wean as tolerated Leucocytosis I think this is driven mostly by the steroids she is afebrile #Hyponatremia. Resolved UTI Had ESBL UTI a couple of weeks ago Treated with Fosfamycin #Diabetes send poor control due to hyperglycemia from steroids. Patient will have an additional dose of glargine this evening her glargine dose will be split up into 25 twice daily and she will be on insulin sliding scale with carbohydrate coverage. #Parkinson's disease continues on Sinemet therapy and ropinirole for restless leg syndrome #For depression she takes mirtazapine Lamictal quetiapine and desvenlafaxine DVT prevention is heparin therapy Disposition: Hopefully d/c in the next 48 hrs Admission and Anticipated Discharge Date Admission Date: January 18, 2025 Subjective Patient is a 79 yo female reports no new symptoms. Physical Exam Physical Exam: The patient is awake, alert and oriented 3 HEENT--PERRL, EOMI, mucous membranes and oropharynx mildly dry Neck--supple. No JVD. No bruits. Thyroid normal, trachea midline, no adenopathy. Heart--normal S1 and S2. No murmurs, rubs or gallops. Lungs--reduced air entry on auscultation some wheeze Abdomen--normal bowel sounds and soft. Extremities--no cyanosis or clubbing. No edema. Neurologic--cranial nerves II through XII grossly intact. Rheumatologic--normal range of motion. Psychiatric--normal affect. Results & Data Results & Data Vital Signs (Past 12 Hours) Vital Signs Temp Pulse Pulse Resp BP Pulse Ox O2 Del Method 01/21/25 20:53 134/73 01/21/25 19:26 93 H 22 96 Nasal Cannula 01/21/25 19:08 36.7 C 103 H 20 177/80 H 89 L Nasal Cannula 01/21/25 15:14 86 01/21/25 15:06 36.8 C 81 22 122/71 97 Nasal Cannula 01/21/25 11:30 36.7 C 94 H 18 129/73 94 Nasal Cannula 01/21/25 10:11 75 O2 Flow Rate 01/21/25 20:53 01/21/25 19:26 4 01/21/25 19:08 4 01/21/25 15:14 01/21/25 15:06 4 01/21/25 11:30 4 01/21/25 10:11 PG Care Time/CCT Total # of Minutes Spent Total Time Spent with Patient: Total time spent is greater than 50% in coordination of care (as documented) at patient's floor/unit and/or counseling patient: Coding Level of Care Code 33739 SUB INP/OBS CARE 3/50MIN Diagnoses Multifocal pneumonia J18.9 Chronic respiratory failure with hypoxia, on home O2 therapy J96.11; Z99.81 Type 2 diabetes mellitus without complication, with long-term current use of insulin E11.9; Z79.4 Diabetes mellitus complication status: without complication Diabetes mellitus penitentiary insulin use: with penitentiary use Parkinson's disease G20 Hyponatremia E87.1 Acute and chronic respiratory failure J96.21 Respiratory failure complication: hypoxia (3) Type 2 diabetes mellitus Diabetes mellitus complication status: without complication Diabetes mellitus intermodal customer service insulin use: with intermodal customer service use Qualified Code(s): E11.9 - Type 2 diabetes mellitus without complications; Z79.4 - terminal superintendent (current) use of insulin (6) Acute and chronic respiratory failure Respiratory failure complication: hypoxia Qualified Code(s): J96.21 - Acute and chronic respiratory failure with hypoxia
[2025-01-22 06:19] LABS: Hematocrit (blood only) 39.9 % (37.0-47.0); Hemoglobin 12.5 g/dl (12.0-16.0); Mean Corpuscular Hemoglobin 27.3 pg (25.0-34.0); Mean Corpuscular Hgb Conc 31.3 g/dL (32.0-36.0); Mean Corpuscular Volume 87.1 fL (80.0-100.0); Mean Platelet Volume 9.5 fL (9.4-12.4); Platelet Count 326 K/uL (130-400); RDW Coefficient of Variation 13.2 % (11.5-14.5); RDW Standard Deviation 41.5 fL (36.4-46.3); Red Blood Count 4.58 M/uL (4.20-5.40); White Blood Count 13.42 K/ul (4.8-10.8)
[2025-01-22 06:37] LABS: BUN Creatinine Ratio 20.6 (10-20); Creatinine Clr Calc Pharmacy 51.1 ml/min; Potassium 4.1 mmol/L (3.5-5.1)
[2025-01-22] MEDS: hydrOXYzine HCl 25 MG TAB PO PRN (08:06)
[2025-01-22] MEDS: PANTOprazole 40 MG TAB PO SCH (12:29)
[2025-01-22] MEDS: ONDANSETRON 4 MG OD TAB PO STA (13:00)
--- NOTE | 2025-01-22 22:37 | Hospitalist Progress Note ---
Date of Service January 22, 2025 Assessment & Plan (1) Multifocal pneumonia: (2) Chronic respiratory failure with hypoxia, on home O2 therapy: (3) Type 2 diabetes mellitus: (4) Parkinson's disease: (5) Hyponatremia: (6) Acute and chronic respiratory failure: Plan 79-year-old female presents with acute on chronic respiratory failure with hypoxia multifocal pneumonia. She resides at [facility] is a longstanding history of COPD diabetes Parkinson's disease depression and persistent hyponatremia for which she is also hyponatremic worse than her usual baseline today. # Multifocal PNA Patient presents with SOB Found to have multifocal PNA on x ray cultures obtained started empirically on cefepime and Doxycycline clinically feels better but not at baseline. will continue to monitor Transitioned cefepime to oral antibiotics: cefuroxime and doxy Patient with nausea today, this may be due to oral antibiotics. will keep patient for another day to monitor antibiotic intake and tolerance. ordered zofran. COPD exacerbation Exacerbation due to PNA continue treatment as above still some wheeze on exam continue duonebds sheduled and prn, soluledrol #Acute on chronic respiratory failure with hypoxia Secondary to COPD and PNA Continue supplemental oxygen wean as tolerated Leucocytosis I think this is driven mostly by the steroids she is afebrile #Hyponatremia. Resolved UTI Had ESBL UTI a couple of weeks ago Treated with Fosfamycin #Diabetes send poor control due to hyperglycemia from steroids. Patient will have an additional dose of glargine this evening her glargine dose will be split up into 25 twice daily and she will be on insulin sliding scale with carbohydrate coverage. #Parkinson's disease continues on Sinemet therapy and ropinirole for restless leg syndrome #For depression she takes mirtazapine Lamictal quetiapine and desvenlafaxine DVT prevention is heparin therapy Disposition: Hopefully d/c in the next 48 hrs Admission and Anticipated Discharge Date Admission Date: January 18, 2025 Subjective 79 yo female reports having nausea. Physical Exam Physical Exam: The patient is awake, alert and oriented 3 HEENT--PERRL, EOMI, mucous membranes and oropharynx mildly dry Neck--supple. No JVD. No bruits. Thyroid normal, trachea midline, no adenopathy. Heart--normal S1 and S2. No murmurs, rubs or gallops. Lungs--reduced air entry on auscultation some wheeze Abdomen--normal bowel sounds and soft. Extremities--no cyanosis or clubbing. No edema. Neurologic--cranial nerves II through XII grossly intact. Rheumatologic--normal range of motion. Psychiatric--normal affect. Results & Data Results & Data Vital Signs (Past 12 Hours) Vital Signs Temp Pulse Pulse Resp BP Pulse Ox O2 Del Method 01/22/25 21:30 Nasal Cannula 01/22/25 20:25 36.9 C 90 18 148/80 H 95 Nasal Cannula 01/22/25 15:48 36.6 C 96 H 18 117/63 99 Nasal Cannula 01/22/25 14:43 94 H O2 Flow Rate 01/22/25 21:30 4 01/22/25 20:25 4 01/22/25 15:48 4 01/22/25 14:43 PG Care Time/CCT Total # of Minutes Spent Total Time Spent with Patient: Total time spent is greater than 50% in coordination of care (as documented) at patient's floor/unit and/or counseling patient: Coding Level of Care Code 39822 SUB INP/OBS CARE 3/50MIN Diagnoses Multifocal pneumonia J18.9 Chronic respiratory failure with hypoxia, on home O2 therapy J96.11; Z99.81 Type 2 diabetes mellitus without complication, with long-term current use of insulin E11.9; Z79.4 Diabetes mellitus complication status: without complication Diabetes mellitus long term care phlebotomist insulin use: with intermediate use Parkinson's disease G20 Hyponatremia E87.1 Acute and chronic respiratory failure J96.21 Respiratory failure complication: hypoxia (3) Type 2 diabetes mellitus Diabetes mellitus complication status: without complication Diabetes mellitus long term care phlebotomist insulin use: with intermediate use Qualified Code(s): E11.9 - Type 2 diabetes mellitus without complications; Z79.4 - [facility] (current) use of insulin (6) Acute and chronic respiratory failure Respiratory failure complication: hypoxia Qualified Code(s): J96.21 - Acute and chronic respiratory failure with hypoxia
[2025-01-23] MEDS: CARBOHYDRATES FOR HYPOGLYCEMIA PO PRN (00:30)
[2025-01-23 07:26] LABS: Hematocrit (blood only) 37.6 % (37.0-47.0); Hemoglobin 12.1 g/dl (12.0-16.0); Mean Corpuscular Hemoglobin 27.6 pg (25.0-34.0); Mean Corpuscular Hgb Conc 32.2 g/dL (32.0-36.0); Mean Corpuscular Volume 85.8 fL (80.0-100.0); Mean Platelet Volume 9.9 fL (9.4-12.4); Nucleated RBC # (auto) 0.02 K/uL (0.00-0.12); Nucleated RBC % (auto) 0.2 %; Platelet Count 351 K/uL (130-400); RDW Coefficient of Variation 13.2 % (11.5-14.5); RDW Standard Deviation 40.8 fL (36.4-46.3); Red Blood Count 4.38 M/uL (4.20-5.40); White Blood Count 12.72 K/ul (4.8-10.8)
[2025-01-23 07:48] LABS: BUN Creatinine Ratio 16.9 (10-20); C Reactive Protein 3.09 mg/dl (0-0.5); Creatinine Clr Calc Pharmacy 62.8 ml/min; Potassium 4.4 mmol/L (3.5-5.1)
[2025-01-23 08:21] VITALS: TEMP 97.3
[2025-01-23] MEDS: ONDANSETRON 4 MG OD TAB PO PRN (08:57)
[2025-01-23 10:25] VITALS: BP 119/73; RESP 20; O2SAT 98
--- NOTE | 2025-01-23 13:22 | Discharge Summary ---
Discharge Summary Date of Service January 23, 2025 Principal Dx & Hospital Course #1 = Principal Diagnosis (1) Multifocal pneumonia: (2) Chronic respiratory failure with hypoxia, on home O2 therapy: (3) Type 2 diabetes mellitus: (4) Parkinson's disease: (5) Hyponatremia: (6) Acute and chronic respiratory failure: Plan 79-year-old female presents with acute on chronic respiratory failure with hypoxia multifocal pneumonia. She resides at [facility] is a longstanding history of COPD diabetes Parkinson's disease depression and persistent hyponatremia for which she is also hyponatremic worse than her usual baseline today. # Multifocal PNA Sepsis POA due to pneumonia. Patient presents with SOB Found to have multifocal PNA on x ray started empirically on cefepime and Doxycycline Patient clinically improved Transitioned cefepime to oral antibiotics: cefuroxime and doxy Patient with nausea will recommend zofran. Likely secondary to oral antibiotics. will complete 5 days of doxy and 7 days of cephalosporin COPD exacerbation Exacerbation due to PNA treatment as above #Acute on chronic respiratory failure with hypoxia Secondary to COPD and PNA Continue supplemental oxygen wean as tolerated Leucocytosis I think this is driven mostly by the steroids she is afebrile #Hyponatremia. Resolved UTI Had ESBL UTI a couple of weeks ago Treated with Fosfamycin #Diabetes send poor control due to hyperglycemia from steroids. resume home meds #Parkinson's disease continues on Sinemet therapy and ropinirole for restless leg syndrome #For depression she takes mirtazapine Lamictal quetiapine and desvenlafaxine #Left lower medial buttock deep tissue injury POA WOCN has been consulted for left lower medial buttock and medial distal gluteal cleft soft blanchable purple area. Risk Factor(s): Age, skilled nursing resident, Parkinson's, chronic respiratory failure, poorly controlled diabetes, Treatment: WOCN consultation, decubiti precautions, RD consultation, Admission HPI Per Admitting Provider 79-year-old female who resides at [facility], presents with acute on chronic respiratory failure with hypoxia and multifocal pneumonia. The patient has a history of diabetes Parkinson's disease frequent urinary tract infections. She states her long care from Dr. Kale Carbajal at [facility] but pulmonary medicine. She was rescued in the emergency department with BiPAP and has been given steroids and cefepime therapy. Patient says she has had productive sputum for some yellow mucus. In the emergency department she was of good mentation able to speak to me through the BiPAP mask says that she is thirsty she still has audible wheezes Discharge Exam The patient is awake, alert and oriented 3 HEENT--PERRL, EOMI, mucous membranes and oropharynx mildly dry Neck--supple. No JVD. No bruits. Thyroid normal, trachea midline, no adenopathy. Heart--normal S1 and S2. No murmurs, rubs or gallops. Lungs--reduced air entry on auscultation some wheeze Abdomen--normal bowel sounds and soft. Extremities--no cyanosis or clubbing. No edema. Neurologic--cranial nerves II through XII grossly intact. Rheumatologic--normal range of motion. Psychiatric--normal affect. Discharge Plan Discharge Items Patient Disposition: Transfer [facility] Reason For Visit: ACUTE ON CHRONIC RESP FAILURE, PNX Discharge Diagnosis: acute on chronic resp. failure Condition on Discharge: Serious Activity: Resume your previous activity Non-emergency contact: Primary Care Provider Call non-emergency contact if: you have any medication questions Follow-up/Referrals: [facility] [Primary Care Provider] - Diet: Carb Consistent or DM2 Addtl Attending Provider Instructions: Continue Physical Therapy at [facility] for ambulatory dysfunction Continue antibiotics starting tonight. recommend followup with PCP in 1-2 weeks. Pending Studies at Discharge: No Stand-Alone Forms: My [facility] Skilled Items Patient informed of condition?: Yes DNR: Yes Discharge Level of Care: Skilled Communicable Disease: No Discharge Prognosis: Stable Lines: None Urinary Catheter: No Medications and DC Order Prescriptions: New doxycycline hyclate 100 mg Capsule 100 mg PO BID Qty: 4 0RF cefuroxime axetil 500 mg Tablet 500 mg PO BID Qty: 7 0RF Continued revefenacin 175 mcg/3 mL solution for nebulization 175 mcg inhalation DAILY Gemtesa 75 mg tablet 75 mg PO DAILY (DME) Oxygen Home Liters Per Minute See Rx Instructions .MEDSUPPLY Qty: 1 0RF Rx Instructions: Oxygen concentrator. 3 l/m at rest and 4 l/m with exertion via n/c. Lifetime need. (DME) Oxygen Home Liters Per Minute See Rx Instructions .Route Qty: 1 0RF Rx Instructions: Discontinue humidification for oxygen per family request cranberry 500 mg capsule 500 mg PO DAILY Qty: 30 0RF Rx Instructions: administer with a meal ascorbic acid (vitamin C) 1,000 mg capsule 1 g PO DAILY Lantus Solostar U-100 Insulin 100 unit/mL (3 mL) insulin pen 50 unit subcut HS spironolactone 50 mg tablet 50 mg PO BIDM docusate sodium 100 mg capsule 200 mg PO BID triamcinolone acetonide 0.1 % cream 1 applic topical Q8H PRN (Reason: Painful Hemorrhoids) ropinirole 1 mg tablet 1 mg PO HS 30 Days Qty: 30 6RF latanoprost 0.005 % drops 1 drp OPB DAILY tramadol 50 mg tablet 50 mg PO Q4H PRN (Reason: Pain) Artificial Tears (cmc) 1 % drops 1 drp ophthalmic (eye) DIRECTED PRN (Reason: Dry Eyes) Ohtuvayre 3 mg/2.5 mL suspension for nebulization 3 mg inhalation BID Qty: 150 11RF mirtazapine 7.5 mg tablet 7.5 mg PO HS Biofreeze (menthol) 4 % gel 1 applic topical Q4H PRN (Reason: Muscle Pain) quetiapine 25 mg tablet 25 mg PO BID lamotrigine 150 mg tablet 150 mg PO DAILY atorvastatin 10 mg tablet 10 mg PO HS acetaminophen [Tylenol Extra Strength] 500 mg Tablet 1,000 mg PO Q8H PRN (Reason: Fever Or Pain) Afrin (oxymetazoline) 2 spray intranasal Q12 PRN (Reason: Congestion) ipratropium-albuterol 0.5 mg-3 mg(2.5 mg base)/3 mL Solution For Nebulization 3 ml INHALATION QID carbidopa-levodopa 50-200 mg Tablet Extended Release 1 tab PO DAILY guaifenesin [Yvette-Tussin] 100 mg/5 mL Liquid 200 mg PO QID bisacodyl [Dulcolax (bisacodyl)] 10 mg Suppository 10 mg WI DAILY PRN (Reason: Constipation) Milk of Magnesia 30 ml PO DAILY PRN (Reason: Constipation) Rx Instructions: 7.75% Vicks Vaporub 4.7-1.2-2.6 % Ointment 1 applic TOPICAL Q8H PRN (Reason: Congestion) ondansetron HCl 4 mg Tablet 4 mg PO Q4 PRN (Reason: nausea/vomiting) Qty: 10 0RF arformoterol 15 mcg/2 mL solution for nebulization 2 ml INHALATION Q12H hydroxyzine pamoate 50 mg capsule 50 mg PO HS Fleet Enema 19-7 gram/118 mL Enema 118 ml WI DAILY PRN (Reason: Constipation) Rx Instructions: Give on day 4; 7-3 shift if no BM after dulcolax Saline Nasal 0.65 % Aerosol,[place] 2 spray INTRANASAL Q2H PRN (Reason: dry nares) Rx Instructions: while awake Vicks Vaporub 4.7-1.2-2.6 % Ointment 1 applic TOPICAL Q8 PRN (Reason: Congestion) Rx Instructions: 01/18-not on faxed list ipratropium-albuterol 0.5 mg-3 mg(2.5 mg base)/3 mL solution for nebulization 3 ml inhalation Q2H PRN (Reason: sob/wheezing) loperamide [Anti-Diarrheal (loperamide)] 2 mg capsule 2 mg PO DIRECTED PRN (Reason: loose stool) Rx Instructions: TAKE 4 MG FOR FIRST DOSE, THEN 2 MG AFTER EACH LOOSE STOOL FOR A MAXIMUM DOSE OF 16 MG A DAY hydroxyzine HCl 25 mg tablet 25 mg PO Q8H PRN (Reason: Anxiety) Rx Instructions: Do not administer within eight hours before or after routine evening dose. budesonide 0.5 mg/2 mL suspension for nebulization 0.5 mg inhalation AMPM Rx Instructions: 0830 & 1800 ramelteon 8 mg Tablet 8 mg PO HS desvenlafaxine succinate [Pristiq] 25 mg tablet extended release 24 hr 50 mg PO QAM calcium carbonate 500 mg calcium (1,250 mg) Tablet 500 mg PO DAILY alum-mag hydroxide-simeth [Yvette-Lanta] 200-200-20 mg/5 mL Suspension 60 ml PO Q6H PRN (Reason: Dyspepsia) Rx Instructions: administer between meals and at bedtime insulin lispro [Humalog U-100 Insulin] 100 unit/mL Solution 5 unit SUBCUT TIDM insulin lispro [Humalog U-100 Insulin] 100 unit/mL Solution 1 sliding scale dose SUBCUT UD Rx Instructions: BSG 350-400=8 UNITS, 401-450=12 UNITS, 451-500=16 UNITS, 501-550=18 UNITS, RECHECK IN 2 HRS, 551-600=20 UNITS, RECHECK IN 1 HR, NOTIFY MD. Bain Saline Gel 1 applic TOPICAL TID Rx Instructions: APPLY TO BILAT NOSTRILS Margaret Cough Drops 7.5 mg Lozenge 7.5 mg PO Q1H PRN (Reason: COUGH/SORE THROAT) Artificial Tears (cmc) 1 % Drops 1 drp OPB QID hydrocortisone [Preparation H Hydrocortisone] 1 % Cream 1 applic TOPICAL Q6H PRN (Reason: Hemorrhoids) ergocalciferol (vitamin D2) [Vitamin D2] 1,250 mcg (50,000 unit) Capsule 1,250 mcg PO WK Rx Instructions: SATURDAY Prolia 60 mg/mL Syringe 60 mg SUBCUT .[id number] Rx Instructions: DUE 01/10/2025 Nuplazid 34 mg Capsule 34 mg PO DAILY carbidopa-levodopa [Sinemet] 25-100 mg tablet 1.5 tab PO QID Rx Instructions: 0830, 1230, 1630 & 2100 Viberzi 100 mg tablet 100 mg PO BID Held pantoprazole [Protonix] 40 mg tablet,delayed release (DR/EC) 40 mg PO DAILYBB Hold Instructions: Resume on 01/27/25. resume on 01/27 methenamine hippurate 1 gram tablet 1 g PO Q12H Hold Instructions: Resume on 01/27/25. Discontinued azithromycin 250 mg tablet 250 mg PO DAILY Rx Instructions: start 01/18- prednisone 50 mg PO .FOR 2 DAYS Rx Instructions: start 01/19; tapering doses reduce by 10mg until completed Discharge Orders: Discharge Order (Routine); Ordered 01/23/25 Ordered By: Rivas Avila Admission Data Admit Date/Time: 01/18/25 19:34 Attending Provider: Rivas Avila Admit Provider: James Spivey Primary Care Provider: [facility] Other Providers: James Spivey; [facility] Other Interventions: Discharge Summary Assessment (RN) Last Done: 01/23/25 14:17 Hospital Stay Data Consultations 01/18/25 19:05 ED Decision to Admit Stat Diagnostic Imagining Performed 01/18/25 16:58 CT angio chest PE protocol Stat Discharge Instructions Given to Patient (Per Discharging Provider) Continue Physical Therapy at [facility] for ambulatory dysfunction Continue antibiotics starting tonight. recommend followup with PCP in 1-2 weeks. Total Time Total Time Spent Total Time Spent (In Minutes): 32 Coding Level of Care Code 90961 INP/OBS DISCH >30 MIN Diagnoses Multifocal pneumonia J18.9 Chronic respiratory failure with hypoxia, on home O2 therapy J96.11; Z99.81 Type 2 diabetes mellitus without complication, with long-term current use of insulin E11.9; Z79.4 Diabetes mellitus complication status: without complication Diabetes mellitus group home insulin use: with group home use Parkinson's disease G20 Hyponatremia E87.1 Acute and chronic respiratory failure J96.21 Respiratory failure complication: hypoxia
[2025-01-23 14:10] VITALS: PULSE 94
[2025-01-25] MEDS ORDERED: ERGOCALCIFEROL 1250 MCG (50,000 UNITS) CAP PO SCH (09:00)
== END 2025-01-23 15:00 | DRG 871 ==
LOC: ED 16:46 → 2S 19:34 → SUATTDRO 19:34 → 2S 20:04

== ENCOUNTER 2025-02-23 21:21 | Observation (INO) ==
[2025-02-23 22:24] LABS: Hematocrit (blood only) 40.3 % (37.0-47.0); Hemoglobin 12.6 g/dl (12.0-16.0); Immature Granulocytes # (auto) 0.09 K/uL (0.01-0.20); Immature Granulocytes % (auto) 0.7 %; Mean Corpuscular Hemoglobin 26.6 pg (25.0-34.0); Mean Corpuscular Volume 85.2 fL (80.0-100.0); Platelet Count 222 K/uL (130-400); RDW Standard Deviation 42.6 fL (36.4-46.3); Red Blood Count 4.73 M/uL (4.20-5.40); White Blood Count 13.24 K/ul (4.8-10.8)
[2025-02-23 22:41] LABS: Alanine Aminotransferase 8.0 U/L (7-52); Albumin Globulin Ratio 1.4 (0.9-2); Alkaline Phosphatase 62.0 U/L (34-104); Anion Gap 6.0 (3-11); Bilirubin,Total 0.3 mg/dl (0.2-1.0); Blood Urea Nitrogen 7.0 mg/dl (6-23); Calcium 9.2 mg/dl (8.6-10.3); Carbon Dioxide 33.0 mmol/L (21-32); Chloride 97.0 mmol/L (98-107); Creatinine Clr Calc Pharmacy 50.0 ml/min; Globulin 2.9 gm/dl (2.5-4.0); Glucose 198.0 mg/dl (70-99(Fasting)); Lipase 13.0 U/L (11-82); Potassium 4.7 mmol/L (3.5-5.1); Sodium 136.0 mmol/L (136-145); Total Protein 7.1 gm/dl (6.0-8.3)
[2025-02-23] MEDS: OPTIRAY 320 100ml IV ONE (22:57)
[2025-02-23] MEDS ORDERED: VANCOMYCIN CONSULT ACTIVE PRN (23:05)
[2025-02-23] MEDS: SODIUM CHLORIDE 0.9% 1,000 ML IV SCH (23:07)
[2025-02-23] MEDS: MoRPHine SULFATE 4 MG/ML 1 ML CARP\\VIAL IV PRN (23:07)
[2025-02-23] MEDS: ONDANSETRON INJ 2 MG/ML 2 ML VIAL IV STA (23:07)
[2025-02-23 23:57] LABS: Appearance Urine Clear (Clear); Bacteria Urine Automated None Seen (None Seen); Cast Urine Automated 0-2 /lpf (0-2); Epithelial Cell Urine Auto 0-2 /hpf (0-2); Glucose Urine UA Negative (Negative); RBC Urine Automated 0-2 /hpf (0-2); WBC Urine Automated >50 /hpf (0-5)
--- NOTE | 2025-02-24 00:10 | CT Scan Report ---
Exam(s): CT ABDOMEN + PELVIS With Contrast IV Amt: 93 ML OPTIRAY 320 EXAM: CT Abdomen and Pelvis With Intravenous Contrast CLINICAL HISTORY: Reason for exam: RLQ abd pain. TECHNIQUE: Axial computed tomography images of the abdomen and pelvis with intravenous contrast. CTDI is 27.62 mGy and DLP is 1230.95 mGy-cm. Automated exposure control was utilized for the study. A dose lowering technique was utilized adhering to the principles of ALARA. CONTRAST: Patient received 93 ML OPTIRAY 320 of IV contrast COMPARISON: 10/21/2024 FINDINGS: Lung bases: Mild emphysematous changes in the lung bases with 3 cm area of patchy infiltrate in the right lower lobe suspicious for pneumonia or atelectasis, new since previous. ABDOMEN: Liver: Unremarkable. No mass. Gallbladder and bile ducts: Unremarkable. No calcified stones. No ductal dilation. Pancreas: Unremarkable. No mass. No ductal dilation. Spleen: Unremarkable. No splenomegaly. Adrenals: Unremarkable. No mass. Kidneys and ureters: Unremarkable. No solid mass. No hydronephrosis. Stomach and bowel: Diverticulosis of the sigmoid colon without evidence of acute diverticulitis. No obstruction. PELVIS: Appendix: There is an approximately 3.8 x 1.1 cm appendicolith in the base of the appendix. The appendix is dilated measuring 1.4 cm with slight inflammation surrounding the base suggesting mild acute appendicitis. No signs of rupture or abscess. Bladder: Unremarkable. No mass. Reproductive: Unremarkable as visualized. ABDOMEN and PELVIS: Intraperitoneal space: Unremarkable. No free air. No significant fluid collection. Bones/joints: Mild degenerative changes throughout the spine. No acute fracture or subluxation. Soft tissues: Unremarkable. Vasculature: The abdominal aorta is heavily calcified but nondilated. Lymph nodes: Unremarkable. No enlarged lymph nodes. IMPRESSION: 1. There is an approximately 3.8 x 1.1 cm appendicolith in the base of the appendix. The appendix is dilated measuring 1.4 cm with slight inflammation surrounding the base suggesting mild acute appendicitis. No signs of rupture or abscess. 2. Mild emphysematous changes in the lung bases with 3 cm area of patchy infiltrate in the right lower lobe suspicious for pneumonia or atelectasis, new since previous. Communications: Call Doctor Appendicitis Electronically signed by: Mayo Pollard MD 02/24/25 00:09 AM
--- NOTE | 2025-02-24 00:11 | XRay Report ---
Exam(s): XR CXR 1 VIEW EXAM: XR Chest, 1 View CLINICAL HISTORY: Reason for exam: COPD, recent pneumonia. TECHNIQUE: Frontal view of the chest. COMPARISON: 02/04/2025 FINDINGS: Lungs: Lungs are borderline hyperinflated with coarse interstitial markings throughout the mid to lower lungs, similar to previous. No new infiltrates are identified. Pleural space: Unremarkable. No pneumothorax. Heart: Unremarkable. No cardiomegaly. Mediastinum: Unremarkable. Normal mediastinal contour. Bones/joints: [id number] degenerative changes in the left shoulder, unchanged. No acute fracture. Soft tissues: Surgical clips in the right axilla. Vasculature: The thoracic aorta is mildly calcified. IMPRESSION: Lungs are borderline hyperinflated with coarse interstitial markings throughout the mid to lower lungs, similar to previous. No new infiltrates are identified. Electronically signed by: Mayo Pollard MD 02/24/25 00:10 AM
[2025-02-24] MEDS: PIPERACILLIN/TAZOBACTAM 4.5 GM/100 ML BAG IV ONE (00:16)
[2025-02-24] MEDS ORDERED: ALBUT/IPRATROP 3MG/0.5MG NEB 3 ML VIAL NEB PRN (00:40)
--- NOTE | 2025-02-24 00:43 | History & Physical Report ---
Date of Service February 24, 2025 Assessment & Plan (1) Sepsis: (2) Acute appendicitis: (3) COPD (chronic obstructive pulmonary disease): (4) Chronic respiratory failure with hypoxia, on home O2 therapy: Plan Patient is a 72-year-old female with past medical history of COPD on chronic oxygen (4L), type II DM on chronic insulin, Parkinson's. Patient presented due to right lower quadrant abdominal pain and poor appetite that began at 3 PM this evening found to have acute appendicitis meeting SIRS criteria with tachycardia (HR 117), tachypnea (RR 131), leukocytosis (WBC 13.24). #Sepsis/acute appendicitis - AP CT reveal acute appendicitis. + SIRS: WBC 13.24, tachypneic (RR 31), tachycardic (Hr 117) - lactate 2.7; 2 hr repeat ordered - Sepsis fluid bolus for ideal body weight = 1700mL; given 2L NSS in ED - Continue fluid resuscitation with Lr @ 80 ml/hr - ABX coverage with Zosyn and vancomycin - Blood cultures pending - general surgery consulted - NPO anticipating surgical management - pre-op H7H stable - EKG ordered - pain control with IV Tylenol prn, morphine prn for breakthrough pain - Trend CBC #COPD/hypoxia became hypoxic after morphine in ED. CXR negative. AP CT revealed possible right lower lobe infiltrate suspicious for pneumonia versus atelectasis; suspect atelectasis. Uses 4L NC at baseline. Incentive spirometry Wean oxygen as tolerated to baseline 4 L Continue home inhalers Duo-Nebs as needed Magnesium ordered, 2.3 #T2DM - Controlled on insulin at home. Most recent A1C 8.4%. - SSI with target BSG range 110-180mg/dL, CF 15, carb ratio 5 - Lantus reduced from 50 U HS to 30 U HS #HTN - hold spironolactone with acute infection #Parkinson's disease - continue Sinemet and ropinirole #mental health - continue mirtazapine, Lamictal, quetiapine, desvenlafaxine VTE ppx: SCDs, defer chemical with surgical management Dispo: med/telemetry Admission and Anticipated Discharge Date Admission Date: 02/24/25 History of Present Illness Chief Complaint: abd pain Primary Care Provider: [facility] Patient is a 72-year-old female with past medical history of COPD on chronic oxygen (4L), type II DM on chronic insulin, Parkinson's. Patient presented due to right lower quadrant abdominal pain and poor appetite that began at 3 PM this evening found to have acute appendicitis meeting SIRS criteria with tachycardia (HR 117), tachypnea (RR 131), leukocytosis (WBC 13.24). Patient seen at bedside. She stated at 3 PM she developed right lower quadrant abdominal pain and has had poor appetite for the past few days. She denies any fevers, nausea, vomiting, diarrhea. Patient also reports recent chest congestion that went away after treatment for pneumonia about a month ago however has now returned with cough and yellow mucus production, after morphine in ED patient became hypoxic requiring 7L NC (uses 4L NC at baseline). She denies any chest pain, feeling dyspnea. She was a former smoker, currently denies any nicotine use. Is due for her evening medications. Wishes to be DNR/DNI. Allergies Allergy/AdvReac Type Severity Reaction Status Date / Time NSAIDS (Non-Steroidal AdvReac Intermediate Gastrointestinal Verified 02/23/25 23:11 Anti-Inflamma Upset Sulfa (Sulfonamide AdvReac Intermediate Gastrointestinal Verified 02/23/25 23:11 Antibiotics) Upset Home Medications Medication Instructions Recorded Confirmed Type atorvastatin 10 mg tablet 10 mg PO HS 11/24/19 02/23/25 History acetaminophen 500 mg tablet 1,000 mg PO Q8H PRN Fever Or Pain 02/09/21 02/23/25 History (Tylenol Extra Strength) latanoprost 0.005 % eye drops 1 drp OPB DAILY 02/09/21 02/23/25 History Oxygen Home #1 ea 04/06/21 12/22/24 Rx Oxygen Home #1 ea 06/28/21 11/11/24 Rx cranberry 500 mg capsule 500 mg PO DAILY #30 caps 10/05/21 02/23/25 Rx ascorbic acid (vitamin C) 1,000 mg 1 g PO DAILY 04/20/22 02/23/25 History capsule tramadol 50 mg tablet 50 mg PO Q4H PRN Pain 09/20/22 02/23/25 History triamcinolone acetonide 0.1 % 1 applic topical Q8H PRN Painful 03/12/23 02/23/25 History topical cream Hemorrhoids ropinirole 1 mg tablet 1 mg PO HS 30 days #30 tabs 08/28/23 02/23/25 Rx arformoterol 15 mcg/2 mL solution 2 ml inhalation Q12H 10/16/23 02/23/25 History for nebulization hydroxyzine HCl 25 mg tablet 25 mg PO Q8H PRN Anxiety 10/16/23 02/23/25 History hydroxyzine pamoate 50 mg capsule 50 mg PO HS 10/16/23 02/23/25 History ipratropium 0.5 mg-albuterol 3 mg 3 ml inhalation Q2H PRN 10/16/23 02/23/25 History (2.5 mg base)/3 mL nebulization sob/wheezing soln loperamide 2 mg capsule 2 mg PO DIRECTED PRN loose stool 10/16/23 02/23/25 History (Anti-Diarrheal (loperamide)) sodium chloride 0.65 % nasal spray 2 spray intranasal Q2H PRN dry 10/16/23 02/23/25 History aerosol (Saline Nasal) nares budesonide 0.5 mg/2 mL suspension 0.5 mg inhalation AMPM 11/02/23 02/23/25 His tory for nebulization ramelteon 8 mg tablet 8 mg PO HS 11/02/23 02/23/25 History ensifentrine 3 mg/2.5 mL 3 mg (2.5 mL) inhalation BID #150 06/24/24 02/23/25 Rx suspension for nebulization mL (Ohtuvayre) mirtazapine 7.5 mg tablet 7.5 mg PO HS 06/24/24 02/23/25 History insulin glargine 100 unit/mL (3 50 unit subcut HS 08/04/24 02/23/25 History mL) subcutaneous pen (Lantus Solostar U-100 Insulin) menthol 4 % topical gel (Biofreeze 1 applic topical Q4H PRN Muscle 08/04/24 02/23/25 History (menthol)) Pain spironolactone 50 mg tablet 100 mg PO BIDM 08/04/24 02/23/25 History carboxymethylcellulose sodium 1 % 1 drp ophthalmic (eye) DIRECTED 08/11/24 02/23/25 History eye drops (Artificial Tears PRN Dry Eyes (carboxymethylcellulose)) lamotrigine 150 mg tablet 150 mg PO DAILY 10/14/24 02/23/25 History quetiapine 25 mg tablet 37.5 mg PO BID 10/14/24 02/23/25 History revefenacin 175 mcg/3 mL solution 175 mcg inhalation DAILY 12/22/24 02/23/25 History for nebulization vibegron 75 mg tablet (Gemtesa) 75 mg PO DAILY 12/22/24 02/23/25 History aluminum-mag hydroxide-simethicone 60 ml PO Q6H PRN Dyspepsia 01/08/25 02/23/25 History 200 mg-200 mg-20 mg/5 mL oral susp (Yvette-Lanta) calcium carbonate 500 mg PO DAILY 01/08/25 02/23/25 History carbidopa 25 mg-levodopa 100 mg 1.5 tab PO TID 01/08/25 02/23/25 History tablet (Sinemet) eluxadoline 100 mg tablet (Viberzi) 100 mg PO BIDM IBS-D 01/08/25 02/23/25 History ergocalciferol (vitamin D2) 1,250 1,250 mcg PO 2XWK 01/08/25 02/23/25 History mcg (50,000 unit) capsule (Vitamin D2) hydrocortisone 1 % topical cream 1 applic topical Q6H PRN 01/08/25 02/23/25 History (Preparation H Hydrocortisone) Hemorrhoids insulin lispro 100 unit/mL 1 sliding scale dose subcut UD 01/08/25 02/23/25 History subcutaneous solution (Humalog HYPERGYLCEMIA U-100 Insulin) insulin lispro 100 unit/mL 5 unit subcut TIDM 01/08/25 02/23/25 History subcutaneous solution (Humalog U-100 Insulin) menthol 7.5 mg lozenges ([place] 7.5 mg PO Q1H PRN COUGH/SORE THROAT 01/08/25 02/23/25 History Cough Drops) pimavanserin 34 mg capsule 34 mg PO DAILY 01/08/25 02/23/25 History (Nuplazid) sodium chloride-aloe vera nasal 1 applic topical TID 01/08/25 02/23/25 History gel ([place] Saline nasal gel) camphor 4.7 %-eucalyptus oil 1.2 1 applic topical Q8H PRN Congestion 01/18/25 02/23/25 History %-menthol 2.6 % topical ointment (Vicks Vaporub) carbidopa ER 50 mg-levodopa 200 mg 1 tab PO HS 01/18/25 02/23/25 History tablet,extended release carboxymethylcellulose sodium 1 % 1 drp OPB QID 02/23/25 02/23/25 History eye drops (Artificial Tears (carboxymethylcellulose)) desvenlafaxine succinate 50 mg 50 mg PO DAILY 02/23/25 02/23/25 History tablet,extended release 24 hr (Pristiq) guaifenesin 600 mg tablet, 600 mg PO QAM 02/23/25 02/23/25 History extended release 12 hr (Mucinex) ondansetron HCl 8 mg tablet 8 mg PO Q8H PRN NAUSEA/VOMITING 02/23/25 02/23/25 History oxymetazoline 0.05 % nasal spray 2 spray intranasal Q12H PRN Nasal 02/23/25 02/23/25 History (Afrin (oxymetazoline)) Congestion Past Med/Surg History Problem List (Updated 02/24/25 @ 04:31 by Gulshan Scales PA-C) Abdominal pain, RLQ (Acute) Acute appendicitis (Acute) Acute appendicitis Sepsis Multifocal pneumonia (Acute) Acute and chronic respiratory failure (Acute) Dyslipidemia Tendinopathy of rotator cuff Type 2 diabetes mellitus A1C 8.4% 08/03/2024 Cervical radicular pain Triceps strain Gross hematuria PMB (postmenopausal bleeding) COPD (chronic obstructive pulmonary disease) (Acute) Chronic respiratory failure with hypoxia, on home O2 therapy (Acute) Family history non-contributory Hyponatremia Tremor RLS (restless legs syndrome) UTI (urinary tract infection) Anemia Parkinsonian features Encounter for pre-operative examination Pulmonary nodule seen on imaging study Irritable bowel syndrome with diarrhea Hemorrhoids History of recurrent UTIs Parkinson's disease Anxiety Mixed stress and urge urinary incontinence Dyspnea Overactive bladder Recurrent UTI Antibiotic-resistant bacterial infection Medical History DVT prophylaxis Metabolic alkalosis Benzodiazepine dependence Urinary incontinence Vitamin D deficiency Osteoporosis Diverticulosis Rosacea Urethral prolapse Nodule of right lung Glaucoma Sensorineural deafness Breast CA Hypertension Hyperlipidemia Insomnia IBS (irritable bowel syndrome) Hypokalemia Lower extremity edema Surgical History H/O colonoscopy History of esophagogastroduodenoscopy (EGD) Hx of tubal ligation History of tonsillectomy H/O right cataract extraction Status post myringotomy with insertion of tube H/O right mastectomy Family History Other Cancer Colonic polyp Coronary heart disease Hypertension IBS (irritable bowel syndrome) Stroke Social History Smoking Status: Former smoker Tobacco Type: Cigarettes Age Started Using Tobacco: 18; Age Quit Using Tobacco: 69; packs per day: 1.5; Second Hand Exposure: No; Do You Dip or Chew Tobacco: No; Tobacco Cessation Education Requested by Patient: No Hx Alcohol Use: No Hx Substance Use: No Preferred Language: Chadian Communication Ability: Effective Groundskeeper Supervisor Required: No Beliefs That Will Affect Care: None Current Living Situation: Intermediate Current Living Situation Comment: [facility] Other Information That Helps Us Care for You: No Feels Safe at Home: Yes Safety Concerns: Feels Safe At This Time Assistive Devices: Denture - Upper, Oxygen - Continuous and Walker Review of Systems Review of Systems: see HPI Physical Exam Physical Exam: The patient is awake, alert and oriented 3, well developed and well nourished, normocephalic and atraumatic, in no acute distress. Non-toxic appearing. HEENT- EOMI, mucous membranes moist. Hearing grossly intact. Heart-normal S1 and S2. No murmurs, rubs or gallops. Lungs-clear bilaterally, no respiratory distress, no accessory muscle use. On 7l NC. Abdomen-normal bowel sounds and soft. No ascites noted. Tender RLQ. Extremities- no clubbing, cyanosis, or edema. Rheumatologic-normal range of motion. Psychiatric-normal affect. Results & Data Results & Data Vital Signs (Past 12 Hours) Vital Signs Temp Pulse Resp BP Pulse Ox O2 Del Method O2 Flow Rate 02/23/25 22:12 92 Nasal Cannula 3 02/23/25 22:03 117 H 25 H 94 Nasal Cannula 4 02/23/25 21:51 113 H 31 H 02/23/25 21:40 109 H 02/23/25 21:35 144/70 H 02/23/25 21:34 36.4 C 106 H 21 144/70 H 92 Nasal Cannula 4 Laboratory Results Reviewed CBC, CMP, lactate, magnesium, lipase, UA Diagnostic Findings reviewed AP CT and CXR ECG Additional Comments: ordered Code Status & VTE Plan Code Status dnr/dni VTE Prophylaxis Plan VTE Prophylaxis will be ordered: Yes Supervising Physician Co-Signing Physician Notes Attending addendum: I have physically seen this patient, have supervised the PALMER's activities, and agree with the H&P unless as otherwise noted. Assessment and Plan: The patient is a 79-year-old female with a past medical history including COPD on 4 L chronic nasal cannula O2, diabetes mellitus type 2 on chronic insulin, Parkinson's, RLS, irritable bowel syndrome with diarrhea, history recurrent urinary tract infections, mixed stress and urge urinary incontinence, recurrent UTIs, and overactive bladder. She presented to the emergency department with right lower quadrant abdominal pain and poor appetite that began 3 PM this afternoon. Workup in the emergency department included an elevated WBC of 13.24, lactate level 2.7, and CT scan of abdomen pelvis showing mild acute appendicitis. Sepsis/acute appendicitis- CT scan with mild acute appendicitis as noted SIRS: WBC 13.24, increased respiratory rate of 31, increased heart rate 117, lactate 2.7 Give 2 L normal saline bolus for septic protocol Maintenance fluids with LR at 80 mL/h Follow-up blood culture and sensitivity N.p.o. Continue vancomycin IV and Zosyn IV begun in the ED Acetaminophen 1 g IV every 8 hours as needed for mild pain or fever Morphine IV as noted for breakthrough pain Follow serial laboratories as noted Surgery planned for the a.m. COPD with hypoxia- CT findings involving the right lower lobe are suggestive of atelectasis Incentive spirometry Continue home inhalers DuoNebs every 2 hours as needed Baseline nasal cannula is 4 L Diabetes mellitus- Reduction of glargine from 50 to 30 units subcu at bedtime Placed on Accu-Cheks with NovoLog SSI Parkinson's- Resume Sinemet and ropinirole postsurgery when acceptable Mental health- Resume mirtazapine, Lamictal, quetiapine and does venlafaxine postsurgery when acceptable PG Care Time/CCT Total # of Minutes Spent Total Time Spent with Patient: Total time spent is greater than 50% in coordination of care (as documented) at patient's floor/unit and/or counseling patient: Coding Level of Care Code 76966 INT INP/OBS CARE 3/75MIN Diagnoses Sepsis A41.9 Acute appendicitis K35.80 COPD (chronic obstructive pulmonary disease) J44.9 COPD type: unspecified COPD Chronic respiratory failure with hypoxia, on home O2 therapy J96.11; Z99.81 (3) COPD (chronic obstructive pulmonary disease) COPD type: unspecified COPD Qualified Code(s): J44.9 - Chronic obstructive pulmonary disease, unspecified
[2025-02-24 01:12] LABS: Magnesium 2.3 mg/dl (1.7-2.4)
[2025-02-24] MEDS: SODIUM CHLORIDE 0.9% 1,000 ML IV ONE (01:14)
[2025-02-24] MEDS ORDERED: MoRPHine SULFATE 4 MG/ML 1 ML CARP\\VIAL IV PRN (01:21)
[2025-02-24] MEDS ORDERED: MoRPHine SULFATE 2 MG/ML CARP IV PRN (01:21)
[2025-02-24] MEDS ORDERED: ONDANSETRON INJ 2 MG/ML 2 ML VIAL IV PRN ×2 (01:21→10:22)
[2025-02-24] MEDS ORDERED: DOCUSATE SODIUM 100 MG CAP PO PRN (01:21)
[2025-02-24] MEDS ORDERED: SODIUM CHLORIDE 0.65% NA SOLN 45 ML (OCEAN) PRN (01:21)
[2025-02-24] MEDS ORDERED: VANCOMYCIN CONSULT ACTIVE PRN (01:21)
[2025-02-24] MEDS ORDERED: GLUCOSE 10 TAB/TUBE PO PRN (01:21)
[2025-02-24] MEDS ORDERED: DEXTROSE 50% 50 ML SYRINGE IV PRN (01:21)
[2025-02-24] MEDS ORDERED: CARBOHYDRATES FOR HYPOGLYCEMIA PO PRN (01:21)
[2025-02-24] MEDS ORDERED: BENZONATATE 100 MG CAPSULE PO PRN (01:21)
[2025-02-24] MEDS ORDERED: GLUCOSE 40% GEL 15 GM TUBE PO PRN (01:21)
[2025-02-24] MEDS ORDERED: GLUCAGON FOR INJ 1 MG VIAL SQ PRN (01:21)
[2025-02-24] MEDS ORDERED: MELATONIN 3 MG TAB PO PRN (01:21)
[2025-02-24] MEDS ORDERED: ACETAMINOPHEN 1,000 MG/100 ML VIAL IV PRN (01:21)
[2025-02-24] MEDS: VANCOMYCIN HCL 1,750 MG in SODIUM CHLORIDE 0.9% 500 ML IV ONE (01:32)
--- NOTE | 2025-02-24 02:01 | Emergency Department Note ---
History of Present Illness General Chief complaint: Abdominal Pain Stated complaint: right side pain Time Seen by Provider: 02/23/25 21:57 History of Present Illness Maximum Pain Intensity: 8 This is a 79-year-old female presenting to the emergency department via EMS for evaluation of right lower quadrant abdominal pain. Patient's symptoms began earlier today around 2 or 3:00 in the afternoon. The pain has been constant and in the right lower quadrant. She is without nausea or vomiting. No diarrhea. No fever. Patient has not had any [id number] for symptoms. She was last seen in this department about 3 weeks ago where she had multifocal pneumonia with admission. Patient has some chronic respiratory issues, but nothing worse than normal today. She feels like she is using the bathroom as normal. Home Medications Medication Instructions Recorded Confirmed Type atorvastatin 10 mg tablet 10 mg PO HS 11/24/19 02/23/25 History acetaminophen 500 mg tablet 1,000 mg PO Q8H PRN Fever Or Pain 02/09/21 02/23/25 History (Tylenol Extra Strength) latanoprost 0.005 % eye drops 1 drp OPB DAILY 02/09/21 02/23/25 History Oxygen Home #1 ea 04/06/21 12/22/24 Rx Oxygen Home #1 ea 06/28/21 11/11/24 Rx cranberry 500 mg capsule 500 mg PO DAILY #30 caps 10/05/21 02/23/25 Rx ascorbic acid (vitamin C) 1,000 mg 1 g PO DAILY 04/20/22 02/23/25 History capsule tramadol 50 mg tablet 50 mg PO Q4H PRN Pain 09/20/22 02/23/25 History triamcinolone acetonide 0.1 % 1 applic topical Q8H PRN Painful 03/12/23 02/23/25 History topical cream Hemorrhoids ropinirole 1 mg tablet 1 mg PO HS 30 days #30 tabs 08/28/23 02/23/25 Rx arformoterol 15 mcg/2 mL solution 2 ml inhalation Q12H 10/16/23 02/23/25 History for nebulization hydroxyzine HCl 25 mg tablet 25 mg PO Q8H PRN Anxiety 10/16/23 02/23/25 History hydroxyzine pamoate 50 mg capsule 50 mg PO HS 10/16/23 02/23/25 History ipratropium 0.5 mg-albuterol 3 mg 3 ml inhalation Q2H PRN 10/16/23 02/23/25 History (2.5 mg base)/3 mL nebulization sob/wheezing soln loperamide 2 mg capsule 2 mg PO DIRECTED PRN loose stool 10/16/23 02/23/25 History (Anti-Diarrheal (loperamide)) sodium chloride 0.65 % nasal spray 2 spray intranasal Q2H PRN dry 10/16/23 02/23/25 History aerosol (Saline Nasal) nares budesonide 0.5 mg/2 mL suspension 0.5 mg inhalation AMPM 11/02/23 02/23/25 History for nebulization ramelteon 8 mg tablet 8 mg PO HS 11/02/23 02/23/25 History ensifentrine 3 mg/2.5 mL 3 mg (2.5 mL) inhalation BID #150 06/24/24 02/23/25 Rx suspension for nebulization mL (Ohtuvayre) mirtazapine 7.5 mg tablet 7.5 mg PO HS 06/24/24 02/23/25 History insulin glargine 100 unit/mL (3 50 unit subcut HS 08/04/24 02/23/25 History mL) subcutaneous pen (Lantus Solostar U-100 Insulin) menthol 4 % topical gel (Biofreeze 1 applic topical Q4H PRN Muscle 08/04/24 02/23/25 History (menthol)) Pain spironolactone 50 mg tablet 100 mg PO BIDM 08/04/24 02/23/25 History carboxymethylcellulose sodium 1 % 1 drp ophthalmic (eye) DIRECTED 08/11/24 02/23/25 History eye drops (Artificial Tears PRN Dry Eyes (carboxymethylcellulose)) lamotrigine 150 mg tablet 150 mg PO DAILY 10/14/24 02/23/25 History quetiapine 25 mg tablet 37.5 mg PO BID 10/14/24 02/23/25 History revefenacin 175 mcg/3 mL solution 175 mcg inhalation DAILY 12/22/24 02/23/25 History for nebulization vibegron 75 mg tablet (Gemtesa) 75 mg PO DAILY 12/22/24 02/23/25 History aluminum-mag hydroxide-simethicone 60 ml PO Q6H PRN Dyspepsia 01/08/25 02/23/25 History 200 mg-200 mg-20 mg/5 mL oral susp (Yvette-Lanta) calcium carbonate 500 mg PO DAILY 01/08/25 02/23/25 History carbidopa 25 mg-levodopa 100 mg 1.5 tab PO TID 01/08/25 02/23/25 History tablet (Sinemet) eluxadoline 100 mg tablet (Viberzi) 100 mg PO BIDM IBS-D 01/08/25 02/23/25 History ergocalciferol (vitamin D2) 1,250 1,250 mcg PO 2XWK 01/08/25 02/23/25 History mcg (50,000 unit) capsule (Vitamin D2) hydrocortisone 1 % topical cream 1 applic topical Q6H PRN 01/08/25 02/23/25 History (Preparation H Hydrocortisone) Hemorrhoids insulin lispro 100 unit/mL 1 sliding scale dose subcut UD 01/08/25 02/23/25 History subcutaneous solution (Humalog HYPERGYLCEMIA U-100 Insulin) insulin lispro 100 unit/mL 5 unit subcut TIDM 01/08/25 02/23/25 History subcutaneous solution (Humalog U-100 Insulin) menthol 7.5 mg lozenges ([place] 7.5 mg PO Q1H PRN COUGH/SORE THROAT 01/08/25 02/23/25 History Cough Drops) pimavanserin 34 mg capsule 34 mg PO DAILY 01/08/25 02/23/25 History (Nuplazid) sodium chloride-aloe vera nasal 1 applic topical TID 01/08/25 02/23/25 History gel ([place] Saline nasal gel) camphor 4.7 %-eucalyptus oil 1.2 1 applic topical Q8H PRN Congestion 01/18/25 02/23/25 History %-menthol 2.6 % topical ointment (Vicks Vaporub) carbidopa ER 50 mg-levodopa 200 mg 1 tab PO HS 01/18/25 02/23/25 History tablet,extended release carboxymethylcellulose sodium 1 % 1 drp OPB QID 02/23/25 02/23/25 History eye drops (Artificial Tears (carboxymethylcellulose)) desvenlafaxine succinate 50 mg 50 mg PO DAILY 02/23/25 02/23/25 History tablet,extended release 24 hr (Pristiq) guaifenesin 600 mg tablet, 600 mg PO QAM 02/23/25 02/23/25 History extended release 12 hr (Mucinex) ondansetron HCl 8 mg tablet 8 mg PO Q8H PRN NAUSEA/VOMITING 02/23/25 02/23/25 History oxymetazoline 0.05 % nasal spray 2 spray intranasal Q12H PRN Nasal 02/23/25 02/23/25 History (Afrin (oxymetazoline)) Congestion Allergies Allergy/AdvReac Type Severity Reaction Status Date / Time NSAIDS (Non-Steroidal AdvReac Intermediate Gastrointestinal Verified 02/23/25 23:11 Anti-Inflamma Upset Sulfa (Sulfonamide AdvReac Intermediate Gastrointestinal Verified 02/23/25 23:11 Antibiotics) Upset Past Med/Surg History Problem List (Updated 02/24/25 @ 04:31 by Gulshan Scales PA-C) Abdominal pain, RLQ (Acute) Acute appendicitis (Acute) Acute appendicitis Sepsis Multifocal pneumonia (Acute) Acute and chronic respiratory failure (Acute) Dyslipidemia Tendinopathy of rotator cuff Type 2 diabetes mellitus A1C 8.4% 08/03/2024 Cervical radicular pain Triceps strain Gross hematuria PMB (postmenopausal bleeding) COPD (chronic obstructive pulmonary disease) (Acute) Chronic respiratory failure with hypoxia, on home O2 therapy (Acute) Family history non-contributory Hyponatremia Tremor RLS (restless legs syndrome) UTI (urinary tract infection) Anemia Parkinsonian features Encounter for pre-operative examination Pulmonary nodule seen on imaging study Irritable bowel syndrome with diarrhea Hemorrhoids History of recurrent UTIs Parkinson's disease Anxiety Mixed stress and urge urinary incontinence Dyspnea Overactive bladder Recurrent UTI Antibiotic-resistant bacterial infection Medical History DVT prophylaxis Metabolic alkalosis Benzodiazepine dependence Urinary incontinence Vitamin D deficiency Osteoporosis Diverticulosis Rosacea Urethral prolapse Nodule of right lung Glaucoma Sensorineural deafness Breast CA Hypertension Hyperlipidemia Insomnia IBS (irritable bowel syndrome) Hypokalemia Lower extremity edema Surgical History H/O colonoscopy History of esophagogastroduodenoscopy (EGD) Hx of tubal ligation History of tonsillectomy H/O right cataract extraction Status post myringotomy with insertion of tube H/O right mastectomy Family History Other Cancer Colonic polyp Coronary heart disease Hypertension IBS (irritable bowel syndrome) Stroke Social History Smoking Status: Former smoker Tobacco Type: Cigarettes Age Started Using Tobacco: 18; Age Quit Using Tobacco: 69; packs per day: 1.5; Second Hand Exposure: No; Do You Dip or Chew Tobacco: No; Tobacco Cessation Education Requested by Patient: No Hx Alcohol Use: No Hx Substance Use: No Preferred Language: Khmer Communication Ability: Effective Dial Maker Required: No Beliefs That Will Affect Care: None Current Living Situation: Long-Term Current Living Situation Comment: [facility] Other Information That Helps Us Care for You: No Feels Safe at Home: Yes Safety Concerns: Feels Safe At This Time Assistive Devices: Denture - Upper, Oxygen - Continuous and Walker Review of Systems A total of 10 systems reviewed and were otherwise negative Physical Exam Vital Signs Vital Signs - 24 hr 02/23/25 21:34 02/23/25 21:35 02/23/25 21:40 Temperature 36.4 C Temperature Source Oral Pulse Rate 106 H 109 H Pulse Rate from SpO2 Sensor Pulse Rhythm Regular Pulse Strength Normal Respiratory Rate 21 Respiratory Effort / Characteristics Non-Labored Spontaneous Respiratory Depth Normal Respiratory Pattern Regular Blood Pressure 144/70 H 144/70 H Blood Pressure Mean 94 95 Blood Pressure Position Sitting Pulse Oximetry 92 Oxygen Delivery Method Nasal Cannula Oxygen Flow Rate 4 Sepsis Recent Fever Within 48 Hours No Sepsis New/Unexplained Change in Mental Status No Sepsis Action Taken by Nursing No Action Required 02/23/25 21:51 02/23/25 22:03 02/23/25 22:12 Temperature Temperature Source Pulse Rate 113 H 117 H Pulse Rate from SpO2 Sensor 108 H 107 H Pulse Rhythm Pulse Strength Respiratory Rate 31 H 25 H Respiratory Effort / Characteristics Respiratory Depth Respiratory Pattern Blood Pressure Blood Pressure Mean Blood Pressure Position Pulse Oximetry 94 92 Oxygen Delivery Method Nasal Cannula Nasal Cannula Oxygen Flow Rate 4 3 Sepsis Recent Fever Within 48 Hours Sepsis New/Unexplained Change in Mental Status Sepsis Action Taken by Nursing 02/23/25 22:36 02/23/25 23:07 02/23/25 23:30 Temperature Temperature Source Pulse Rate 117 H 96 H Pulse Rate from SpO2 Sensor 133 H 96 H Pulse Rhythm Pulse Strength Respiratory Rate 18 16 Respiratory Effort / Characteristics Respiratory Depth Respiratory Pattern Blood Pressure 134/74 125/69 Blood Pressure Mean 96 87 Blood Pressure Position Pulse Oximetry 92 96 93 Oxygen Delivery Method Oxymask Oxymask Oxymask Oxygen Flow Rate 4 4 4 Sepsis Recent Fever Within 48 Hours Sepsis New/Unexplained Change in Mental Status Sepsis Action Taken by Nursing 02/24/25 00:00 02/24/25 00:30 Temperature Temperature Source Pulse Rate 93 H 93 H Pulse Rate from SpO2 Sensor 95 H Pulse Rhythm Pulse Strength Respiratory Rate 22 27 H Respiratory Effort / Characteristics Respiratory Depth Respiratory Pattern Blood Pressure 142/81 H 156/97 H Blood Pressure Mean 101 113 Blood Pressure Position Pulse Oximetry 96 100 Oxygen Delivery Method Oxymask Oxymask Oxygen Flow Rate 4 3 Sepsis Recent Fever Within 48 Hours Sepsis New/Unexplained Change in Mental Status Sepsis Action Taken by Nursing VITALS: Vitals are noted on the nurse's note and reviewed by myself. Vital signs stable. GENERAL: Well-developed, well-nourished, white female, who is really uncomfortable and splinting her right lower quadrant with her right hand. HEAD: Normocephalic atraumatic. NECK: Supple without nuchal rigidity. No lymphadenopathy. No thyromegaly. Cervical spine is nontender. HEART: Regular rate and rhythm without murmurs gallops or rubs. LUNGS: Clear to auscultation bilaterally without wheezes, rales or rhonchi. No retractions or accessory muscle use. ABDOMEN: Positive normal bowel sounds x 4. Soft, with reproducible mid and right lower quadrant tenderness. Patient is guarding the right lower quadrant. MUSCULOSKELETAL: No muscle atrophy, erythema, or edema noted. Full range of motion in all extremities. No tenderness to palpation. NEURO: Patient was alert and oriented to person place and time. CN II through XII grossly intact. Course Administered Medications Lactated Ringer's (Lr) 1,000 mls @ 80 mls/hr IV .[id number] [facility] Stop: 02/24/25 13:14 Last Admin: 02/24/25 03:00 Dose: 80 mls/hr Documented By: ANITA Piperacillin Sod/Tazobactam Sod (Zosyn) 4.5 gm in 100 mls @ 25 mls/hr IV Q8H [facility]; Protocol Stop: 03/06/25 05:59 Last Admin: 02/24/25 05:33 Dose: 25 mls/hr Documented By: LAURY Insulin Aspart (Insulin Aspart Per Unit Charge) 0 units SC Q6 [facility] Stop: 03/26/25 05:59 Last Admin: 02/24/25 05:55 Dose: Not Given Documented By: LAURY Co-signed By: MAVIS Discontinued Medications Benzonatate (Benzonatate 100 Mg Capsule) 100 mg PO NOW ONE Stop: 02/24/25 04:50 Last Admin: 02/24/25 05:29 Dose: 100 mg Documented By: LAURY Sodium Chloride (Nss) 1,000 mls @ 999 mls/hr IV .Q1H1M [facility] Stop: 02/24/25 01:00 Last Infusion: 02/24/25 01:46 Dose: Infused Documented By: Admin: 02/24/25 00:18 Dose: 999 mls/hr Documented By: Infusion: 02/24/25 00:08 Dose: Infused Documented By: Admin: 02/23/25 23:07 Dose: 999 mls/hr Documented By: ANITA Vancomycin HCl 1,750 mg/ (Sodium Chloride) 535 mls @ 200 mls/hr IV NOW ONE Stop: 02/24/25 01:45 Last Infusion: 02/24/25 04:15 Dose: Infused Documented By: Admin: 02/24/25 01:32 Dose: 200 mls/hr Documented By: ANITA Piperacillin Sod/Tazobactam Sod (Zosyn) 4.5 gm in 100 mls @ 200 mls/hr IV NOW ONE; Protocol Stop: 02/23/25 23:34 Last Infusion: 02/24/25 01:14 Dose: Infused Documented By: Admin: 02/24/25 00:16 Dose: 200 mls/hr Documented By: ANITA Sodium Chloride (Nss) 1,000 mls @ 999 mls/hr IV .Q1H1M ONE Stop: 02/24/25 01:41 Last Admin: 02/24/25 01:14 Dose: Not Given Documented By: ANITA Acetaminophen (Ofirmev) 1,000 mg in 100 mls @ 400 mls/hr IV NOW STA Stop: 02/24/25 01:27 Last Infusion: 02/24/25 03:30 Dose: Infused Documented By: Admin: 02/24/25 02:35 Dose: 400 mls/hr Documented By: ANITA Ioversol (Optiray 320 100ml) 100 ml IV ONCE ONE Stop: 02/23/25 22:57 Last Admin: 02/23/25 22:57 Dose: 93 ml Documented By: HEATHER Morphine Sulfate (Morphine Sulfate 4 Mg/Ml 1 Ml Carp\Vial) 4 mg IV Q30M PRN PRN Reason: Pain Stop: 03/09/25 22:05 Last Admin: 02/23/25 23:07 Dose: 4 mg Documented By: ANITA Ondansetron HCl (Ondansetron Inj 2 Mg/Ml 2 Ml Vial) 4 mg IV NOW STA Stop: 02/23/25 22:07 Last Admin: 02/23/25 23:07 Dose: 4 mg Documented By: ANITA Medical Decision Making Differential Diagnosis Differential diagnosis: Etiologies such as biliary colic, cholecystitis, hepatitis, pancreatitis, cardiac disease, pancreatitis, gastritis, peptic ulcer disease, appendicitis, cystitis, diverticulitis, mesenteric ischemia, inflammatory bowel disease, ileus, bowel obstruction, testicular/adnexal torsion, aortic pathology, shingles, as well as others were considered Laboratory Data 02/24/25 04:15 02/24/25 04:15 Lab Results 02/23/25 02/23/25 02/23/25 Range/Units 22:12 22:38 23:00 WBC 13.24 H (4.8-10.8) K/ul RBC 4.73 (4.20-5.40) M/uL Hgb 12.6 (12.0-16.0) g/dl Hct 40.3 (37.0-47.0) % MCV 85.2 (80.0-100.0) fL MCH 26.6 (25.0-34.0) pg MCHC 31.3 L (32.0-36.0) g/dL RDW Std Deviation 42.6 (36.4-46.3) fL RDW Coeff of Zen 13.7 (11.5-14.5) % Plt Count 222 (130-400) K/uL MPV 10.6 (9.4-12.4) fL Immature Gran % (Auto) 0.7 % Neut % (Auto) 78.2 % Lymph % (Auto) 13.4 % [place] % (Auto) 6.2 % Eos % (Auto) 1.1 % Baso % (Auto) 0.4 % Neut # (Auto) 10.36 H (1.40-6.50) K/uL Lymph # (Auto) 1.78 (1.20-3.40) K/uL [place] # (Auto) 0.82 H (0.11-0.59) K/uL Eos # (Auto) 0.14 (0.00-0.50) K/uL Baso # (Auto) 0.05 (0.00-0.20) K/uL Immature Gran # (Auto) 0.09 (0.01-0.20) K/uL Sodium 136 (136-145) mmol/L Potassium 4.7 (3.5-5.1) mmol/L Chloride 97 L (98-107) mmol/L Carbon Dioxide 33 H (21-32) mmol/L Anion Gap 6 (3-11) BUN 7 (6-23) mg/dl Creatinine 1.03 (0.6-1.2) mg/dl Est Cr Clr Drug Dosing 50.0 ml/min eGFR 56.00 BUN/Creatinine Ratio 6.8 L (10-20) Glucose 198 H (70-99(Fasting)) mg/dl Lactate 2.7 H* (0.4-2.0) mmol/L Calcium 9.2 (8.6-10.3) mg/dl Magnesium 2.3 (1.7-2.4) mg/dl Total Bilirubin 0.3 (0.2-1.0) mg/dl AST 13 (13-39) U/L ALT 8 (7-52) U/L Alkaline Phosphatase 62 (34-104) U/L Total Protein 7.1 (6.0-8.3) gm/dl Albumin 4.2 (3.4-5.0) gm/dl Globulin 2.9 (2.5-4.0) gm/dl Albumin/Globulin Ratio 1.4 (0.9-2) Lipase 13 (11-82) U/L Urine Color Yellow Urine Appearance Clear (Clear) Urine pH 8.5 H (4.5-7.5) Ur Specific [place] 1.009 (1.000-1.030) Urine Protein Negative (Negative) Urine Glucose (UA) Negative (Negative) Urine Ketones Negative (Negative) Urine Blood Negative (Negative) Urine Nitrite Negative (Negative) Urine Bilirubin Negative (Negative) Urine Urobilinogen Negative (Negative) Ur Leukocyte Esterase 3+ H (Negative) Urine WBC (Auto) >50 H (0-5) /hpf Urine RBC (Auto) 0-2 (0-2) /hpf U Hyaline Cast (Auto) 0-2 (0-2) /lpf U Epithel Cells (Auto) 0-2 (0-2) /hpf Urine Bacteria (Auto) None Seen (None Seen) Urine Comment Imaging Data Radiologist's Impression: Abdomen/Pelvis CT 02/23/25 21:57 CR Exam(s): CT ABDOMEN + PELVIS With Contrast IV Amt: 93 ML OPTIRAY 320 EXAM: CT Abdomen and Pelvis With Intravenous Contrast CLINICAL HISTORY: Reason for exam: RLQ abd pain. TECHNIQUE: Axial computed tomography images of the abdomen and pelvis with intravenous contrast. CTDI is 27.62 mGy and DLP is 1230.95 mGy-cm. Automated exposure control was utilized for the study. A dose lowering technique was utilized adhering to the principles of ALARA. CONTRAST: Patient received 93 ML OPTIRAY 320 of IV contrast COMPARISON: 10/21/2024 FINDINGS: Lung bases: Mild emphysematous changes in the lung bases with 3 cm area of patchy infiltrate in the right lower lobe suspicious for pneumonia or atelectasis, new since previous. ABDOMEN: Liver: Unremarkable. No mass. Gallbladder and bile ducts: Unremarkable. No calcified stones. No ductal dilation. Pancreas: Unremarkable. No mass. No ductal dilation. Spleen: Unremarkable. No splenomegaly. Adrenals: Unremarkable. No mass. Kidneys and ureters: Unremarkable. No solid mass. No hydronephrosis. Stomach and bowel: Diverticulosis of the sigmoid colon without evidence of acute diverticulitis. No obstruction. PELVIS: Appendix: There is an approximately 3.8 x 1.1 cm appendicolith in the base of the appendix. The appendix is dilated measuring 1.4 cm with slight inflammation surrounding the base suggesting mild acute appendicitis. No signs of rupture or abscess. Bladder: Unremarkable. No mass. Reproductive: Unremarkable as visualized. ABDOMEN and PELVIS: Intraperitoneal space: Unremarkable. No free air. No significant fluid collection. Bones/joints: Mild degenerative changes throughout the spine. No acute fracture or subluxation. Soft tissues: Unremarkable. Vasculature: The abdominal aorta is heavily calcified but nondilated. Lymph nodes: Unremarkable. No enlarged lymph nodes. IMPRESSION: 1. There is an approximately 3.8 x 1.1 cm appendicolith in the base of the appendix. The appendix is dilated measuring 1.4 cm with slight inflammation surrounding the base suggesting mild acute appendicitis. No signs of rupture or abscess. 2. Mild emphysematous changes in the lung bases with 3 cm area of patchy infiltrate in the right lower lobe suspicious for pneumonia or atelectasis, new since previous. Communications: Call Doctor Appendicitis Electronically signed by: Mayo Pollard MD 02/24/25 00:09 AM Chest X-Ray 02/23/25 22:06 Exam(s): XR CXR 1 VIEW EXAM: XR Chest, 1 View CLINICAL HISTORY: Reason for exam: COPD, recent pneumonia. TECHNIQUE: Frontal view of the chest. COMPARISON: 02/04/2025 FINDINGS: Lungs: Lungs are borderline hyperinflated with coarse interstitial markings throughout the mid to lower lungs, similar to previous. No new infiltrates are identified. Pleural space: Unremarkable. No pneumothorax. Heart: Unremarkable. No cardiomegaly. Mediastinum: Unremarkable. Normal mediastinal contour. Bones/joints: [id number] degenerative changes in the left shoulder, unchanged. No acute fracture. Soft tissues: Surgical clips in the right axilla. Vasculature: The thoracic aorta is mildly calcified. IMPRESSION: Lungs are borderline hyperinflated with coarse interstitial markings throughout the mid to lower lungs, similar to previous. No new infiltrates are identified. Electronically signed by: Mayo Pollard MD 02/24/25 00:10 AM MDM Narrative Physical exam and history were performed. Nursing notes, EMR, and Medication List were personally reviewed. No social concerns were identified as barriers to patients care. History was provided by the Patient and EMS. Patient appears to have right lower quadrant abdominal pain bringing her to the ER. She is quite uncomfortable on presentation and tender in the right lower quadrant. Patient was given IV morphine and IV Zofran for comfort. Patient was seen during a period of very high ER volume and acuity with extended wait times. Nursing protocol order have been performed and some of these are available for my review at the time of patient encounter. Patient's blood work is as above and was reviewed. She does have an elevated white count of almost 13,000. She does not have significant anemia or gross electrolyte imbalance. Lipase and transaminases not diagnostic. Initial lactic is elevated at 2.7, and blood culture x 1 was gathered as we difficulty getting a second blood culture due to the patient's vascular status. Patient was given IV vancomycin and IV Zosyn. She was started on a sepsis fluid bolus. CT scan was independently reviewed by myself and radiology. Imagine also reviewed with my attending. Patient appears to have acute appendicitis Escalation of care was considered, and felt to be necessary. Case reviewed with my attending physician. Case was also then discussed with the on-call surgical team and the on-call hospitalist team. Please see the specialist dictations for further patient course, plan, disposition. The chart was completed utilizing [employer] Voice Recognition Software. Grammatical errors, random word insertions, pronoun errors, and incomplete sentences are an occasional consequence of this system due to software limitations, ambient noise, and hardware issues. Any formal questions or concerns about the content, text, or information contained within the body of this dictation should be directly addressed to the provider for clarification. Impression & Plan Acute appendicitis, Abdominal pain, RLQ Discharge Plan Visit Data Chief Complaint: Abdominal Pain Stated Complaint: right side pain ED Provider: Cristopher Dowling ED Midlevel Provider: Gulshan Scales Discharge Problem: Acute appendicitis, Abdominal pain, RLQ Patient Disposition: Being Evaluated by Hospitalist Condition: Fair Discharge Instructions Interventions: ED Discharge Assessment Last Done: 02/24/25 01:20 ED DC CONDITION Conditon at Discharge Condition at Discharge: Fair Addendum February 24, 2025 06:59 I was consulted by the Advanced Practice Provider and was substantively involved in the patient's visit.This includes aspects of the HPI, MDM, diagnostic interpretations, and disposition/plan. I discussed the case with the PALMER and agree with the findings and plan as documented in PALMER Loyda's note.
[2025-02-24] MEDS: ACETAMINOPHEN 1,000 MG/100 ML VIAL IV STA (02:35)
[2025-02-24] MEDS: LACTATED RINGER'S 1,000 ML IV SCH ×2 (03:00→12:43)
[2025-02-24 04:53] LABS: Hematocrit (blood only) 33.9 % (37.0-47.0); Hemoglobin 10.6 g/dl (12.0-16.0); Immature Granulocytes # (auto) 0.08 K/uL (0.01-0.20); Immature Granulocytes % (auto) 0.7 %; Mean Corpuscular Hemoglobin 27.5 pg (25.0-34.0); Mean Corpuscular Volume 87.8 fL (80.0-100.0); Platelet Count 187 K/uL (130-400); RDW Standard Deviation 43.4 fL (36.4-46.3); Red Blood Count 3.86 M/uL (4.20-5.40); White Blood Count 12.23 K/ul (4.8-10.8)
[2025-02-24 05:21] LABS: Alanine Aminotransferase 8.0 U/L (7-52); Albumin Globulin Ratio 1.5 (0.9-2); Alkaline Phosphatase 50.0 U/L (34-104); Anion Gap 5.0 (3-11); Bilirubin,Total 0.3 mg/dl (0.2-1.0); Blood Urea Nitrogen 6.0 mg/dl (6-23); Calcium 7.0 mg/dl (8.6-10.3); Carbon Dioxide 27.0 mmol/L (21-32); Chloride 108.0 mmol/L (98-107); Creatinine Clr Calc Pharmacy 72.6 ml/min; Globulin 2.2 gm/dl (2.5-4.0); Glucose 131.0 mg/dl (70-99(Fasting)); Magnesium 1.9 mg/dl (1.7-2.4); Potassium 4.2 mmol/L (3.5-5.1); Sodium 140.0 mmol/L (136-145); Total Protein 5.6 gm/dl (6.0-8.3)
[2025-02-24] MEDS: BENZONATATE 100 MG CAPSULE PO ONE (05:29)
[2025-02-24] MEDS: PIPERACILLIN/TAZOBACTAM 4.5 GM/100 ML BAG IV SCH (05:33)
[2025-02-24] MEDS: INSULIN ASPART PER UNIT CHARGE SC SCH (05:55)
[2025-02-24] MEDS: BUDESONIDE 0.5 MG/2 ML VIAL (PULMICORT) INH SCH (07:00)
[2025-02-24] MEDS: FORMOTEROL 20 MCG/2 ML VIAL INH SCH (07:00)
[2025-02-24] MEDS ORDERED: ONDANSETRON INJ 2 MG/ML 2 ML VIAL ONE (08:23)
[2025-02-24] MEDS ORDERED: MIDAZOLAM HCL 1 MG/ML 2ML VIAL ONE (08:23)
[2025-02-24] MEDS ORDERED: PROPOFOL IV EMULSION 10 MG/ML 20 ML VIAL IV ONE ×2 (08:23→10:22)
[2025-02-24] MEDS ORDERED: ROCURONIUM BROMIDE 10 MG/ML 5 ML VIAL IV ONE ×2 (08:23→10:22)
[2025-02-24] MEDS ORDERED: DEXAMETHASONE SOD INJ 4 MG/ML VIAL ONE (08:23)
[2025-02-24] MEDS ORDERED: SUGAMMADEX SODIUM 200 MG/2 ML VIAL IV ONE ×2 (08:24→10:29)
--- NOTE | 2025-02-24 08:28 | Surgery Consultation ---
Date of Consultation February 24, 2025 Assessment & Plan (1) Acute appendicitis: 79-year-old woman with acute appendicitis. We discussed the risk benefits of a laparoscopic appendectomy. All her questions were answered and she is agreeable to proceed. Will take her to the operating room at the earliest convenience. All questions were answered, And consent has been obtained. History of Present Illness Reason for Consultation: Appendicitis Requesting Physician: Jean Marroquin DO Attending Physician: Jean Marroquin DO History of Present Illness 79-year-old presents with 1 day history of diffuse lower abdominal pain which then focalized to the right lower quadrant. Accompanied by nausea and vomiting. Denies fevers or chills. Has never had pain like this in the past. She has only had a prior laparoscopy. CT scan demonstrates early acute appendicitis with large appendicolith at the base of the appendix. Allergies Allergy/AdvReac Type Severity Reaction Status Date / Time NSAIDS (Non-Steroidal AdvReac Intermediate Gastrointestinal Verified 02/23/25 23:11 Anti-Inflamma Upset Sulfa (Sulfonamide AdvReac Intermediate Gastrointestinal Verified 02/23/25 23:11 Antibiotics) Upset Home Medications Medication Instructions Recorded Confirmed Type atorvastatin 10 mg tablet 10 mg PO HS 11/24/19 02/23/25 History acetaminophen 500 mg tablet 1,000 mg PO Q8H PRN Fever Or Pain 02/09/21 02/23/25 History (Tylenol Extra Strength) latanoprost 0.005 % eye drops 1 drp OPB DAILY 02/09/21 02/23/25 History Oxygen Home #1 ea 04/06/21 12/22/24 Rx Oxygen Home #1 ea 06/28/21 11/11/24 Rx cranberry 500 mg capsule 500 mg PO DAILY #30 caps 10/05/21 02/23/25 Rx ascorbic acid (vitamin C) 1,000 mg 1 g PO DAILY 04/20/22 02/23/25 History capsule tramadol 50 mg tablet 50 mg PO Q4H PRN Pain 09/20/22 02/23/25 History triamcinolone acetonide 0.1 % 1 applic topical Q8H PRN Painful 03/12/23 02/23/25 History topical cream Hemorrhoids ropinirole 1 mg tablet 1 mg PO HS 30 days #30 tabs 08/28/23 02/23/25 Rx arformoterol 15 mcg/2 mL solution 2 ml inhalation Q12H 10/16/23 02/23/25 History for nebulization hydroxyzine HCl 25 mg tablet 25 mg PO Q8H PRN Anxiety 10/16/23 02/23/25 History hydroxyzine pamoate 50 mg capsule 50 mg PO HS 10/16/23 02/23/25 History ipratropium 0.5 mg-albuterol 3 mg 3 ml inhalation Q2H PRN 10/16/23 02/23/25 History (2.5 mg base)/3 mL nebulization sob/wheezing soln loperamide 2 mg capsule 2 mg PO DIRECTED PRN loose stool 10/16/23 02/23/25 History (Anti-Diarrheal (loperamide)) sodium chloride 0.65 % nasal spray 2 spray intranasal Q2H PRN dry 10/16/23 02/23/25 History aerosol (Saline Nasal) nares budesonide 0.5 mg/2 mL suspension 0.5 mg inhalation AMPM 11/02/23 02/23/25 History for nebulization ramelteon 8 mg tablet 8 mg PO HS 11/02/23 02/23/25 History ensifentrine 3 mg/2.5 mL 3 mg (2.5 mL) inhalation BID #150 06/24/24 02/23/25 Rx suspension for nebulization mL (Ohtuvayre) mirtazapine 7.5 mg tablet 7.5 mg PO HS 06/24/24 02/23/25 History insulin glargine 100 unit/mL (3 50 unit subcut HS 08/04/24 02/23/25 History mL) subcutaneous pen (Lantus Solostar U-100 Insulin) menthol 4 % topical gel (Biofreeze 1 applic topical Q4H PRN Muscle 08/04/24 02/23/25 History (menthol)) Pain spironolactone 50 mg tablet 100 mg PO BIDM 08/04/24 02/23/25 History carboxymethylcellulose sodium 1 % 1 drp ophthalmic (eye) DIRECTED 08/11/24 02/23/25 History eye drops (Artificial Tears PRN Dry Eyes (carboxymethylcellulose)) lamotrigine 150 mg tablet 150 mg PO DAILY 10/14/24 02/23/25 History quetiapine 25 mg tablet 37.5 mg PO BID 10/14/24 02/23/25 History revefenacin 175 mcg/3 mL solution 175 mcg inhalation DAILY 12/22/24 02/23/25 History for nebulization vibegron 75 mg tablet (Gemtesa) 75 mg PO DAILY 12/22/24 02/23/25 History aluminum-mag hydroxide-simethicone 60 ml PO Q6H PRN Dyspepsia 01/08/25 02/23/25 History 200 mg-200 mg-20 mg/5 mL oral susp (Yvette-Lanta) calcium carbonate 500 mg PO DAILY 01/08/25 02/23/25 History carbidopa 25 mg-levodopa 100 mg 1.5 tab PO TID 01/08/25 02/23/25 History tablet (Sinemet) eluxadoline 100 mg tablet (Viberzi) 100 mg PO BIDM IBS-D 01/08/25 02/23/25 History ergocalciferol (vitamin D2) 1,250 1,250 mcg PO 2XWK 01/08/25 02/23/25 History mcg (50,000 unit) capsule (Vitamin D2) hydrocortisone 1 % topical cream 1 applic topical Q6H PRN 01/08/25 02/23/25 History (Preparation H Hydrocortisone) Hemorrhoids insulin lispro 100 unit/mL 1 sliding scale dose subcut UD 01/08/25 02/23/25 History subcutaneous solution (Humalog HYPERGYLCEMIA U-100 Insulin) insulin lispro 100 unit/mL 5 unit subcut TIDM 01/08/25 02/23/25 History subcutaneous solution (Humalog U-100 Insulin) menthol 7.5 mg lozenges ([employer] 7.5 mg PO Q1H PRN COUGH/SORE THROAT 01/08/25 02/23/25 History Cough Drops) pimavanserin 34 mg capsule 34 mg PO DAILY 01/08/25 02/23/25 History (Nuplazid) sodium chloride-aloe vera nasal 1 applic topical TID 01/08/25 02/23/25 History gel (Gerton Saline nasal gel) camphor 4.7 %-eucalyptus oil 1.2 1 applic topical Q8H PRN Congestion 01/18/25 02/23/25 History %-menthol 2.6 % topical ointment (Vicks Vaporub) carbidopa ER 50 mg-levodopa 200 mg 1 tab PO HS 01/18/25 02/23/25 History tablet,extended release carboxymethylcellulose sodium 1 % 1 drp OPB QID 02/23/25 02/23/25 History eye drops (Artificial Tears (carboxymethylcellulose)) desvenlafaxine succinate 50 mg 50 mg PO DAILY 02/23/25 02/23/25 History tablet,extended release 24 hr (Pristiq) guaifenesin 600 mg tablet, 600 mg PO QAM 02/23/25 02/23/25 History extended release 12 hr (Mucinex) ondansetron HCl 8 mg tablet 8 mg PO Q8H PRN NAUSEA/VOMITING 02/23/25 02/23/25 History oxymetazoline 0.05 % nasal spray 2 spray intranasal Q12H PRN Nasal 02/23/25 02/23/25 History (Afrin (oxymetazoline)) Congestion Patient History Medical History DVT prophylaxis Metabolic alkalosis Benzodiazepine dependence Urinary incontinence Vitamin D deficiency Osteoporosis Diverticulosis Rosacea Urethral prolapse Nodule of right lung Glaucoma Sensorineural deafness Breast CA Hypertension Hyperlipidemia Insomnia IBS (irritable bowel syndrome) Hypokalemia Lower extremity edema Surgical History H/O colonoscopy History of esophagogastroduodenoscopy (EGD) Hx of tubal ligation History of tonsillectomy H/O right cataract extraction Status post myringotomy with insertion of tube H/O right mastectomy Family History Other Cancer Colonic polyp Coronary heart disease Hypertension IBS (irritable bowel syndrome) Stroke Social History Smoking Status: Former smoker Tobacco Type: Cigarettes Age Started Using Tobacco: 18; Age Quit Using Tobacco: 69; packs per day: 1.5; Second Hand Exposure: No; Do You Dip or Chew Tobacco: No; Tobacco Cessation Education Requested by Patient: No Hx Alcohol Use: No Hx Substance Use: No Preferred Language: Kiswahili Communication Ability: Effective Heel Sewer Required: No Beliefs That Will Affect Care: None Current Living Situation: [facility] Current Living Situation Comment: [facility] Other Information That Helps Us Care for You: No Feels Safe at Home: Yes Safety Concerns: Feels Safe At This Time Assistive Devices: Denture - Upper, Oxygen - Continuous and Walker Review of Systems Review of Systems: All systems reviewed & are unremarkable except as noted in HPI & below Physical Exam Constitutional: WD/WN, vitals as above Eyes: PERRL, conjunctivae normal, anicteric sclerae Neck: trachea midline, no thyromegaly Respiratory: normal respiratory effort; no respiratory distress and no labored breathing Cardiovascular: Rate/Rhythm: regular rhythm and + tachycardic Gastrointestinal (Abdomen): Inspection/Auscultation: abdomen normal to inspection; abdomen not distended Percussion/Palpation: + abdomen tender ( RLQ) and abdomen soft; no guarding and abdomen not rigid positive Rovsing's sign Skin: no rashes, warm and dry Psychiatric: A+Ox3, euthymic affect Results & Data Vital Signs (Past 12 Hours) Vital Signs Temp Pulse Pulse Resp BP BP Pulse Ox 02/24/25 07:44 108 H 22 94 02/24/25 07:09 88 18 02/24/25 07:09 90 21 130/82 94 02/24/25 07:00 88 18 97 02/24/25 06:27 81 15 97 02/24/25 06:00 112/62 02/24/25 06:00 112/62 02/24/25 05:54 98 H 22 97 02/24/25 05:30 103 H 23 02/24/25 05:06 91 H 20 100 02/24/25 04:42 02/24/25 04:30 89 16 98 02/24/25 04:06 93 H 17 98 02/24/25 04:00 122/73 02/24/25 04:00 122/73 02/24/25 03:48 100 H 17 98 02/24/25 03:42 105 H 21 97 02/24/25 03:31 02/24/25 03:05 110 H 23 141/75 H 98 02/24/25 02:00 88 18 136/74 99 02/24/25 01:48 02/24/25 01:48 90 20 137/83 99 02/24/25 01:47 02/24/25 01:19 109 H 02/24/25 01:00 110 H 19 153/93 H 99 02/24/25 00:30 93 H 27 H 156/97 H 100 02/24/25 00:00 93 H 22 142/81 H 96 02/23/25 23:30 96 H 16 125/69 93 02/23/25 23:07 117 H 18 134/74 96 02/23/25 22:36 92 02/23/25 22:12 92 02/23/25 22:03 117 H 25 H 94 02/23/25 21:51 113 H 31 H 02/23/25 21:40 109 H 02/23/25 21:35 144/70 H 02/23/25 21:34 36.4 C 106 H 21 144/70 H 92 Pulse Ox O2 Del Method O2 Del Method O2 Flow Rate O2 Flow Rate 02/24/25 07:44 Nasal Cannula 4 02/24/25 07:09 02/24/25 07:09 Nebulizer 10 02/24/25 07:00 Oxymask 6 02/24/25 06:27 02/24/25 06:00 02/24/25 06:00 02/24/25 05:54 02/24/25 05:30 02/24/25 05:06 Oxymask 6 02/24/25 04:42 Oxymask 6 02/24/25 04:30 02/24/25 04:06 02/24/25 04:00 02/24/25 04:00 02/24/25 03:48 02/24/25 03:42 02/24/25 03:31 Oxymask 02/24/25 03:05 Oxymask 4 02/24/25 02:00 Oxymask 4 02/24/25 01:48 Oxymask 4 02/24/25 01:48 Oxymask 4 02/24/25 01:47 99 Oxymask 4 02/24/25 01:19 02/24/25 01:00 Oxymask 3 02/24/25 00:30 Oxymask 3 02/24/25 00:00 Oxymask 4 02/23/25 23:30 Oxymask 4 02/23/25 23:07 Oxymask 4 02/23/25 22:36 Oxymask 4 02/23/25 22:12 Nasal Cannula 3 02/23/25 22:03 Nasal Cannula 4 02/23/25 21:51 02/23/25 21:40 02/23/25 21:35 02/23/25 21:34 Nasal Cannula 4 Laboratory Results 02/24/25 02/24/25 02/24/25 Range/Units 04:15 03:58 01:38 WBC 12.23 H (4.8-10.8) K/ul RBC 3.86 L (4.20-5.40) M/uL Hgb 10.6 L (12.0-16.0) g/dl Hct 33.9 L (37.0-47.0) % MCV 87.8 (80.0-100.0) fL MCH 27.5 (25.0-34.0) pg MCHC 31.3 L (32.0-36.0) g/dL RDW Std Deviation 43.4 (36.4-46.3) fL RDW Coeff of Zen 13.6 (11.5-14.5) % Plt Count 187 (130-400) K/uL MPV 10.7 (9.4-12.4) fL Immature Gran % (Auto) 0.7 % Neut % (Auto) 81.5 % Lymph % (Auto) 11.7 % Starr % (Auto) 5.2 % Eos % (Auto) 0.7 % Baso % (Auto) 0.2 % Neut # (Auto) 9.98 H (1.40-6.50) K/uL Lymph # (Auto) 1.43 (1.20-3.40) K/uL Starr # (Auto) 0.63 H (0.11-0.59) K/uL Eos # (Auto) 0.08 (0.00-0.50) K/uL Baso # (Auto) 0.03 (0.00-0.20) K/uL Immature Gran # (Auto) 0.08 (0.01-0.20) K/uL Sodium 140 (136-145) mmol/L Potassium 4.2 (3.5-5.1) mmol/L Chloride 108 H (98-107) mmol/L Carbon Dioxide 27 (21-32) mmol/L Anion Gap 5 (3-11) BUN 6 (6-23) mg/dl Creatinine 0.71 D (0.6-1.2) mg/dl Est Cr Clr Drug Dosing 72.6 ml/min eGFR 87.52 BUN/Creatinine Ratio 8.5 L (10-20) Glucose 131 H (70-99(Fasting)) mg/dl POC Glucose 136 H (70-99) mg/dl Lactate 1.2 (0.4-2.0) mmol/L Calcium 7.0 L D (8.6-10.3) mg/dl Magnesium 1.9 (1.7-2.4) mg/dl Total Bilirubin 0.3 (0.2-1.0) mg/dl AST 10 L (13-39) U/L ALT 8 (7-52) U/L Alkaline Phosphatase 50 (34-104) U/L Total Protein 5.6 L D (6.0-8.3) gm/dl Albumin 3.4 (3.4-5.0) gm/dl Globulin 2.2 L (2.5-4.0) gm/dl Albumin/Globulin Ratio 1.5 (0.9-2) Lipase (11-82) U/L Urine Color Urine Appearance (Clear) Urine pH (4.5-7.5) Ur Specific Maddock (1.000-1.030) Urine Protein (Negative) Urine Glucose (UA) (Negative) Urine Ketones (Negative) Urine Blood (Negative) Urine Nitrite (Negative) Urine Bilirubin (Negative) Urine Urobilinogen (Negative) Ur Leukocyte Esterase (Negative) Urine WBC (Auto) (0-5) /hpf Urine RBC (Auto) (0-2) /hpf U Hyaline Cast (Auto) (0-2) /lpf U Epithel Cells (Auto) (0-2) /hpf Urine Bacteria (Auto) (None Seen) Urine Comment 02/23/25 02/23/25 02/23/25 Range/Units 23:00 22:38 22:12 WBC 13.24 H (4.8-10.8) K/ul RBC 4.73 (4.20-5.40) M/uL Hgb 12.6 (12.0-16.0) g/dl Hct 40.3 (37.0-47.0) % MCV 85.2 (80.0-100.0) fL MCH 26.6 (25.0-34.0) pg MCHC 31.3 L (32.0-36.0) g/dL RDW Std Deviation 42.6 (36.4-46.3) fL RDW Coeff of Zen 13.7 (11.5-14.5) % Plt Count 222 (130-400) K/uL MPV 10.6 (9.4-12.4) fL Immature Gran % (Auto) 0.7 % Neut % (Auto) 78.2 % Lymph % (Auto) 13.4 % Starr % (Auto) 6.2 % Eos % (Auto) 1.1 % Baso % (Auto) 0.4 % Neut # (Auto) 10.36 H (1.40-6.50) K/uL Lymph # (Auto) 1.78 (1.20-3.40) K/uL Starr # (Auto) 0.82 H (0.11-0.59) K/uL Eos # (Auto) 0.14 (0.00-0.50) K/uL Baso # (Auto) 0.05 (0.00-0.20) K/uL Immature Gran # (Auto) 0.09 (0.01-0.20) K/uL Sodium 136 (136-145) mmol/L Potassium 4.7 (3.5-5.1) mmol/L Chloride 97 L (98-107) mmol/L Carbon Dioxide 33 H (21-32) mmol/L Anion Gap 6 (3-11) BUN 7 (6-23) mg/dl Creatinine 1.03 (0.6-1.2) mg/dl Est Cr Clr Drug Dosing 50.0 ml/min eGFR 56.00 BUN/Creatinine Ratio 6.8 L (10-20) Glucose 198 H (70-99(Fasting)) mg/dl POC Glucose (70-99) mg/dl Lactate 2.7 H* (0.4-2.0) mmol/L Calcium 9.2 (8.6-10.3) mg/dl Magnesium 2.3 (1.7-2.4) mg/dl Total Bilirubin 0.3 (0.2-1.0) mg/dl AST 13 (13-39) U/L ALT 8 (7-52) U/L Alkaline Phosphatase 62 (34-104) U/L Total Protein 7.1 (6.0-8.3) gm/dl Albumin 4.2 (3.4-5.0) gm/dl Globulin 2.9 (2.5-4.0) gm/dl Albumin/Globulin Ratio 1.4 (0.9-2) Lipase 13 (11-82) U/L Urine Color Yellow Urine Appearance Clear (Clear) Urine pH 8.5 H (4.5-7.5) Ur Specific Maddock 1.009 (1.000-1.030) Urine Protein Negative (Negative) Urine Glucose (UA) Negative (Negative) Urine Ketones Negative (Negative) Urine Blood Negative (Negative) Urine Nitrite Negative (Negative) Urine Bilirubin Negative (Negative) Urine Urobilinogen Negative (Negative) Ur Leukocyte Esterase 3+ H (Negative) Urine WBC (Auto) >50 H (0-5) /hpf Urine RBC (Auto) 0-2 (0-2) /hpf U Hyaline Cast (Auto) 0-2 (0-2) /lpf U Epithel Cells (Auto) 0-2 (0-2) /hpf Urine Bacteria (Auto) None Seen (None Seen) Urine Comment Diagnostic Findings ADDENDUM ADDENDUM: 02/24/25 00:19 Call Doctor Regarding Appendicitis, called Dr. Gaffney on 02/24 00:19 (-04:00) Electronically signed by: Mayo Pollard MD Electronically signed by: Mayo Pollard MD 02/24/25 00:09 AM ADDENDUM END Exam(s): CT ABDOMEN + PELVIS With Contrast IV Amt: 93 ML OPTIRAY 320 EXAM: CT Abdomen and Pelvis With Intravenous Contrast CLINICAL HISTORY: Reason for exam: RLQ abd pain. TECHNIQUE: Axial computed tomography images of the abdomen and pelvis with intravenous contrast. CTDI is 27.62 mGy and DLP is 1230.95 mGy-cm. Automated exposure control was utilized for the study. A dose lowering technique was utilized adhering to the principles of ALARA. CONTRAST: Patient received 93 ML OPTIRAY 320 of IV contrast COMPARISON: 10/21/2024 FINDINGS: Lung bases: Mild emphysematous changes in the lung bases with 3 cm area of patchy infiltrate in the right lower lobe suspicious for pneumonia or atelectasis, new since previous. ABDOMEN: Liver: Unremarkable. No mass. Gallbladder and bile ducts: Unremarkable. No calcified stones. No ductal dilation. Pancreas: Unremarkable. No mass. No ductal dilation. Spleen: Unremarkable. No splenomegaly. Adrenals: Unremarkable. No mass. Kidneys and ureters: Unremarkable. No solid mass. No hydronephrosis. Stomach and bowel: Diverticulosis of the sigmoid colon without evidence of acute diverticulitis. No obstruction. PELVIS: Appendix: There is an approximately 3.8 x 1.1 cm appendicolith in the base of the appendix. The appendix is dilated measuring 1.4 cm with slight inflammation surrounding the base suggesting mild acute appendicitis. No signs of rupture or abscess. Bladder: Unremarkable. No mass. Reproductive: Unremarkable as visualized. ABDOMEN and PELVIS: Intraperitoneal space: Unremarkable. No free air. No significant fluid collection. Bones/joints: Mild degenerative changes throughout the spine. No acute fracture or subluxation. Soft tissues: Unremarkable. Vasculature: The abdominal aorta is heavily calcified but nondilated. Lymph nodes: Unremarkable. No enlarged lymph nodes. IMPRESSION: 1. There is an approximately 3.8 x 1.1 cm appendicolith in the base of the appendix. The appendix is dilated measuring 1.4 cm with slight inflammation surrounding the base suggesting mild acute appendicitis. No signs of rupture or abscess. 2. Mild emphysematous changes in the lung bases with 3 cm area of patchy infiltrate in the right lower lobe suspicious for pneumonia or atelectasis, new since previous. Communications: Call Doctor Appendicitis Electronically signed by: Mayo Pollard MD 02/24/25 00:09 AM (1) Acute appendicitis Acute appendicitis type: with localized peritonitis Appendicitis gangrene presence: without gangrene Appendicitis perforation presence: without perf oration Appendicitis abscess presence: without abscess Qualified Code(s): K35.30 - Acute appendicitis with localized peritonitis, without perforation or gangrene
[2025-02-24] MEDS ORDERED: VIBEGRON 75 MG TAB PO SCH (09:00)
--- NOTE | 2025-02-24 09:30 | Anesthesiology Consultation ---
Date of Service February 24, 2025 Assessment & Plan Chart Review Chart Review: Acceptable Risk for Surgery Consults Requested none History Surgery Operation Date: 02/24/25 11:40 Proposed Procedures p Laparoscopic Appendectomy - Justino Burns MD Height/Weight Height: 5 ft 5 in Weight: 87.7 kg Allergies Allergy/AdvReac Type Severity Reaction Status Date / Time NSAIDS (Non-Steroidal AdvReac Intermediate Gastrointestinal Verified 02/23/25 23:11 Anti-Inflamma Upset Sulfa (Sulfonamide AdvReac Intermediate Gastrointestinal Verified 02/23/25 23:11 Antibiotics) Upset Medications Home Medications Medication Instructions Recorded Confirmed Last Taken atorvastatin 10 mg tablet 10 mg PO HS 11/24/19 02/23/25 02/22/25 acetaminophen 500 mg tablet 1,000 mg PO Q8H PRN Fever Or Pain 02/09/21 02/23/25 02/09/21 (Tylenol Extra Strength) latanoprost 0.005 % eye drops 1 drp OPB DAILY 02/09/21 02/23/25 02/23/25 Oxygen Home #1 ea 04/06/21 12/22/24 Unknown Oxygen Home #1 ea 06/28/21 11/11/24 Unknown cranberry 500 mg capsule 500 mg PO DAILY #30 caps 10/05/21 02/23/25 02/23/25 ascorbic acid (vitamin C) 1,000 mg 1 g PO DAILY 04/20/22 02/23/25 02/23/25 capsule tramadol 50 mg tablet 50 mg PO Q4H PRN Pain 09/20/22 02/23/25 02/08/25 triamcinolone acetonide 0.1 % 1 applic topical Q8H PRN Painful 03/12/23 02/23/25 Unknown topical cream Hemorrhoids ropinirole 1 mg tablet 1 mg PO HS 30 days #30 tabs 08/28/23 02/23/25 02/22/25 arformoterol 15 mcg/2 mL solution 2 ml inhalation Q12H 10/16/23 02/23/25 02/23/25 08:30 for nebulization hydroxyzine HCl 25 mg tablet 25 mg PO Q8H PRN Anxiety 10/16/23 02/23/25 02/01/25 hydroxyzine pamoate 50 mg capsule 50 mg PO HS 10/16/23 02/23/25 02/22/25 ipratropium 0.5 mg-albuterol 3 mg 3 ml inhalation Q2H PRN 10/16/23 02/23/25 02/10/25 (2.5 mg base)/3 mL nebulization sob/wheezing soln loperamide 2 mg capsule 2 mg PO DIRECTED PRN loose stool 10/16/23 02/23/25 Unknown (Anti-Diarrheal (loperamide)) sodium chloride 0.65 % nasal spray 2 spray intranasal Q2H PRN dry 10/16/23 02/23/25 02/07/25 aerosol (Saline Nasal) nares budesonide 0.5 mg/2 mL suspension 0.5 mg inhalation AMPM 11/02/23 02/23/25 02/23/25 for nebulization ramelteon 8 mg tablet 8 mg PO HS 11/02/23 02/23/25 02/22/25 ensifentrine 3 mg/2.5 mL 3 mg (2.5 mL) inhalation BID #150 06/24/24 02/23/25 02/23/25 08:30 suspension for nebulization mL (Ohtuvayre) mirtazapine 7.5 mg tablet 7.5 mg PO HS 06/24/24 02/23/25 02/22/25 insulin glargine 100 unit/mL (3 50 unit subcut HS 08/04/24 02/23/25 02/22/25 mL) subcutaneous pen (Lantus Solostar U-100 Insulin) menthol 4 % topical gel (Biofreeze 1 applic topical Q4H PRN Muscle 08/04/24 02/23/25 Unknown (menthol)) Pain spironolactone 50 mg tablet 100 mg PO BIDM 08/04/24 02/23/25 02/23/25 carboxymethylcellulose sodium 1 % 1 drp ophthalmic (eye) DIRECTED 08/11/24 02/23/25 Unknown eye drops (Artificial Tears PRN Dry Eyes (carboxymethylcellulose)) lamotrigine 150 mg tablet 150 mg PO DAILY 10/14/24 02/23/25 02/23/25 quetiapine 25 mg tablet 37.5 mg PO BID 10/14/24 02/23/25 02/23/25 08:30 revefenacin 175 mcg/3 mL solution 175 mcg inhalation DAILY 12/22/24 02/23/25 02/23/25 for nebulization vibegron 75 mg tablet (Gemtesa) 75 mg PO DAILY 12/22/24 02/23/25 02/23/25 aluminum-mag hydroxide-simethicone 60 ml PO Q6H PRN Dyspepsia 01/08/25 02/23/25 02/23/25 16:54 200 mg-200 mg-20 mg/5 mL oral susp (Yvette-Lanta) calcium carbonate 500 mg PO DAILY 01/08/25 02/23/25 02/23/25 carbidopa 25 mg-levodopa 100 mg 1.5 tab PO TID 01/08/25 02/23/25 02/23/25 tablet (Sinemet) eluxadoline 100 mg tablet (Viberzi) 100 mg PO BIDM IBS-D 01/08/25 02/23/25 02/23/25 ergocalciferol (vitamin D2) 1,250 1,250 mcg PO 2XWK 01/08/25 02/23/25 02/22/25 mcg (50,000 unit) capsule (Vitamin D2) hydrocortisone 1 % topical cream 1 applic topical Q6H PRN 01/08/25 02/23/25 Unknown (Preparation H Hydrocortisone) Hemorrhoids insulin lispro 100 unit/mL 1 sliding scale dose subcut UD 01/08/25 02/23/25 02/16/25 subcutaneous solution (Humalog HYPERGYLCEMIA U-100 Insulin) insulin lispro 100 unit/mL 5 unit subcut TIDM 01/08/25 02/23/25 02/23/25 subcutaneous solution (Humalog U-100 Insulin) menthol 7.5 mg lozenges ([place] 7.5 mg PO Q1H PRN COUGH/SORE THROAT 01/08/25 02/23/25 Unknown Cough Drops) pimavanserin 34 mg capsule 34 mg PO DAILY 01/08/25 02/23/25 02/23/25 (Nuplazid) sodium chloride-aloe vera nasal 1 applic topical TID 01/08/25 02/23/25 02/23/25 15:00 gel ([place] Saline nasal gel) camphor 4.7 %-eucalyptus oil 1.2 1 applic topical Q8H PRN Congestion 01/18/25 02/23/25 Unknown %-menthol 2.6 % topical ointment (Vicks Vaporub) carbidopa ER 50 mg-levodopa 200 mg 1 tab PO HS 01/18/25 02/23/25 02/22/25 tablet,extended release carboxymethylcellulose sodium 1 % 1 drp OPB QID 02/23/25 02/23/25 02/23/25 16:30 eye drops (Artificial Tears (carboxymethylcellulose)) desvenlafaxine succinate 50 mg 50 mg PO DAILY 02/23/25 02/23/25 02/23/25 tablet,extended release 24 hr (Pristiq) guaifenesin 600 mg tablet, 600 mg PO QAM 02/23/25 02/23/25 02/23/25 extended release 12 hr (Mucinex) ondansetron HCl 8 mg tablet 8 mg PO Q8H PRN NAUSEA/VOMITING 02/23/25 02/23/25 02/23/25 07:45 oxymetazoline 0.05 % nasal spray 2 spray intranasal Q12H PRN Nasal 02/23/25 02/23/25 02/07/25 (Afrin (oxymetazoline)) Congestion Active Medications Generic Name Dose Route Start Last Admin Trade Name Freq PRN Reason Stop Dose Admin Budesonide 0.5 mg 02/24/25 07:00 02/24/25 07:00 Budesonide 0.5 Mg/2 Ml Vial (Pulmicort) INH 03/26/25 06:59 0.5 mg BIDR STEFANI Administration Formoterol Fumarate 20 mcg 02/24/25 07:00 02/24/25 07:00 Formoterol 20 Mcg/2 Ml Vial INH 03/26/25 06:59 20 mcg Q12R STEFANI Administration Piperacillin Sod/Tazobactam Sod 4.5 gm in 100 mls @ 25 mls/hr 02/24/25 06:00 02/24/25 05:33 Zosyn IV 03/06/25 05:59 25 mls/hr Q8H STEFANI Administration Protocol Insulin Aspart 0 units 02/24/25 06:00 02/24/25 05:55 Insulin Aspart Per Unit Charge SC 03/26/25 05:59 Not Given Q6 STEFANI NPO Date Last Intake of Fluids: 02/23/25 Time Last Intake of Fluids: 23:59 Date Last Intake of Solids: 02/23/25 Time Last Intake of Solids: 23:59 Past Medical History Medical History DVT prophylaxis Metabolic alkalosis Benzodiazepine dependence Urinary incontinence Vitamin D deficiency Osteoporosis Diverticulosis Rosacea Urethral prolapse Nodule of right lung Glaucoma Sensorineural deafness Breast CA Hypertension Hyperlipidemia Insomnia IBS (irritable bowel syndrome) Hypokalemia Lower extremity edema Past Family History Family History Other Cancer Colonic polyp Coronary heart disease Hypertension IBS (irritable bowel syndrome) Stroke Past Surgical History Surgical History H/O colonoscopy History of esophagogastroduodenoscopy (EGD) Hx of tubal ligation History of tonsillectomy H/O right cataract extraction Status post myringotomy with insertion of tube H/O right mastectomy Social History Smoking Status: Former smoker Do You Dip or Chew Tobacco: No Hx Alcohol Use: No Hx Substance Use: No substance use type: opiates, prescription drug and other Substance Use Type Other:: anxiety and pain medication used as needed Last Used Substance: Days (ago) Physical Exam Vital Signs Last Vital Signs Temp 36.6 C 02/24/25 08:49 Pulse 102 H 02/24/25 08:49 Resp 22 02/24/25 08:49 BP 121/64 02/24/25 08:49 Pulse Ox 96 02/24/25 08:49 O2 Del Method Nasal Cannula 02/24/25 08:49 O2 Flow Rate 4 02/24/25 08:49 Testing Laboratory Results 02/24/25 04:15 02/24/25 04:15 Urine Color Yellow 02/23/25 23:00 Urine Appearance Clear (Clear) 02/23/25 23:00 Urine pH 8.5 (4.5-7.5) H 02/23/25 23:00 Ur Specific [place] 1.009 (1.000-1.030) 02/23/25 23:00 Urine Protein Negative (Negative) 02/23/25 23:00 Urine Glucose (UA) Negative (Negative) 02/23/25 23:00 Urine Ketones Negative (Negative) 02/23/25 23:00 Urine Nitrite Negative (Negative) 02/23/25 23:00 Ur Leukocyte Esterase 3+ (Negative) H 02/23/25 23:00 Urine WBC (Auto) >50 /hpf (0-5) H 02/23/25 23:00 Urine RBC (Auto) 0-2 /hpf (0-2) 02/23/25 23:00 U Hyaline Cast (Auto) 0-2 /lpf (0-2) 02/23/25 23:00 U Epithel Cells (Auto) 0-2 /hpf (0-2) 02/23/25 23:00 Urine Bacteria (Auto) None Seen (None Seen) 02/23/25 23:00 02/24/25 02/24/25 09:04 03:58 POC Glucose 106 H 136 H
[2025-02-24] MEDS ORDERED: HYDROmorphone INJ 2 MG/ML SYR/VIAL IV PRN (10:22)
[2025-02-24] MEDS ORDERED: ATROPINE SULFATE 0.1 MG/ML 10ML SYR IV PRN (10:22)
[2025-02-24] MEDS ORDERED: PROMETHAZINE HCL 6.25 MG in SODIUM CHLORIDE 0.9% 50 ML IV PRN (10:22)
[2025-02-24] MEDS: BUPIVACAINE/EPINEPHRINE 0.5% MPF 1:200,000 30 ML VIAL ONE (10:46)
--- NOTE | 2025-02-24 10:47 | Post Operative Brief Note ---
Immediate Post Op Note Date of Surgery February 24, 2025 Pre & Post Diagnosis Operation Date: 02/24/25 11:40 Pre-Op Diagnosis: Acute Appendicitis Post-Op Diagnosis: Acute Appendicitis I identified the patient and participated in the time-out.: Yes Procedure Operation Date: 02/24/25 11:40 Actual Procedures p Laparoscopic Appendectomy(Not Applicable) - Justino Burns MD Surgeon Justino Burns MD Development Technical Lead SABINO Marin assisted with tissue retraction, camera op, closure Estimated Blood Loss 5 Findings Consistent with Post-Op Diagnosis Drains Patel Catheter (inserted after induction of anesthesia by Jahaira Bailey RN without difficulty. Removed at end of procedure per surgeon request.)
--- NOTE | 2025-02-24 10:49 | Operative Report ---
Post Operative Report Pre & Post Diagnosis Operation Date: 02/24/25 11:40 Pre-Op Diagnosis: Acute Appendicitis Post-Op Diagnosis: Acute Appendicitis I identified the patient and participated in the time-out.: Yes Procedure Operation Date: 02/24/25 11:40 Actual Procedures p Laparoscopic Appendectomy(Not Applicable) - Justino Burns MD Surgeon Justino Burns MD Felt Hat Inspector And Packer SABINO Marin assisted with tissue retraction, camera op, closure Estimated Blood Loss 5 Findings Consistent with Post-Op Diagnosis Specimens appendix Drains none Anesthesia Type General Complications none Description of Procedure the patient was taken to the operating room, and placed supine on the operating table. A timeout was performed, perioperative antibiotics were administered, SCD boots were placed. After adequate anesthesia and analgesia was obtained, the abdomen was prepped and draped in the normal sterile fashion. A 1 cm incision was made in the supraumbilical region and carried down to the level of the fascia. A trach hook was used to grasp the fascia and elevated and a varies needle was used to enter the abdominal cavity. The abdomen was insufflated to a pressure of 15 mmHg, and a 5 mm trocar was placed in this location. A 5 mm 30 degree laparoscope was placed into the abdominal cavity, and the abdomen was surveyed. The patient was placed in Trendelenburg and slightly to the left. One 5 mm trocar was placed in the right upper quadrant, and one 12 mm trocar was placed in the left lower quadrant under direct visualization. The right colon was identified and traced down to the cecum. The appendix was identified and elevated anteriorly and medially. A window was created at the base of the appendix with a [place] dissector. The Endo CONCHITA stapler was used to transect the appendix at its base through noninflamed tissue, and subsequently the mesoappendix. The appendix was placed in an Endo Catch bag, and removed via the left lower quadrant port site. Attention was turned to hemostasis, which was excellent. The abdomen was copiously irrigated and suctioned free, and again hemostasis was found to be excellent. All trochars removed under direct visualization. The abdomen was desufflated. The fascia in the 12 mm port site was closed with a 0 Vicryl suture. The skin was closed with a running 4-0 Monocryl subcuticular stitch. Dermabond was applied. The patient tolerated the procedure without complication, and was transferred in stable condition to the PACU. All instrument, needle, and sponge counts were correct at the end of the case. My pediatric physician assistant was necessary throughout the procedure for tissue retraction, possible camera operation, and closure of the wounds. I understand that section 1842(b)(7)(D) of the Social Security act generally prohibits Medicare physician fee schedule payment for the services of assistants at surgery in teaching hospitals when qualified residents are available to furnish such services. I certify that the services for which payment is claimed were medically necessary and that no qualified resident was available to perform the services. I further understand that these services are subject to postpayment review by the Medicare carrier. I attest to the content of the Intraoperative Record and any orders documented therein. Any exceptions are noted below.
[2025-02-24] MEDS ORDERED: diphenhydrAMINE Capsule 25 MG CAP PO PRN (12:24)
[2025-02-24] MEDS: CARBIDOPA/LEVODOPA 25/100MG TAB PO SCH (12:36)
[2025-02-24] MEDS: ARTIFICIAL TEARS OP SCH (12:37)
--- NOTE | 2025-02-24 12:45 | Anesthesiology Progress Note ---
Date of Service February 24, 2025 Anesthesia Post Procedure Vital Signs Vital Signs: Temp Pulse Pulse Pulse Resp BP BP 02/24/25 11:59 88 24 155/70 H 02/24/25 11:50 87 25 H 154/72 H 02/24/25 11:40 36.7 C 88 22 144/77 H 02/24/25 11:30 92 H 23 122/79 02/24/25 11:20 88 25 H 157/65 H 02/24/25 11:10 90 20 151/76 H 02/24/25 11:00 36 C L 84 19 157/85 H 02/24/25 08:49 36.6 C 102 H 22 121/64 02/24/25 08:25 02/24/25 07:44 108 H 22 02/24/25 07:09 88 18 02/24/25 07:09 90 21 130/82 02/24/25 07:00 88 18 02/24/25 06:27 81 15 02/24/25 06:00 112/62 02/24/25 06:00 112/62 02/24/25 05:54 98 H 22 02/24/25 05:30 103 H 23 02/24/25 05:06 91 H 20 02/24/25 04:42 02/24/25 04:30 89 16 02/24/25 04:06 93 H 17 02/24/25 04:00 122/73 02/24/25 04:00 122/73 02/24/25 03:48 100 H 17 02/24/25 03:42 105 H 21 02/24/25 03:31 02/24/25 03:05 110 H 23 141/75 H 02/24/25 02:00 88 18 136/74 02/24/25 01:48 02/24/25 01:48 90 20 137/83 02/24/25 01:47 02/24/25 01:19 109 H 02/24/25 01:00 110 H 19 153/93 H 02/24/25 00:30 93 H 27 H 156/97 H 02/24/25 00:00 93 H 22 142/81 H 02/23/25 23:30 96 H 16 125/69 02/23/25 23:07 117 H 18 134/74 02/23/25 22:36 02/23/25 22:12 02/23/25 22:03 117 H 25 H 02/23/25 21:51 113 H 31 H 02/23/25 21:40 109 H 02/23/25 21:35 144/70 H 02/23/25 21:34 36.4 C 106 H 21 144/70 H Pulse Ox Pulse Ox O2 Del Method O2 Del Method O2 Flow Rate O2 Flow Rate 02/24/25 11:59 99 Nasal Cannula 4 02/24/25 11:50 99 Nasal Cannula 4 02/24/25 11:40 98 Nasal Cannula 4 02/24/25 11:30 93 Nasal Cannula 4 02/24/25 11:20 99 Nasal Cannula 4 02/24/25 11:10 96 Nasal Cannula 6 02/24/25 11:00 97 Nasal Cannula 8 02/24/25 08:49 96 Nasal Cannula 4 02/24/25 08:25 Nasal Cannula 4 02/24/25 07:44 94 Nasal Cannula 4 02/24/25 07:09 02/24/25 07:09 94 Nebulizer 10 02/24/25 07:00 97 Oxymask 6 02/24/25 06:27 97 02/24/25 06:00 02/24/25 06:00 02/24/25 05:54 97 02/24/25 05:30 02/24/25 05:06 100 Oxymask 6 02/24/25 04:42 Oxymask 6 02/24/25 04:30 98 02/24/25 04:06 98 02/24/25 04:00 02/24/25 04:00 02/24/25 03:48 98 02/24/25 03:42 97 02/24/25 03:31 Oxymask 02/24/25 03:05 98 Oxymask 4 02/24/25 02:00 99 Oxymask 4 02/24/25 01:48 Oxymask 4 02/24/25 01:48 99 Oxymask 4 02/24/25 01:47 99 Oxymask 4 02/24/25 01:19 02/24/25 01:00 99 Oxymask 3 02/24/25 00:30 100 Oxymask 3 02/24/25 00:00 96 Oxymask 4 02/23/25 23:30 93 Oxymask 4 02/23/25 23:07 96 Oxymask 4 02/23/25 22:36 92 Oxymask 4 02/23/25 22:12 92 Nasal Cannula 3 02/23/25 22:03 94 Nasal Cannula 4 02/23/25 21:51 02/23/25 21:40 02/23/25 21:35 02/23/25 21:34 92 Nasal Cannula 4 Pain Intensity Abdomen: Pain Intensity: 4 Transfer of Care Handoff Completed per policy Notes Mental Status: alert / awake / arousable and participated in evaluation Patient Amnestic to Procedure: Yes Nausea / Vomiting: adequately controlled Pain: adequately controlled Airway Patency, RR, SpO2: stable & adequate BP & HR: stable & adequate Hydration State: stable & adequate Anesthetic Complications: no major complications apparent
[2025-02-24] MEDS: lamoTRIgine 100 MG TAB PO SCH (13:20)
[2025-02-24] MEDS: LATANOPROST 0.005% OP SOLN 2.5 ML BTL OPB SCH (13:26)
--- NOTE | 2025-02-24 13:26 | Hospitalist Progress Note ---
Date of Service February 24, 2025 Assessment & Plan (1) Acute appendicitis: (2) SIRS due to non-infectious process without acute organ dysfunction: Plan In summary this is a 79-year-old female who presented with right lower quadrant abdominal pain found to have acute appendicitis, now postoperative day 0 from an uncomplicated laparoscopic appendectomy #Acute appendicitis with SIRS Initially presented with tachycardia, leukocytosis, and elevated lactic acid; without additional markers or evidence of systemic infection, these findings are most likely reactive from the acutely inflamed appendix; blood cultures are pending at this time -Continue Zosyn 4.5 g every 8 hours, started 02/23 -Discontinue Vancomycin, given lack of evidence for MRSA or MSSA -Continue maintenance IVF until p.o. -General Surgery consulted #Chronic Respiratory failure with Hypoxia Continue chronic therapies Diet: n.p.o. DVT ppx: withheld in the setting of surgery on 02/24 Access: peripheral IV Code Status: DNR/DNI Admission and Anticipated Discharge Date Admission Date: February 24, 2025 Subjective Ms. Plaza is a 79-year-old female whose active medical conditions include chronic respiratory failure with hypoxia requiring 4L continuous supplementation, hyperlipidemia, type II diabetes mellitus, Parkinson's Disease among other medical conditions who presented to [facility] on 02/23 due to abdominal pain. She was found to have acute appendicitis with associated multisystem organ injury, and taken to the operative suite on 02/24 for appendectomy. The patient was seen postoperatively, is recovering well with some mild surgical site tenderness. Review of Systems Review of Systems: Constitutional: denies fevers, chills, malaise, fatigue Cardiovascular: denies angina, palpitations Pulmonary: denies cough, dyspnea on exertion, pleuritic chest pain Gastrointestinal: denies nausea, emesis, dysphagia, dyspepsia, abdominal distension, constipation, diarrhea Neurologic: denies focal weakness, paresthesias or numbness Integumentary: denies new or developing rashes or lesions Physical Exam Physical Exam: General: Adult in no acute distress Vital Signs: Reviewed; slightly elevated heart rate HEENT: Normocephalic, atraumatic; pupils equally reactive to light, extraocular motions intact; moist mucous membranes Neck: No palpable lymphadenopathy Pulmonary: symmetric chest wall excursion; CTAB Cardiovascular: Regular rate and rhythm with no murmurs, rubs, or gallops; S1 and S2 normal; bilateral radial and posterior tibial pulses 2+; no notable lower extremity edema Gastrointestinal: Soft, nondistended; low frequency and normal pitch of bowel sounds throughout; no palpable masses or organomegaly; laparoscopic surgical sites appear well Neurologic: CN II-XII grossly intact Results & Data Results & Data Vital Signs (Past 12 Hours) Vital Signs Temp Pulse Pulse Pulse Resp BP BP 02/24/25 12:54 36.5 C 100 H 20 136/78 02/24/25 11:59 88 24 155/70 H 02/24/25 11:50 87 25 H 154/72 H 02/24/25 11:40 36.7 C 88 22 144/77 H 02/24/25 11:30 92 H 23 122/79 02/24/25 11:20 88 25 H 157/65 H 02/24/25 11:10 90 20 151/76 H 02/24/25 11:00 36 C L 84 19 157/85 H 02/24/25 08:49 36.6 C 102 H 22 121/64 02/24/25 08:25 02/24/25 07:44 108 H 22 02/24/25 07:09 88 18 02/24/25 07:09 90 21 130/82 02/24/25 07:00 88 18 02/24/25 06:27 81 15 02/24/25 06:00 112/62 02/24/25 06:00 112/62 02/24/25 05:54 98 H 22 02/24/25 05:30 103 H 23 02/24/25 05:06 91 H 20 02/24/25 04:42 02/24/25 04:30 89 16 02/24/25 04:06 93 H 17 02/24/25 04:00 122/73 02/24/25 04:00 122/73 02/24/25 03:48 100 H 17 02/24/25 03:42 105 H 21 02/24/25 03:31 02/24/25 03:05 110 H 23 141/75 H 02/24/25 02:00 88 18 136/74 02/24/25 01:48 02/24/25 01:48 90 20 137/83 02/24/25 01:47 02/24/25 01:19 109 H Pulse Ox Pulse Ox O2 Del Method O2 Del Method O2 Flow Rate O2 Flow Rate 02/24/25 12:54 90 Nasal Cannula 4 02/24/25 11:59 99 Nasal Cannula 4 02/24/25 11:50 99 Nasal Cannula 4 02/24/25 11:40 98 Nasal Cannula 4 02/24/25 11:30 93 Nasal Cannula 4 02/24/25 11:20 99 Nasal Cannula 4 02/24/25 11:10 96 Nasal Cannula 6 02/24/25 11:00 97 Nasal Cannula 8 02/24/25 08:49 96 Nasal Cannula 4 02/24/25 08:25 Nasal Cannula 4 02/24/25 07:44 94 Nasal Cannula 4 02/24/25 07:09 02/24/25 07:09 94 Nebulizer 10 02/24/25 07:00 97 Oxymask 6 02/24/25 06:27 97 02/24/25 06:00 02/24/25 06:00 02/24/25 05:54 97 02/24/25 05:30 02/24/25 05:06 100 Oxymask 6 02/24/25 04:42 Oxymask 6 02/24/25 04:30 98 02/24/25 04:06 98 02/24/25 04:00 02/24/25 04:00 02/24/25 03:48 98 02/24/25 03:42 97 02/24/25 03:31 Oxymask 02/24/25 03:05 98 Oxymask 4 02/24/25 02:00 99 Oxymask 4 02/24/25 01:48 Oxymask 4 02/24/25 01:48 99 Oxymask 4 02/24/25 01:47 99 Oxymask 4 02/24/25 01:19 Laboratory Results 02/24/25 02/24/25 02/24/25 Unknown 12:50 11:03 WBC RBC Hgb Hct MCV MCH MCHC RDW Std Deviation RDW Coeff of Zen Plt Count MPV Immature Gran % (Auto) Neut % (Auto) Lymph % (Auto) [place] % (Auto) Eos % (Auto) Baso % (Auto) Neut # (Auto) Lymph # (Auto) [place] # (Auto) Eos # (Auto) Baso # (Auto) Immature Gran # (Auto) Sodium Potassium Chloride Carbon Dioxide Anion Gap BUN Creatinine Est Cr Clr Drug Dosing eGFR BUN/Creatinine Ratio Glucose POC Glucose 132 H 112 H Lactate Calcium Magnesium Total Bilirubin AST ALT Alkaline Phosphatase Total Protein Albumin Globulin Albumin/Globulin Ratio Lipase Urine Color Urine Appearance Urine pH Ur Specific Warren Urine Protein Urine Glucose (UA) Urine Ketones Urine Blood Urine Nitrite Urine Bilirubin Urine Urobilinogen Ur Leukocyte Esterase Urine WBC (Auto) Urine RBC (Auto) U Hyaline Cast (Auto) U Epithel Cells (Auto) Urine Bacteria (Auto) Urine Comment SARS-CoV-2, RNA, NAAT NEGATIVE 02/24/25 02/24/25 02/24/25 09:04 04:15 03:58 WBC 12.23 H RBC 3.86 L Hgb 10.6 L Hct 33.9 L MCV 87.8 MCH 27.5 MCHC 31.3 L RDW Std Deviation 43.4 RDW Coeff of Zen 13.6 Plt Count 187 MPV 10.7 Immature Gran % (Auto) 0.7 Neut % (Auto) 81.5 Lymph % (Auto) 11.7 [place] % (Auto) 5.2 Eos % (Auto) 0.7 Baso % (Auto) 0.2 Neut # (Auto) 9.98 H Lymph # (Auto) 1.43 [place] # (Auto) 0.63 H Eos # (Auto) 0.08 Baso # (Auto) 0.03 Immature Gran # (Auto) 0.08 Sodium 140 Potassium 4.2 Chloride 108 H Carbon Dioxide 27 Anion Gap 5 BUN 6 Creatinine 0.71 D Est Cr Clr Drug Dosing 72.6 eGFR 87.52 BUN/Creatinine Ratio 8.5 L Glucose 131 H POC Glucose 106 H 136 H Lactate Calcium 7.0 L D Magnesium 1.9 Total Bilirubin 0.3 AST 10 L ALT 8 Alkaline Phosphatase 50 Total Protein 5.6 L D Albumin 3.4 Globulin 2.2 L Albumin/Globulin Ratio 1.5 Lipase Urine Color Urine Appearance Urine pH Ur Specific Warren Urine Protein Urine Glucose (UA) Urine Ketones Urine Blood Urine Nitrite Urine Bilirubin Urine Urobilinogen Ur Leukocyte Esterase Urine WBC (Auto) Urine RBC (Auto) U Hyaline Cast (Auto) U Epithel Cells (Auto) Urine Bacteria (Auto) Urine Comment SARS-CoV-2, RNA, NAAT 02/24/25 02/23/25 02/23/25 01:38 23:00 22:38 WBC RBC Hgb Hct MCV MCH MCHC RDW Std Deviation RDW Coeff of Zen Plt Count MPV Immature Gran % (Auto) Neut % (Auto) Lymph % (Auto) [place] % (Auto) Eos % (Auto) Baso % (Auto) Neut # (Auto) Lymph # (Auto) [place] # (Auto) Eos # (Auto) Baso # (Auto) Immature Gran # (Auto) Sodium Potassium Chloride Carbon Dioxide Anion Gap BUN Creatinine Est Cr Clr Drug Dosing eGFR BUN/Creatinine Ratio Glucose POC Glucose Lactate 1.2 2.7 H* Calcium Magnesium Total Bilirubin AST ALT Alkaline Phosphatase Total Protein Albumin Globulin Albumin/Globulin Ratio Lipase Urine Color Yellow Urine Appearance Clear Urine pH 8.5 H Ur Specific [place] 1.009 Urine Protein Negative Urine Glucose (UA) Negative Urine Ketones Negative Urine Blood Negative Urine Nitrite Negative Urine Bilirubin Negative Urine Urobilinogen Negative Ur Leukocyte Esterase 3+ H Urine WBC (Auto) >50 H Urine RBC (Auto) 0-2 U Hyaline Cast (Auto) 0-2 U Epithel Cells (Auto) 0-2 Urine Bacteria (Auto) None Seen Urine Comment SARS-CoV-2, RNA, NAAT 02/23/25 22:12 WBC 13.24 H RBC 4.73 Hgb 12.6 Hct 40.3 MCV 85.2 MCH 26.6 MCHC 31.3 L RDW Std Deviation 42.6 RDW Coeff of Zen 13.7 Plt Count 222 MPV 10.6 Immature Gran % (Auto) 0.7 Neut % (Auto) 78.2 Lymph % (Auto) 13.4 [place] % (Auto) 6.2 Eos % (Auto) 1.1 Baso % (Auto) 0.4 Neut # (Auto) 10.36 H Lymph # (Auto) 1.78 [place] # (Auto) 0.82 H Eos # (Auto) 0.14 Baso # (Auto) 0.05 Immature Gran # (Auto) 0.09 Sodium 136 Potassium 4.7 Chloride 97 L Carbon Dioxide 33 H Anion Gap 6 BUN 7 Creatinine 1.03 Est Cr Clr Drug Dosing 50.0 eGFR 56.00 BUN/Creatinine Ratio 6.8 L Glucose 198 H POC Glucose Lactate Calcium 9.2 Magnesium 2.3 Total Bilirubin 0.3 AST 13 ALT 8 Alkaline Phosphatase 62 Total Protein 7.1 Albumin 4.2 Globulin 2.9 Albumin/Globulin Ratio 1.4 Lipase 13 Urine Color Urine Appearance Urine pH Ur Specific Warren Urine Protein Urine Glucose (UA) Urine Ketones Urine Blood Urine Nitrite Urine Bilirubin Urine Urobilinogen Ur Leukocyte Esterase Urine WBC (Auto) Urine RBC (Auto) U Hyaline Cast (Auto) U Epithel Cells (Auto) Urine Bacteria (Auto) Urine Comment SARS-CoV-2, RNA, NAAT Diagnostic Findings Abdomen/Pelvis CT 02/23/25 21:57 CR Exam(s): CT ABDOMEN + PELVIS With Contrast IV Amt: 93 ML OPTIRAY 320 EXAM: CT Abdomen and Pelvis With Intravenous Contrast CLINICAL HISTORY: Reason for exam: RLQ abd pain. TECHNIQUE: Axial computed tomography images of the abdomen and pelvis with intravenous contrast. CTDI is 27.62 mGy and DLP is 1230.95 mGy-cm. Automated exposure control was utilized for the study. A dose lowering technique was utilized adhering to the principles of ALARA. CONTRAST: Patient received 93 ML OPTIRAY 320 of IV contrast COMPARISON: 10/21/2024 FINDINGS: Lung bases: Mild emphysematous changes in the lung bases with 3 cm area of patchy infiltrate in the right lower lobe suspicious for pneumonia or atelectasis, new since previous. ABDOMEN: Liver: Unremarkable. No mass. Gallbladder and bile ducts: Unremarkable. No calcified stones. No ductal dilation. Pancreas: Unremarkable. No mass. No ductal dilation. Spleen: Unremarkable. No splenomegaly. Adrenals: Unremarkable. No mass. Kidneys and ureters: Unremarkable. No solid mass. No hydronephrosis. Stomach and bowel: Diverticulosis of the sigmoid colon without evidence of acute diverticulitis. No obstruction. PELVIS: Appendix: There is an approximately 3.8 x 1.1 cm appendicolith in the base of the appendix. The appendix is dilated measuring 1.4 cm with slight inflammation surrounding the base suggesting mild acute appendicitis. No signs of rupture or abscess. Bladder: Unremarkable. No mass. Reproductive: Unremarkable as visualized. ABDOMEN and PELVIS: Intraperitoneal space: Unremarkable. No free air. No significant fluid collection. Bones/joints: Mild degenerative changes throughout the spine. No acute fracture or subluxation. Soft tissues: Unremarkable. Vasculature: The abdominal aorta is heavily calcified but nondilated. Lymph nodes: Unremarkable. No enlarged lymph nodes. IMPRESSION: 1. There is an approximately 3.8 x 1.1 cm appendicolith in the base of the appendix. The appendix is dilated measuring 1.4 cm with slight inflammation surrounding the base suggesting mild acute appendicitis. No signs of rupture or abscess. 2. Mild emphysematous changes in the lung bases with 3 cm area of patchy infiltrate in the right lower lobe suspicious for pneumonia or atelectasis, new since previous. Communications: Call Doctor Appendicitis Electronically signed by: Mayo Pollard MD 02/24/25 00:09 AM Chest X-Ray 02/23/25 22:06 Exam(s): XR CXR 1 VIEW EXAM: XR Chest, 1 View CLINICAL HISTORY: Reason for exam: COPD, recent pneumonia. TECHNIQUE: Frontal view of the chest. COMPARISON: 02/04/2025 FINDINGS: Lungs: Lungs are borderline hyperinflated with coarse interstitial markings throughout the mid to lower lungs, similar to previous. No new infiltrates are identified. Pleural space: Unremarkable. No pneumothorax. Heart: Unremarkable. No cardiomegaly. Mediastinum: Unremarkable. Normal mediastinal contour. Bones/joints: [id number] degenerative changes in the left shoulder, unchanged. No acute fracture. Soft tissues: Surgical clips in the right axilla. Vasculature: The thoracic aorta is mildly calcified. IMPRESSION: Lungs are borderline hyperinflated with coarse interstitial markings throughout the mid to lower lungs, similar to previous. No new infiltrates are identified. Electronically signed by: Mayo Pollard MD 02/24/25 00:10 AM Medications Administered Home Medications Medication Instructions Recorded Confirmed Last Taken atorvastatin 10 mg tablet 10 mg PO HS 11/24/19 02/23/25 02/22/25 acetaminophen 500 mg tablet 1,000 mg PO Q8H PRN Fever Or Pain 02/09/21 02/23/25 02/09/21 (Tylenol Extra Strength) latanoprost 0.005 % eye drops 1 drp OPB DAILY 02/09/21 02/23/25 02/23/25 Oxygen Home #1 ea 04/06/21 12/22/24 Unknown Oxygen Home #1 ea 06/28/21 11/11/24 Unknown cranberry 500 mg capsule 500 mg PO DAILY #30 caps 10/05/21 02/23/25 02/23/25 ascorbic acid (vitamin C) 1,000 mg 1 g PO DAILY 04/20/22 02/23/25 02/23/25 capsule tramadol 50 mg tablet 50 mg PO Q4H PRN Pain 09/20/22 02/23/25 02/08/25 triamcinolone acetonide 0.1 % 1 applic topical Q8H PRN Painful 03/12/23 02/23/25 Unknown topical cream Hemorrhoids ropinirole 1 mg tablet 1 mg PO HS 30 days #30 tabs 08/28/23 02/23/25 02/22/25 arformoterol 15 mcg/2 mL solution 2 ml inhalation Q12H 10/16/23 02/23/25 02/23/25 08:30 for nebulization hydroxyzine HCl 25 mg tablet 25 mg PO Q8H PRN Anxiety 10/16/23 02/23/25 02/01/25 hydroxyzine pamoate 50 mg capsule 50 mg PO HS 10/16/23 02/23/25 02/22/25 ipratropium 0.5 mg-albuterol 3 mg 3 ml inhalation Q2H PRN 10/16/23 02/23/25 02/10/25 (2.5 mg base)/3 mL nebulization sob/wheezing soln loperamide 2 mg capsule 2 mg PO DIRECTED PRN loose stool 10/16/23 02/23/25 Unknown (Anti-Diarrheal (loperamide)) sodium chloride 0.65 % nasal spray 2 spray intranasal Q2H PRN dry 10/16/23 02/23/25 02/07/25 aerosol (Saline Nasal) nares budesonide 0.5 mg/2 mL suspension 0.5 mg inhalation AMPM 11/02/23 02/23/25 02/23/25 for nebulization ramelteon 8 mg tablet 8 mg PO HS 11/02/23 02/23/25 02/22/25 ensifentrine 3 mg/2.5 mL 3 mg (2.5 mL) inhalation BID #150 06/24/24 02/23/25 02/23/25 08:30 suspension for nebulization mL (Ohtuvayre) mirtazapine 7.5 mg tablet 7.5 mg PO HS 06/24/24 02/23/25 02/22/25 insulin glargine 100 unit/mL (3 50 unit subcut HS 08/04/24 02/23/25 02/22/25 mL) subcutaneous pen (Lantus Solostar U-100 Insulin) menthol 4 % topical gel (Biofreeze 1 applic topical Q4H PRN Muscle 08/04/24 02/23/25 Unknown (menthol)) Pain spironolactone 50 mg tablet 100 mg PO BIDM 08/04/24 02/23/25 02/23/25 carboxymethylcellulose sodium 1 % 1 drp ophthalmic (eye) DIRECTED 08/11/24 02/23/25 Unknown eye drops (Artificial Tears PRN Dry Eyes (carboxymethylcellulose)) lamotrigine 150 mg tablet 150 mg PO DAILY 10/14/24 02/23/25 02/23/25 quetiapine 25 mg tablet 37.5 mg PO BID 10/14/24 02/23/25 02/23/25 08:30 revefenacin 175 mcg/3 mL solution 175 mcg inhalation DAILY 12/22/24 02/23/25 02/23/25 for nebulization vibegron 75 mg tablet (Gemtesa) 75 mg PO DAILY 12/22/24 02/23/25 02/23/25 aluminum-mag hydroxide-simethicone 60 ml PO Q6H PRN Dyspepsia 01/08/25 02/23/25 02/23/25 16:54 200 mg-200 mg-20 mg/5 mL oral susp (Yvette-Lanta) calcium carbonate 500 mg PO DAILY 01/08/25 02/23/25 02/23/25 carbidopa 25 mg-levodopa 100 mg 1.5 tab PO TID 01/08/25 02/23/25 02/23/25 tablet (Sinemet) eluxadoline 100 mg tablet (Viberzi) 100 mg PO BIDM IBS-D 01/08/25 02/23/25 02/23/25 ergocalciferol (vitamin D2) 1,250 1,250 mcg PO 2XWK 01/08/25 02/23/25 02/22/25 mcg (50,000 unit) capsule (Vitamin D2) hydrocortisone 1 % topical cream 1 applic topical Q6H PRN 01/08/25 02/23/25 Unknown (Preparation H Hydrocortisone) Hemorrhoids insulin lispro 100 unit/mL 1 sliding scale dose subcut UD 01/08/25 02/23/25 02/16/25 subcutaneous solution (Humalog HYPERGYLCEMIA U-100 Insulin) insulin lispro 100 unit/mL 5 unit subcut TIDM 01/08/25 02/23/25 02/23/25 subcutaneous solution (Humalog U-100 Insulin) menthol 7.5 mg lozenges (Martelle 7.5 mg PO Q1H PRN COUGH/SORE THROAT 01/08/25 02/23/25 Unknown Cough Drops) pimavanserin 34 mg capsule 34 mg PO DAILY 01/08/25 02/23/25 02/23/25 (Nuplazid) sodium chloride-aloe vera nasal 1 applic topical TID 01/08/25 02/23/25 02/23/25 15:00 gel (Moran Saline nasal gel) camphor 4.7 %-eucalyptus oil 1.2 1 applic topical Q8H PRN Congestion 01/18/25 02/23/25 Unknown %-menthol 2.6 % topical ointment (Vicks Vaporub) carbidopa ER 50 mg-levodopa 200 mg 1 tab PO HS 01/18/25 02/23/25 02/22/25 tablet,extended release carboxymethylcellulose sodium 1 % 1 drp OPB QID 02/23/25 02/23/25 02/23/25 16:30 eye drops (Artificial Tears (carboxymethylcellulose)) desvenlafaxine succinate 50 mg 50 mg PO DAILY 02/23/25 02/23/25 02/23/25 tablet,extended release 24 hr (Pristiq) guaifenesin 600 mg tablet, 600 mg PO QAM 02/23/25 02/23/25 02/23/25 extended release 12 hr (Mucinex) ondansetron HCl 8 mg tablet 8 mg PO Q8H PRN NAUSEA/VOMITING 02/23/25 02/23/25 02/23/25 07:45 oxymetazoline 0.05 % nasal spray 2 spray intranasal Q12H PRN Nasal 02/23/25 02/23/25 02/07/25 (Afrin (oxymetazoline)) Congestion Active Medications Generic Name Dose Route Start Last Admin Trade Name Freq PRN Reason Stop Dose Admin Artificial Tears 1 drops 02/24/25 09:00 02/24/25 12:37 Artificial Tears OP 03/26/25 08:59 Not Given QID STEFANI Budesonide 0.5 mg 02/24/25 07:00 02/24/25 07:00 Budesonide 0.5 Mg/2 Ml Vial (Pulmicort) INH 03/26/25 06:59 0.5 mg BIDR STEFANI Administration Carbidopa/Levodopa 1.5 tab 02/24/25 08:30 02/24/25 12:36 Carbidopa/Levodopa 25/100mg Tab PO 03/26/25 08:29 Not Given TID@0830,1230,1630 STEFANI Formoterol Fumarate 20 mcg 02/24/25 07:00 02/24/25 07:00 Formoterol 20 Mcg/2 Ml Vial INH 03/26/25 06:59 20 mcg Q12R STEFANI Administration Piperacillin Sod/Tazobactam Sod 4.5 gm in 100 mls @ 25 mls/hr 02/24/25 06:00 02/24/25 05:33 Zosyn IV 03/06/25 05:59 25 mls/hr Q8H STEFANI Administration Protocol Lactated Ringer's 1,000 mls @ 120 mls/hr 02/24/25 10:00 02/24/25 12:43 Lr IV 02/26/25 09:59 120 mls/hr .Q8H20M STEFANI Administration Insulin Aspart 0 units 02/24/25 06:00 02/24/25 13:13 Insulin Aspart Per Unit Charge SC 03/26/25 05:59 Not Given Q6 STEFANI Miscellaneous 1 each 02/24/25 08:00 02/24/25 12:35 Desvenlafaxine Succinate [Pristiq]: Order Awaiting Action N/A 03/26/25 07:59 Not Given QS STEFANI Miscellaneous 1 each 02/24/25 08:00 02/24/25 12:35 Eluxadoline [Viberzi]: Order Awaiting Action N/A 03/26/25 07:59 Not Given QS STEFANI Miscellaneous 1 each 02/24/25 08:00 02/24/25 12:35 Ensifentrine [Ohtuvayre]: Order Awaiting Action N/A 03/26/25 07:59 Not Given QS STEFANI Miscellaneous 1 each 02/24/25 08:00 02/24/25 12:35 Pimavanserin [Nuplazid]: Order Awaiting Action N/A 03/26/25 07:59 Not Given QS STEFANI Miscellaneous 1 each 02/24/25 08:00 02/24/25 12:36 Ramelteon: Order Awaiting Action N/A 03/26/25 07:59 Not Given QS STEFANI Miscellaneous 1 each 02/24/25 08:00 02/24/25 12:36 Revefenacin: Order Awaiting Action N/A 03/26/25 07:59 Not Given QS STEFANI PG Care Time/CCT Total # of Minutes Spent Total Time Spent with Patient: Total time spent is greater than 50% in coordination of care (as documented) at patient's floor/unit and/or counseling patient: Coding Level of Care Code 32081 SUB INP/OBS CARE 3/50MIN History Detailed Exam Detailed Diagnoses Acute appendicitis with localized peritonitis, without perforation, abscess, or gangrene K35.30 Acute appendicitis type: with localized peritonitis Appendicitis gangrene presence: without gangrene Appendicitis perforation presence: without perforation Appendicitis abscess presence: without abscess SIRS due to non-infectious process without acute organ dysfunction R65.10 (1) Acute appendicitis Acute appendicitis type: with localized peritonitis Appendicitis gangrene presence: without gangrene Appendicitis perforation presence: without perforation Appendicitis abscess presence: without abscess Qualified Code(s): K35.30 - Acute appendicitis with localized peritonitis, without perforation or gangrene
[2025-02-24] MEDS ORDERED: VANCOMYCIN HCL 1,500 MG in SODIUM CHLORIDE 0.9% 500 ML IV SCH (16:00)
[2025-02-24] MEDS: SODIUM CHLOR 7% 4 ML NEB NEB SCH (19:07)
[2025-02-24] MEDS ORDERED: ATORVASTATIN 10 MG TAB PO SCH (21:00)
[2025-02-24] MEDS ORDERED: MIRTAZAPINE TAB 15 MG TAB PO SCH (21:00)
[2025-02-24] MEDS: LANTUS PER UNIT CHARGE SQ SCH (21:55)
[2025-02-24] MEDS: CARBIDOPA/LEVODOPA 50/200MG EXT REL TAB PO SCH (21:55)
[2025-02-24] MEDS: guaiFENesin 600 MG TABCR PO SCH (21:55)
[2025-02-25 07:38] VITALS: RESP 18
[2025-02-25 08:20] LABS: Hematocrit (blood only) 36.5 % (37.0-47.0); Hemoglobin 11.6 g/dl (12.0-16.0); Immature Granulocytes # (auto) 0.05 K/uL (0.01-0.20); Immature Granulocytes % (auto) 0.5 %; Mean Corpuscular Hemoglobin 27.5 pg (25.0-34.0); Mean Corpuscular Volume 86.5 fL (80.0-100.0); Platelet Count 229 K/uL (130-400); RDW Standard Deviation 43.2 fL (36.4-46.3); Red Blood Count 4.22 M/uL (4.20-5.40); White Blood Count 10.29 K/ul (4.8-10.8)
[2025-02-25] MEDS: VIBEGRON 75 MG TAB PO SCH (08:43)
[2025-02-25 08:44] LABS: Alanine Aminotransferase 4.0 U/L (7-52); Albumin Globulin Ratio 1.4 (0.9-2); Alkaline Phosphatase 59.0 U/L (34-104); Anion Gap 6.0 (3-11); Bilirubin,Total 0.4 mg/dl (0.2-1.0); Blood Urea Nitrogen 10.0 mg/dl (6-23); Calcium 8.4 mg/dl (8.6-10.3); Carbon Dioxide 31.0 mmol/L (21-32); Chloride 101.0 mmol/L (98-107); Creatinine Clr Calc Pharmacy 62.2 ml/min; Globulin 2.8 gm/dl (2.5-4.0); Glucose 164.0 mg/dl (70-99(Fasting)); Potassium 5.0 mmol/L (3.5-5.1); Sodium 138.0 mmol/L (136-145); Total Protein 6.6 gm/dl (6.0-8.3)
--- NOTE | 2025-02-25 08:47 | Surgery Progress Note ---
Date of Service February 25, 2025 Assessment & Plan (1) Acute appendicitis: Plan: POD # 1 s/p lap appy avss leukocytosis resolved postop pain controlled +cough still present Plan: doing well from surgical standpoing ADAT continue pain management as needed encourage ambulation encouraged incentive spirometery can add abdominal binder to help with taking deeper breaths and to increase coughing to expel sputum. 2 week follow-up in surgery office Admission and Anticipated Discharge Date Admission Date: February 24, 2025 Subjective feeling good, abdominal soreness at incision sites and more pain with coughing Coughing up sputum, light pink last night no fevers or chills no n,v tolerating diet passing gas urinating without difficulty Physical Exam Constitutional: WD/WN, vitals as above cooperative and comfortable; no acute distress and not ill appearing Respiratory: normal respiratory effort and + cough; no respiratory distress and no labored breathing She has oxygen via nasal cannula , coughing put seems to be shallow coughing due to abdominal pain Gastrointestinal (Abdomen): Inspection/Auscultation: abdomen normal to inspec tion, + abdominal wall ecchymosis (at LLQ incision site) and + abdominal surgical incision (c/d/i with dermabond); abdomen not distended Percussion/Palpation: + abdomen tender (at incision sites appropriate postop) and abdomen soft; no guarding and abdomen not rigid Skin: no rashes, warm and dry Psychiatric: Orientation: alert and oriented x 3 Results & Data Vital Signs (Past 12 Hours) Vital Signs Temp Pulse Pulse Resp BP Pulse Ox O2 Del Method 02/25/25 08:44 36.2 C L 95 H 18 145/80 H 90 Nasal Cannula 02/25/25 07:36 81 18 91 Nasal Cannula 02/25/25 06:35 94 Oxymask 02/25/25 03:35 36.6 C 82 20 102/65 98 Nasal Cannula 02/24/25 23:55 Oxymask 02/24/25 23:00 36.5 C 115 H 20 179/78 H 97 Nasal Cannula 02/24/25 22:22 36.7 C 95 H 20 146/70 H 92 Nasal Cannula 02/24/25 21:54 103 H O2 Flow Rate 02/25/25 08:44 4 02/25/25 07:36 4 02/25/25 06:35 4 02/25/25 03:35 4 07/30/25 23:55 6 02/24/25 23:00 4 02/24/25 22:22 4 02/24/25 21:54 Laboratory Results 02/25/25 02/25/25 02/25/25 Range/Units 08:00 05:54 00:18 WBC 10.29 (4.8-10.8) K/ul RBC 4.22 (4.20-5.40) M/uL Hgb 11.6 L (12.0-16.0) g/dl Hct 36.5 L (37.0-47.0) % MCV 86.5 (80.0-100.0) fL MCH 27.5 (25.0-34.0) pg MCHC 31.8 L (32.0-36.0) g/dL RDW Std Deviation 43.2 (36.4-46.3) fL RDW Coeff of Zen 13.7 (11.5-14.5) % Plt Count 229 (130-400) K/uL MPV 10.5 (9.4-12.4) fL Immature Gran % (Auto) 0.5 % Neut % (Auto) 80.5 % Lymph % (Auto) 13.1 % [place] % (Auto) 5.6 % Eos % (Auto) 0.1 % Baso % (Auto) 0.2 % Neut # (Auto) 8.28 H (1.40-6.50) K/uL Lymph # (Auto) 1.35 (1.20-3.40) K/uL [place] # (Auto) 0.58 (0.11-0.59) K/uL Eos # (Auto) 0.01 (0.00-0.50) K/uL Baso # (Auto) 0.02 (0.00-0.20) K/uL Immature Gran # (Auto) 0.05 (0.01-0.20) K/uL Sodium 138 (136-145) mmol/L Potassium 5.0 (3.5-5.1) mmol/L Chloride 101 (98-107) mmol/L Carbon Dioxide 31 (21-32) mmol/L Anion Gap 6 (3-11) BUN 10 (6-23) mg/dl Creatinine 0.85 (0.6-1.2) mg/dl Est Cr Clr Drug Dosing 62.2 ml/min eGFR 70.52 BUN/Creatinine Ratio 11.8 (10-20) Glucose 164 H (70-99(Fasting)) mg/dl POC Glucose 161 H 240 H (70-99) mg/dl Calcium 8.4 L (8.6-10.3) mg/dl Total Bilirubin 0.4 (0.2-1.0) mg/dl AST 11 L (13-39) U/L ALT 4 L (7-52) U/L Alkaline Phosphatase 59 (34-104) U/L Total Protein 6.6 (6.0-8.3) gm/dl Albumin 3.8 (3.4-5.0) gm/dl Globulin 2.8 (2.5-4.0) gm/dl Albumin/Globulin Ratio 1.4 (0.9-2) 02/24/25 02/24/25 02/24/25 Range/Units 20:08 16:58 12:50 WBC (4.8-10.8) K/ul RBC (4.20-5.40) M/uL Hgb (12.0-16.0) g/dl Hct (37.0-47.0) % MCV (80.0-100.0) fL MCH (25.0-34.0) pg MCHC (32.0-36.0) g/dL RDW Std Deviation (36.4-46.3) fL RDW Coeff of Zen (11.5-14.5) % Plt Count (130-400) K/uL MPV (9.4-12.4) fL Immature Gran % (Auto) % Neut % (Auto) % Lymph % (Auto) % [place] % (Auto) % Eos % (Auto) % Baso % (Auto) % Neut # (Auto) (1.40-6.50) K/uL Lymph # (Auto) (1.20-3.40) K/uL [place] # (Auto) (0.11-0.59) K/uL Eos # (Auto) (0.00-0.50) K/uL Baso # (Auto) (0.00-0.20) K/uL Immature Gran # (Auto) (0.01-0.20) K/uL Sodium (136-145) mmol/L Potassium (3.5-5.1) mmol/L Chloride (98-107) mmol/L Carbon Dioxide (21-32) mmol/L Anion Gap (3-11) BUN (6-23) mg/dl Creatinine (0.6-1.2) mg/dl Est Cr Clr Drug Dosing ml/min eGFR BUN/Creatinine Ratio (10-20) Glucose (70-99(Fasting)) mg/dl POC Glucose 282 H 235 H 132 H (70-99) mg/dl Calcium (8.6-10.3) mg/dl Total Bilirubin (0.2-1.0) mg/dl AST (13-39) U/L ALT (7-52) U/L Alkaline Phosphatase (34-104) U/L Total Protein (6.0-8.3) gm/dl Albumin (3.4-5.0) gm/dl Globulin (2.5-4.0) gm/dl Albumin/Globulin Ratio (0.9-2) 07/30/25 Range/Units 11:03 WBC (4.8-10.8) K/ul RBC (4.20-5.40) M/uL Hgb (12.0-16.0) g/dl Hct (37.0-47.0) % MCV (80.0-100.0) fL MCH (25.0-34.0) pg MCHC (32.0-36.0) g/dL RDW Std Deviation (36.4-46.3) fL RDW Coeff of Zen (11.5-14.5) % Plt Count (130-400) K/uL MPV (9.4-12.4) fL Immature Gran % (Auto) % Neut % (Auto) % Lymph % (Auto) % [place] % (Auto) % Eos % (Auto) % Baso % (Auto) % Neut # (Auto) (1.40-6.50) K/uL Lymph # (Auto) (1.20-3.40) K/uL [place] # (Auto) (0.11-0.59) K/uL Eos # (Auto) (0.00-0.50) K/uL Baso # (Auto) (0.00-0.20) K/uL Immature Gran # (Auto) (0.01-0.20) K/uL Sodium (136-145) mmol/L Potassium (3.5-5.1) mmol/L Chloride (98-107) mmol/L Carbon Dioxide (21-32) mmol/L Anion Gap (3-11) BUN (6-23) mg/dl Creatinine (0.6-1.2) mg/dl Est Cr Clr Drug Dosing ml/min eGFR BUN/Creatinine Ratio (10-20) Glucose (70-99(Fasting)) mg/dl POC Glucose 112 H (70-99) mg/dl Calcium (8.6-10.3) mg/dl Total Bilirubin (0.2-1.0) mg/dl AST (13-39) U/L ALT (7-52) U/L Alkaline Phosphatase (34-104) U/L Total Protein (6.0-8.3) gm/dl Albumin (3.4-5.0) gm/dl Globulin (2.5-4.0) gm/dl Albumin/Globulin Ratio (0.9-2) (1) Acute appendicitis Acute appendicitis type: with localized peritonitis Appendicitis abscess presence: without abscess Appendicitis gangrene presence: without gangrene Appendicitis perforation presence: without perforation Qualified Code(s): K35.30 - Acute appendicitis with localized peritonitis, without perforation or gangrene
[2025-02-25 11:42] VITALS: BP 122/65; TEMP 98.1; O2SAT 98
--- NOTE | 2025-02-25 13:51 | Discharge Summary ---
Discharge Summary Date of Service February 25, 2025 Principal Dx & Hospital Course #1 = Principal Diagnosis (1) Acute appendicitis: (2) SIRS due to non-infectious process without acute organ dysfunction: Plan In summary this is a 79-year-old female who presented with right lower quadrant abdominal pain found to have acute appendicitis, now postoperative day 0 from an uncomplicated laparoscopic appendectomy #Acute appendicitis with SIRS Initially presented with tachycardia, leukocytosis, and elevated lactic acid; without additional markers or evidence of systemic infection, these findings are most likely reactive from the acutely inflamed appendix; blood cultures no growth at the time of discharge -Zosyn discontinued 02/25 #Chronic Respiratory failure with Hypoxia Continue chronic therapies Admission HPI Per Admitting Provider Patient is a 72-year-old female with past medical history of COPD on chronic oxygen (4L), type II DM on chronic insulin, Parkinson's. Patient presented due to right lower quadrant abdominal pain and poor appetite that began at 3 PM this evening found to have acute appendicitis meeting SIRS criteria with tachycardia (HR 117), tachypnea (RR 131), leukocytosis (WBC 13.24). Patient seen at bedside. She stated at 3 PM she developed right lower quadrant abdominal pain and has had poor appetite for the past few days. She denies any fevers, nausea, vomiting, diarrhea. Patient also reports recent chest congestion that went away after treatment for pneumonia about a month ago however has now returned with cough and yellow mucus production, after morphine in ED patient became hypoxic requiring 7L NC (uses 4L NC at baseline). She denies any chest pain, feeling dyspnea. She was a former smoker, currently denies any nicotine use. Is due for her evening medications. Wishes to be DNR/DNI. Discharge Exam General: Adult in no acute distress Vital Signs: Reviewed; slightly elevated heart rate HEENT: Normocephalic, atraumatic; pupils equally reactive to light, extraocular motions intact; moist mucous membranes Neck: No palpable lymphadenopathy Pulmonary: symmetric chest wall excursion; CTAB Cardiovascular: Regular rate and rhythm with no murmurs, rubs, or gallops; S1 and S2 normal; bilateral radial and posterior tibial pulses 2+; no notable lower extremity edema Gastrointestinal: Soft, nondistended; low frequency and normal pitch of bowel sounds throughout; no palpable masses or organomegaly; laparoscopic surgical sites appear well Neurologic: CN II-XII grossly intact Discharge Plan Discharge Items Patient Disposition: Home - Self-Care Reason For Visit: ACUTE APPENDICITIS, SEPSIS Discharge Diagnosis: Uncomplicated acute appendicitis Condition on Discharge: Good Activity: Per Instructions section Lifting: No more than 5 pounds and Wait until after follow-up appointment Lifting Comment: Follow recommendations provided by general surgery Bathing Comment: Follow recommendations provided by general surgery Driving/Machine Use: Resume 3 days after discharge Weightbearing: Full weightbearing Non-emergency contact: Primary Care Provider and Surgeon Call non-emergency contact if: you have any medication questions, you have a fever and your wound has increased drainage Follow-up/Referrals: Justino Burns MD [Physician] - 03/10/25 2:00 pm (Postoperative check in) [facility] [Primary Care Provider] - Diet: Low Fiber Fluids: 1800ml (7 cups) Addtl Attending Provider Instructions: Please contact PCP office if you develop new or concerning symptoms. Maintain your follow up appointments as scheduled with General Surgery and contact your PCP for a post-hospitalization visit. Addtl Latin Teacher Provider Instructions: Post-Surgical ~Discharge Instructions Activity Recommendations: - lifting limitation: (20 pounds for 2 weeks), - exercise/sex/sports limit: (nonstrenuous for 2 weeks), - driving or machine use limit: (none for 1 week or until pain free and no longer taking narcotic pain medication), - Shower/bathe limit: (may shower beginning tomorrow, no submerging incisions underwater for 2 weeks) Diet: - Resume previous diet SPECIAL CARE INSTRUCTIONS: - May shower. Let water run over area and pat dry. - Leave surgical glue on incisions , this will fall off on its own. - Call the surgeon's office with any questions or concerns - - (ex. temperature higher than 101 degrees F, excessive bleeding or pain). MEDICATIONS: - Resume previous medications unless instructed otherwise by your surgeon. - May take extra strength Tylenol as needed for mild to moderate pain -650 mg Tylenol every 6 hours as needed - Percocet 1 every 6 hours, as needed for moderate to severe pain - Recommend daily stool softener (Colace) while taking narcotic pain medication to prevent constipation or straining. FOLLOW UP VISIT: - If not already scheduled, please call the office to schedule a two week follow-up appointment. Office number Pending Studies at Discharge: Yes Studies:: Pathology from surgical specimen Stand-Alone Forms: My [facility] Medications and DC Order Prescriptions: Continued revefenacin 175 mcg/3 mL solution for nebulization 175 mcg inhalation DAILY Gemtesa 75 mg tablet 75 mg PO DAILY (DME) Oxygen Home Liters Per Minute See Rx Instructions .MEDSUPPLY Qty: 1 0RF Rx Instructions: Oxygen concentrator. 3 l/m at rest and 4 l/m with exertion via n/c. Lifetime need. (DME) Oxygen Home Liters Per Minute See Rx Instructions .Route Qty: 1 0RF Rx Instructions: Discontinue humidification for oxygen per family request cranberry 500 mg capsule 500 mg PO DAILY Qty: 30 0RF Rx Instructions: administer with a meal ascorbic acid (vitamin C) 1,000 mg capsule 1 g PO DAILY Lantus Solostar U-100 Insulin 100 unit/mL (3 mL) insulin pen 50 unit subcut HS spironolactone 50 mg tablet 100 mg PO BIDM triamcinolone acetonide 0.1 % cream 1 applic topical Q8H PRN (Reason: Painful Hemorrhoids) ropinirole 1 mg tablet 1 mg PO HS 30 Days Qty: 30 6RF latanoprost 0.005 % drops 1 drp OPB DAILY tramadol 50 mg tablet 50 mg PO Q4H PRN (Reason: Pain) Artificial Tears (cmc) 1 % drops 1 drp ophthalmic (eye) DIRECTED PRN (Reason: Dry Eyes) Ohtuvayre 3 mg/2.5 mL suspension for nebulization 3 mg inhalation BID Qty: 150 11RF mirtazapine 7.5 mg tablet 7.5 mg PO HS Biofreeze (menthol) 4 % gel 1 applic topical Q4H PRN (Reason: Muscle Pain) quetiapine 25 mg tablet 37.5 mg PO BID lamotrigine 150 mg tablet 150 mg PO DAILY atorvastatin 10 mg tablet 10 mg PO HS acetaminophen [Tylenol Extra Strength] 500 mg Tablet 1,000 mg PO Q8H MDD 3 GRAMS APAP/24 HOURS PRN (Reason: Fever Or Pain) carbidopa-levodopa 50-200 mg Tablet Extended Release 1 tab PO HS [place] Vaporub 4.7-1.2-2.6 % Ointment 1 applic TOPICAL Q8H PRN (Reason: Congestion) oxymetazoline [Afrin (oxymetazoline)] 0.05 % [place],Non-Aerosol 2 spray INTRANASAL Q12H PRN (Reason: Nasal Congestion) Artificial Tears (cmc) 1 % Drops 1 drp OPB QID ondansetron HCl 8 mg Tablet 8 mg PO Q8H PRN (Reason: NAUSEA/VOMITING) desvenlafaxine succinate [Pristiq] 50 mg Tablet Extended Release 24 Hr 50 mg PO DAILY guaifenesin [Mucinex] 600 mg Tablet Extended Release 12hr 600 mg PO QAM arformoterol 15 mcg/2 mL solution for nebulization 2 ml INHALATION Q12H Saline Nasal 0.65 % Aerosol,[place] 2 spray INTRANASAL Q2H PRN (Reason: dry nares) Rx Instructions: while awake ipratropium-albuterol 0.5 mg-3 mg(2.5 mg base)/3 mL solution for nebulization 3 ml inhalation Q2H PRN (Reason: sob/wheezing) loperamide [Anti-Diarrheal (loperamide)] 2 mg capsule 2 mg PO DIRECTED PRN (Reason: loose stool) Rx Instructions: TAKE 4 MG FOR FIRST DOSE, THEN 2 MG AFTER EACH LOOSE STOOL FOR A MAXIMUM DOSE OF 16 MG A DAY budesonide 0.5 mg/2 mL suspension for nebulization 0.5 mg inhalation AMPM Rx Instructions: 0830 & 1800 ramelteon 8 mg Tablet 8 mg PO HS calcium carbonate 500 mg calcium (1,250 mg) Tablet 500 mg PO DAILY alum-mag hydroxide-simeth [Yvette-Lanta] 200-200-20 mg/5 mL Suspension 60 ml PO Q6H PRN (Reason: Dyspepsia) Rx Instructions: administer between meals and at bedtime insulin lispro [Humalog U-100 Insulin] 100 unit/mL Solution 5 unit SUBCUT TIDM insulin lispro [Humalog U-100 Insulin] 100 unit/mL Solution 1 sliding scale dose SUBCUT UD Rx Instructions: BSG 350-400=8 UNITS, 401-450=12 UNITS, 451-500=16 UNITS, 501-550=18 UNITS, RECHECK IN 2 HRS, 551-600=20 UNITS, RECHECK IN 1 HR, NOTIFY MD. Bain Saline Gel 1 applic TOPICAL TID Rx Instructions: APPLY TO BILAT NOSTRILS [place] Cough Drops 7.5 mg Lozenge 7.5 mg PO Q1H PRN (Reason: COUGH/SORE THROAT) hydrocortisone [Preparation H Hydrocortisone] 1 % Cream 1 applic TOPICAL Q6H PRN (Reason: Hemorrhoids) ergocalciferol (vitamin D2) [Vitamin D2] 1,250 mcg (50,000 unit) Capsule 1,250 mcg PO 2XWK Rx Instructions: SATURDAY & WEDNESDAYS Nuplazid 34 mg Capsule 34 mg PO DAILY carbidopa-levodopa [Sinemet] 25-100 mg tablet 1.5 tab PO TID Rx Instructions: 0830, 1230, & 1630 Viberzi 100 mg tablet 100 mg PO BIDM Held hydroxyzine pamoate 50 mg capsule 50 mg PO HS Hold Instructions: Resume on 03/04/25. Discuss use with PCP given risk for polypharmacy hydroxyzine HCl 25 mg tablet 25 mg PO Q8H PRN (Reason: Anxiety) Hold Instructions: Resume on 03/04/25. Discuss use with PCP given risk of polypharmacy Rx Instructions: Do not administer within eight hours before or after routine evening dose. Discharge Orders: Discharge Order (Routine); Ordered 02/25/25 Ordered By: Jean Shaikh/Other Patient Handouts: Appendectomy, After an Appendectomy Admission Data Admit Date/Time: 02/24/25 00:53 Attending Provider: Jean Marroquin Admit Provider: Bryan West Primary Care Provider: Fermín Hyatt Other Providers: John Sweeney; Bryan West; Fermín Hyatt Other Interventions: Discharge Summary Assessment (RN) Last Done: 02/25/25 12:38 Hospital Stay Data Consultations 02/24/25 00:25 Consult General Surgery Stat ED Decision to Admit Stat Procedures Performed Operation Date: 02/24/25 11:40 Actual Procedures p Laparoscopic Appendectomy(Not Applicable) - Justino Burns MD Diagnostic Imagining Performed 02/23/25 21:57 CT abd pelvis IV con only Stat Pending Results Patient Have Any Pending Studies at Discharge: Yes Discharge Instructions Given to Patient (Per Discharging Provider) Please contact PCP office if you develop new or concerning symptoms. Maintain your follow up appointments as scheduled with General Surgery and contact your PCP for a post-hospitalization visit. Total Time Total Time Spent Total Time Spent (In Minutes): 55 Coding Level of Care Code 66780 INP/OBS DISCH >30 MIN Diagnoses Acute appendicitis with localized peritonitis, without perforation, abscess, or gangrene K35.30 Acute appendicitis type: with localized peritonitis Appendicitis abscess presence: without abscess Appendicitis gangrene presence: without gangrene Appendicitis perforation presence: without perforation SIRS due to non-infectious process without acute organ dysfunction R65.10
[2025-02-25 14:35] VITALS: PULSE 81
--- NOTE | 2025-02-27 06:33 | Electrocardiogram Report ---
Test Reason : Blood Pressure : */* mmHG Vent. Rate : 103 BPM Atrial Rate : 103 BPM P-R Int : 156 ms QRS Dur : 78 ms QT Int : 364 ms P-R-T Axes : 75 48 73 degrees QTcB Int : 476 ms Sinus tachycardia Low voltage QRS Cannot rule out Anterior infarct , age undetermined Abnormal ECG When compared with ECG of 04-Feb-2025 14:51, Minimal criteria for Inferior infarct are no longer Present Nonspecific T wave abnormality no longer evident in Inferior leads Confirmed by Terrence Lewis ([id number]) on 02/27/2025 6:32:54 AM Referred By: REFERRED SELF Confirmed By: Terrence Lewis
== END 2025-02-25 15:11 | disposition home or self-care (01) ==
LOC: ED 21:21 → EDINP 21:21 → SUATTDRO 02-24 00:53 → EDINP 02-24 09:04 → 2W 02-24 09:41